=== PATIENT | male | born 1930 | race Caucasian/White ===

== ENCOUNTER → 2016-10-11 | Outpatient (CLI) | payer MEDICARE ==
[2016-10-11 13:23] LABS: Appearance,Urine Clear (Clear); Bilirubin,Urine Negative (Negative); Glucose,Urine (UA) Negative (Negative); Ketones,Urine Negative (Negative); Leukocyte Esterase,Urine Negative (Negative); Nitrite,Urine Negative (Negative); Protein,Urine Negative (Negative); Specific Gravity,Urine 1.004 (1.001-1.035); UA Billing (MACRO vs. MICRO) CHEM; Urobilinogen,Urine <2.0 mg/dL (<2.0)
[2016-10-11 13:25] LABS: CH 32.4; CHCM 32.7; HCT 37.4 % (39.0-53.0); HDW 2.56; HGB 12.6 gm/dL (13.0-17.5); MCH 33.5 pg (25.0-35.0); MCHC 33.7 g/dL (31.0-37.0); MCV 99.5 fL (80.0-100.0); Mean Platelet Volume 8.7; RBC 3.76 m/uL (4.30-5.90); RDW 14.3 % (11.5-15.5); WBC 6.2 k/uL (3.8-10.6)
[2016-10-11 13:30] LABS: INR 1.1 (<1.2); Partial Thromboplastin Time 24.8 sec (22.0-30.0)
[2016-10-11 13:38] LABS: ALT 28 U/L (21-72); AST 23 U/L (17-59); Alkaline Phosphatase 54 U/L (38-126); Anion Gap 7 mmol/L; Blood Urea Nitrogen 14 mg/dL (9-20); Calcium 9.4 mg/dL (8.4-10.2); Carbon Dioxide 28 mmol/L (22-30); Chloride 102 mmol/L (98-107); Glucose 96 mg/dL (74-99); Non-African American GFR(MDRD) >60 (>60 ml/min/1.73 sqM); Potassium 4.3 mmol/L (3.5-5.1); Sodium 137 mmol/L (137-145); Total Bilirubin 0.9 mg/dL (0.2-1.3); Total Protein 7.5 g/dL (6.3-8.2)
== END | disposition home or self-care (01) ==
LOC: LABPAT 12:53
PROVIDERS: ATTEND Orthopaedic Surgery
DX: Z01.812 Encounter for preprocedural laboratory examination (principal)
CPT/HCPCS: 80053; 81003; 85027; 85610; 85730

== ENCOUNTER → 2016-10-14 | Outpatient (CLI) | payer MEDICARE | END | disposition home or self-care (01) | LOC: LABWHC1 11:55 | PROVIDERS: ATTEND Orthopaedic Surgery | DX: Z01.812 Encounter for preprocedural laboratory examination (principal) | CPT/HCPCS: 87070 ==

== ENCOUNTER 2016-10-22 05:49 | Inpatient (IN) | payer MEDICARE ==
--- NOTE | 2016-10-04 16:15 | CONS ---
Consultation regarding preop medical evaluation. HISTORY OF PRESENT ILLNESS: This gentleman, 85-years of age is scheduled to undergo a right direct anterior approach total hip arthroplasty. I have been asked to see the patient preoperatively by the surgeon. The patient basically has pain in the lower back and right hip area, otherwise denies any other major complaints. He does have a history of coronary artery disease with previous CABG. The patient has had no symptoms. Last stress Cardiolite two years ago was negative. The patient has good left ventricular function and no symptoms of angina at present. Patient previously had a CABG in April 2009. Back in October 2009 he had a pericarditis post ( ) syndrome with no substance recurrence. The patient has been having significant back pain and hip pain. Symptoms have been progressive. He previously had epidurals back in April 2016. Not much help. The patient subsequently went to see neurosurgeon. He has seen orthopedic surgeons before and MRI had shown his hip was pretty good. The patient subsequently went in to see a back surgeon that felt that the patients pain was more from the hip. Further evaluation done with orthopedics showed that his hip has deteriorated rapidly. Unclear of the cause of that. They did an EMG that suggested possible myopathy related to statin use. The patient however, denies any other major concerns. He has had no recent infections or bleeding. PAST MEDICAL HISTORY: Significant for carcinoma of the prostate diagnosed September 04, 1995 with no evidence of recurrence. He had a total prostatectomy. History of coronary artery disease diagnosed first for unstable angina back in April 2009, subsequent CABG. History of pericarditis in 2009 resolved, history of degenerative arthritis especially effecting the lumbosacral spine with history of scoliosis of longstanding. No history of any other malignancy, liver disease , kidney disease, ulcers, TB, hepatitis, rheumatic fever. No history of any CVA. PAST SURGICAL HISTORY: Significant for bilateral cataract surgery and total prostatectomy and CABG. PERSONAL HISTORY: Quit smoking about 28 years ago. Used to smoke a pack a day for 13-years. Alcohol none. Vaccinations up to date. Pneumovax June 13, 2016. ALLERGIES: None known. Medications at present include: Aspirin daily, metoprolol 25 mg daily, simvastatin 20 mg daily, Prilosec 15 mg daily, aspirin 81 mg daily. SOCIAL HISTORY: Patient and lives with spouse. FAMILY MEDICAL HISTORY: Father at the age of 54 of cerebral hemorrhage. Mother at the age of 90, history of CVA at 48. She had diabetes mellitus. The patient had sister at age 85, history of diabetes mellitus, gastroesophageal reflux and hypertension. Patient has a son 56 years of age who has history of valvular heart disease post surgery. Has two daughters in adequate health. REVIEW OF SYSTEMS: NEUROLOGIC: Denies any headaches, dizziness. PSYCHIATRIC: No anxiety, depression. CARDIAC: No chest pain, angina, palpitations. RESPIRATORY: No shortness of breath, cough, hemoptysis. GASTROINTESTINAL: No nausea, vomiting, abdominal pain, diarrhea. GENITOURINARY: No symptoms of dysuria, hematuria, urgency or frequency. EXTREMITIES: Denies pain or edema. Constitutional: No fever, chills. HEMATOLOGICAL: No anemia, bleeding disorder. ENDOCRINE: No history of diabetes mellitus, hypothyroidism. SKIN: No rash or open sores. MUSCULOSKELETAL: Right hip pain, lower back pain. CONSTITUTIONAL: No fever or chills. PHYSICAL EXAMINATION: GENERAL: An 85-year-old gentleman who appears to be stated age, in no distress. VITAL SIGNS: Blood pressure 140/90, weight 176 pounds, 5 feet 8 inches tall, pulse 66 regular. HEENT: Normocephalic. Neck supple. Pupils reactive. Nostrils clear. Oral cavity is moist. The dentition is maintained. Ears reveal no drainage. Decreased hearing. No JVD. No carotid bruit or thyromegaly. CHEST: Clear to auscultation and percussion. CARDIAC: Normal S1, S2 with no gallops, murmurs or rubs. ABDOMEN: Soft. Bowel sounds are normal. EXTREMITIES: Reveals no edema. Good pulses both upper and lower extremities. Marked decreased range of motion right hip with pain. There is some decreased range of motion of left hip as well. Good pedal pulses. NEUROLOGIC: Awake, alert, oriented x3 with well coordinated movements of upper and lower extremities with decreased range of motion at the hip joint. LABORATORY ASSESSMENT: EKG, which shows heart rate 66 irregular, post degree AV block and left axis deviation. ASSESSMENT: 1. Coronary artery disease, stable. 2. Degenerative arthritis. 3. Gastroesophageal reflux. PLAN/RECOMMENDATIONS: The patient is stable to undergo the planned surgical procedure. The patients status is discussed with the patient. Benefits and risks are discussed. Postoperative prophylaxis for DVT. The patients condition discussed with the patient. Patient will take his metoprolol with sip of water in the morning of surgery. Other medications will be held. EFREN
[2016-10-11 11:13] VITALS: BMI 26.2
[~2016-10-22 05:49] MED LIST: ACETAMINOPHEN TAB 500 MG TAB PO ONE; DEXAMETHASONE SOD PHOSPHATE 10 MG/ML 1 ML VIAL IV ONE; HYDROmorphone 1 MG/ML 1 ML SYRINGE IVP PRN; LIDOCAINE 1% 20 ML VIAL (10MG/ML) FOR IV START INTRADERMA PRN; MELOXICAM 7.5 MG TAB PO ONE; ONDANSETRON 4 MG/2 ML VIAL IVP ONE; TRANEXAMIC ACID 1,000 MG in SODIUM CHLORIDE 0.9% 100 ML IVPB ONE; ceFAZolin 2 GM in SODIUM CHLORIDE 0.9% 100 ML IVPB ONE
[2016-10-22] MEDS ORDERED: ROPIVACAINE 246.25 MG, EPINEPHrine 0.5 MG, KETOROLAC 30 MG, cloNIDine HCL/PF 80 MCG, WA... MISCELLANE ONE ×5 (05:51)
[2016-10-22] MEDS: LACTATED RINGERS 1,000 ML IV SCH (06:51)
[2016-10-22] MEDS ORDERED: hydrOXYzine PAMOATE 25 MG CAP PO PRN (07:26)
[2016-10-22] MEDS ORDERED: HYDROcodone/APAP 7.5-325MG 1 EACH TAB PO PRN (07:26)
[2016-10-22] MEDS ORDERED: HYDROmorphone 1 MG/ML 1 ML SYRINGE IVP PRN ×2 (07:26)
[2016-10-22] MEDS ORDERED: DIAZEPAM 5 MG TAB PO PRN ×2 (07:26)
[2016-10-22] MEDS ORDERED: NALOXONE 0.4 MG/ML 1 ML VIAL IV PRN (07:26)
[2016-10-22] MEDS ORDERED: ONDANSETRON 4 MG/2 ML VIAL IVP PRN (07:26)
[2016-10-22] MEDS ORDERED: MAGNESIUM HYDROXIDE 2,400 MG/10 ML CUP PO PRN (07:26)
[2016-10-22] MEDS ORDERED: TRANEXAMIC ACID 1,000 MG/10 ML VIAL ONE (07:30)
[2016-10-22] MEDS ORDERED: fentaNYL (PF) 50 MCG/ML 2 ML AMP ONE (07:30)
[2016-10-22] MEDS ORDERED: PHENYLEPHRINE-0.9% NACL SYG 1 MG/10 ML SYRINGE ONE (07:30)
[2016-10-22] MEDS ORDERED: PROPOFOL 10 MG/ML 20 ML VIAL IV ONE (07:30)
[2016-10-22] MEDS ORDERED: SODIUM CHLORIDE 0.9% 100 ML BAG ONE (07:30)
[2016-10-22] MEDS ORDERED: MIDAZOLAM 2 MG/2 ML VIAL ONE (07:30)
[2016-10-22] MEDS ORDERED: diphenhydrAMINE 50 MG/ML 1 ML VIAL ONE (07:30)
[2016-10-22] MEDS ORDERED: ePHEDrine SULFATE/0.9% NACL/PF 50 MG/5 ML SYRINGE IV ONE (07:30)
[2016-10-22] MEDS ORDERED: ceFAZolin 3,000 MG in SODIUM CHLORIDE 0.9% IRRIGATIO 3,000 ML IRRIGATION ONE (08:29)
[2016-10-22] MEDS ORDERED: MELOXICAM 7.5 MG TAB PO SCH (09:00)
[2016-10-22] MEDS ORDERED: LACTATED RINGERS 1,000 ML IV ONE (09:10)
--- NOTE | 2016-10-22 09:18 | FL ---
EXAMINATION TYPE: FL guidance operating room DATE OF EXAM: 10/22/2016 HISTORY: Flouroscopy time 34 seconds of fluoroscopy provided. IMPRESSION: 1. Fluoroscopy time.
--- NOTE | 2016-10-22 09:19 | XR ---
EXAMINATION TYPE: XR Hip Limited RT DATE OF EXAM: 10/22/2016 COMPARISON: NONE HISTORY: hip replacement TECHNIQUE: One view submitted. FINDINGS: There is a prosthetic hip in near anatomic alignment. There is soft tissue edema and emphysema. IMPRESSION: 1. Postoperative change. Appears in near-anatomic alignment.
--- NOTE | 2016-10-22 09:31 | P.OP ---
Date of Procedure: 10/22/16 Preoperative Diagnosis: Severe osteoarthritis right hip Postoperative Diagnosis: Severe osteoarthritis right hip Procedure(s) Performed: Right total hip arthroplasty with a direct anterior approach Implants: Horn and nephew Polarstem size 6 standard Horn & Nephew R3, 3 hole acetabular shell, 52 mm Horn & Nephew reflection 6.5 mm cancellus screw, 20 mm 2 Horn & Nephew R3, XLPE 20 acetabular liner Horn & Nephew Oxinium femoral head 36 m, +8 All components were press-fit. The articulation is ceramic on polyethylene. Anesthesia: spinal Surgeon: Chapin Emery Bottler #1: Nikki Guerrier Estimated Blood Loss (ml): 1,600 (667 mL returned with Cell Saver) Pathology: other (Femoral head) Condition: stable Disposition: PACU Indications for Procedure: After failure of conservative treatment we discussed the surgical and nonsurgical treatment options at length. Patient wishes to proceed with a total hip arthroplasty with a direct anterior approach. Complications specific to this procedure were discussed at length, including but not limited to infection, leg length discrepancy, dislocation, and nerve injury. Patient is aware of all these complications and informed consent was obtained Operative Findings: The operative findings are consistent with severe osteoarthritis of the right hip Description of Procedure: Patient was seen and evaluated in the preoperative area, consent was reviewed, and the surgical site was marked with a skin marker. Patient was then brought to the operating room and given prophylactic antibiotics intravenously. 1 g of Tranexamic acid was also given. A spinal anesthetic was administered by the anesthesia department. The patient was then placed on the Rose table with the bony prominences well-padded. The hip area was then prepped and draped in usual sterile fashion. A universal timeout was then performed, which confirmed the patient's name, surgical site, ALLERGIES, and procedure being performed. Next the incision site was located at 1 cm distal and 1 cm lateral to the anterior superior iliac spine. The skin and subcutaneous tissues were sharply incised. Incision was carefully dissected down to the fascia overlying the tensor fascia libby muscle. This fascia was then incised in line with the incision. Next, using blunt finger dissection, the tensor fascia libby muscle was dissected off its investing fascia. The muscle was then carefully retracted laterally with a cobra retractor over the lateral neck of the femur. Next, the circumflex vessels were identified and cauterized using the AquaMantis device. The anterior hip capsule was then exposed. The capsule was then opened and an inverted T fashion. Cobra retractors were then placed intracapsularly. The proximal femur was then visualized. The femoral neck was then osteotomized appropriate level above the lesser trochanter. Small amount of traction was placed with the Rose table. A small wedge of bone was then removed from the remaining femoral head. Next, using a corkscrew femoral head was easily removed from the acetabulum. On gross visual inspection, the femoral head had complete loss of articular cartilage in multiple periarticular osteophytes. Attention was then turned to the acetabulum. the acetabulum was exposed and any remaining labrum was excised. Sequential reaming of the acetabulum was performed using fluoroscopic guidance. When the appropriate size was reached, a trial was then placed. The position and fit of the trial was checked with fluoroscopy. The trial was then removed. Then, using fluoroscopic guidance, the final implant was impacted at 20 of anteversion and 40 of abduction, and fully seated in the acetabulum. 2 screws were then placed in the acetabulum. Again fluoroscopy was used to check position of the screws. Next, the liner was then impacted, with a 20 elevated liner located in the anterior superior quadrant. Component locking was confirmed. Attention was then directed to the femur. With the aid of the Rose table, the femur was externally rotated to approximately 130, extended, and abducted under the opposite leg. A side hook was then placed under the proximal femur, and the side hook elevator was used to elevate the proximal femur. Retractors were then placed. A capsular release was performed, as well as a release of the conjoined tendon, which afforded excellent visualization of the proximal femur. Next, a box osteotome was used to lateralize the proximal femur. A chandelier maker was then used to locate the femoral canal. Sequential broaching was then performed with appropriate size which afforded excellent fixation in the proximal femur. A trial was then placed with appropriate head and neck, and the hip was gently reduced with the aid of the Rose table. Fluoroscopy was then used to check position of the components, as well as to ensure equal leg lengths. The hip was then gently dislocated and the trials were then removed. Final implants were then impacted and the hip was again reduced. Prior to reduction, bone wax was placed around the femoral component due to the continuous blood loss from the canal. After placement of the bone wax, there was significant decrease in bleeding from the canal. Final fluoroscopic x-rays confirmed that the components were in anatomic position, as well as equal leg lengths. The hip was also taken through range of motion, and found to be stable. The hip was then copiously irrigated with antibiotic solution with pulsatile lavage. The hip was then irrigated with Irrisept solution. The soft tissues were then injected with a ropivacaine solution, which consisted of 246.25 mg of ropivacaine, 0.5 mg of epinephrine, 30 mg of Toradol, 80 g of clonidine, and 48.45 mL of sterile water, for a total of 100 mL of fluid injected. A second dose of 1 g of Tranexamic acid was also given. the fascia was then closed with 2-0 strata fix suture. The subcutaneous tissue was closed with 3-0 Vicryl. The subcuticular tissue was closed with 3-0 strata fix suture. The skin was then closed with Dermabond tape. The patient was then transferred to the recovery room in stable condition. The assistant housekeeping manager CHYNA Beard was required due to the complexity of surgery, and the need for skilled assistant professor of economics for positioning, draping, exposure, retraction, and closure of the wound.
--- NOTE | 2016-10-22 10:06 | XR ---
EXAMINATION TYPE: XR Hip Limited RT DATE OF EXAM: 10/22/2016 COMPARISON: NONE HISTORY: Postop right hip replacement TECHNIQUE: One view submitted. FINDINGS: There is a prosthetic hip in near anatomic alignment. There is soft tissue edema and emphysema. Surg ical clips in the pelvis noted. IMPRESSION: 1. Postoperative change. Appears in near-anatomic alignment.
[2016-10-22] MEDS: ASPIRIN 325 MG TAB PO SCH ×2 (12:09→22:21)
[2016-10-22] MEDS: HYDROmorphone 1 MG/ML 1 ML SYRINGE IVP PRN ×2 (13:24→23:33)
[2016-10-22 14:18] LABS: Basophils % (A) 0 %; CH 30.4; CHCM 31.4; Eosinophils % (A) 0 %; HCT 36.1 % (39.0-53.0); HDW 2.63; HGB 11.9 gm/dL (13.0-17.5); Hypochromasia Slight; Luc # (Auto) 0.08; Luc % (Auto) 1; Lymphocytes # (A) 0.6 k/uL (1.0-4.8); Lymphocytes % (A) 4 %; MCH 32.1 pg (25.0-35.0); MCHC 32.9 g/dL (31.0-37.0); MCV 97.5 fL (80.0-100.0); Mean Platelet Volume 8.2; Monocytes # (A) 0.5 k/uL (0-1.0); Monocytes % (A) 4 %; Neutrophils % (A) 91 %; RDW 13.7 % (11.5-15.5); WBC 13.2 k/uL (3.8-10.6); WBC (Perox) 13.75
[2016-10-22] MEDS: ceFAZolin 2 GM in SODIUM CHLORIDE 0.9% 100 ML IVPB SCH (16:01)
[2016-10-22] MEDS: SODIUM CHLORIDE 0.9% 1,000 ML IV SCH (21:42)
[2016-10-22] MEDS: SENNOSIDES-DOCUSATE SODIUM 1 EACH TAB PO SCH (22:21)
[2016-10-22] MEDS: METOPROLOL TARTRATE 25 MG TAB PO SCH (23:32)
[2016-10-23] MEDS: SODIUM CHLORIDE 0.9% 1,000 ML IV SCH ×2 (00:51→09:42)
[2016-10-23] MEDS: ceFAZolin 2 GM in SODIUM CHLORIDE 0.9% 100 ML IVPB SCH (00:51)
[2016-10-23 04:39] VITALS: RESP 16
[2016-10-23] MEDS: HYDROcodone/APAP 7.5-325MG 1 EACH TAB PO PRN ×3 (04:56→17:34)
[2016-10-23] MEDS: LACTATED RINGERS 1,000 ML IV SCH (06:22)
[2016-10-23 07:59] LABS: Basophils % (A) 0 %; CH 31.1; CHCM 32.4; Eosinophils % (A) 1 %; HCT 25.7 % (39.0-53.0); HDW 2.67; Luc # (Auto) 0.15; Luc % (Auto) 2; Lymphocytes # (A) 0.9 k/uL (1.0-4.8); Lymphocytes % (A) 13 %; MCH 32.5 pg (25.0-35.0); MCHC 33.8 g/dL (31.0-37.0); MCV 96.3 fL (80.0-100.0); Mean Platelet Volume 8.2; Monocytes # (A) 0.4 k/uL (0-1.0); Monocytes % (A) 6 %; Neutrophils # (A) 5.3 k/uL (1.3-7.7); Neutrophils % (A) 78 %; RBC 2.67 m/uL (4.30-5.90); RDW 14.1 % (11.5-15.5); WBC 6.8 k/uL (3.8-10.6); WBC (Perox) 7.15
[2016-10-23 08:03] LABS: HGB 8.7 gm/dL (13.0-17.5)
[2016-10-23] MEDS: ASPIRIN 325 MG TAB PO SCH ×2 (08:12→20:14)
[2016-10-23] MEDS: METOPROLOL TARTRATE 25 MG TAB PO SCH ×2 (08:12→20:14)
[2016-10-23] MEDS: MELOXICAM 7.5 MG TAB PO SCH (08:12)
--- NOTE | 2016-10-23 09:23 | PN ---
PROGRESS NOTE CHIEF COMPLAINT: Reevaluation. HISTORY OF PRESENT ILLNESS: This is an 85-year-old gentleman who has undergone right total hip arthroplasty. He is doing well. He has been actually up in the chair and walked. REVIEW OF SYSTEMS: Neuro: Denies any headaches or dizziness. Psych: No anxiety. Cardiac: No chest pain, angina, palpitations. Respiratory: No shortness of breath, cough, hemoptysis. GI: No nausea, vomiting, abdominal pain, diarrhea. : No symptoms of dysuria, hematuria, urgency, frequency. He has not been able to void much. Extremities: Denies pain or edema. Constitutional: No fevers or chills. PHYSICAL EXAMINATION: GENERAL: Pleasant gentleman in no distress. VITAL SIGNS: Temperature 97.8, pulse 79, respirations 17, blood pressure 141/78, pulse ox 95% on room air. HEENT: Normocephalic. NECK: Supple. No JVD. CHEST: Clear to auscultation. CARDIAC: Normal S1, S2 with no gallops or murmurs. ABDOMEN: Soft. Bowel sounds present. EXTREMITIES: Reveal no edema. Good pulses in both upper and lower extremities. NEUROLOGIC: Awake, alert, oriented, with well coordinated movements. LABORATORY ASSESSMENT: CBC revealed a hemoglobin of 11.9 and white count 13.2. ASSESSMENT: 1. Coronary artery disease, stable. 2. Degenerative joint disease, status post right hip arthroplasty. 3. Remote history of carcinoma of the prostate. PLAN: The patient is stable. Continue present medical regimen. Patient's condition discussed with the patient. Prognosis guarded. MMODL / IJN: [id number] /
--- NOTE | 2016-10-23 09:37 | P.PN ---
Subjective Principal diagnosis: Primary osteoarthritis right hip, status post right total hip arthroplasty. This is a pleasant 85-year-old male who is status post total right hip arthroplasty on 10/22/2016. Patient is seen and evaluated at bedside with Dr. Chapin Emery. Patient states he did experience an increase in pain over the night but states his pain is controlled with pain medication. Patient has been up and out of bed. Patient denies any new complaints or numbness, tingling or weakness. Objective - Vital Signs Vital signs: Vital Signs Temp 97.8 F 10/23/16 07:00 Pulse 74 10/23/16 07:00 Resp 16 10/23/16 07:00 BP 106/61 10/23/16 07:00 Pulse Ox 98 10/23/16 07:00 Intake & Output 10/22/16 10/23/16 10/23/16 18:59 06:59 18:59 Intake Total 1401 2095 180 Output Total 1600 1300 Balance -199 795 180 Weight 77.111 kg Intake: IV 1401 520 Sodium Chloride 0.9% 1, 200 520 000 ml @ 65 mls/hr IV . [id number] [facility] Rx#:[id number] Oral 1575 180 Output: Urine 1300 Estimated Blood Loss 1600 Other: Voiding Method Urinal Urinal - Exam Vital signs are stable. Patient is in no acute distress and is alert and oriented 3. Calf is soft and nontender. Incision is clean, dry, and intact. Neurovascular status intact. Patient has full foot and ankle motion. - Labs CBC & Chem 7: 10/23/16 06:13 Labs: Abnormal Lab Results - Last 24 Hours (Table) 10/22/16 10/23/16 Range/Units 13:31 06:13 WBC 13.2 H (3.8-10.6) k/uL RBC 3.70 L 2.67 L (4.30-5.90) m/uL Hgb 11.9 L 8.7 L D (13.0-17.5) gm/dL Hct 36.1 L 25.7 L (39.0-53.0) % Plt Count 119 L (150-450) k/uL Neutrophils # 12.0 H (1.3-7.7) k/uL Lymphocytes # 0.6 L 0.9 L (1.0-4.8) k/uL Assessment and Plan (1) Primary osteoarthritis of right hip Status: Acute (2) S/P total hip arthroplasty Status: Acute Plan: Continue routine postop care. Continue antocoagulation. Weightbearing as tolerated with a walker Daily dressing changes, keep incision clean and dry Possible discharge home tomorrow.
[2016-10-23] MEDS: SENNOSIDES-DOCUSATE SODIUM 1 EACH TAB PO SCH (20:14)
[2016-10-24] MEDS: LACTATED RINGERS 1,000 ML IV SCH (00:48)
[2016-10-24] MEDS: HYDROcodone/APAP 7.5-325MG 1 EACH TAB PO PRN ×2 (04:54→11:24)
[2016-10-24] MEDS: SODIUM CHLORIDE 0.9% 1,000 ML IV SCH (06:37)
[2016-10-24 07:09] LABS: Basophils % (A) 0 %; CH 30.9; CHCM 32.4; Eosinophils % (A) 1 %; HCT 24.8 % (39.0-53.0); HDW 2.57; HGB 8.3 gm/dL (13.0-17.5); Luc # (Auto) 0.15; Luc % (Auto) 2; Lymphocytes # (A) 0.9 k/uL (1.0-4.8); Lymphocytes % (A) 10 %; MCHC 33.4 g/dL (31.0-37.0); MCV 95.8 fL (80.0-100.0); Mean Platelet Volume 8.2; Monocytes # (A) 0.6 k/uL (0-1.0); Monocytes % (A) 8 %; Neutrophils # (A) 6.7 k/uL (1.3-7.7); Neutrophils % (A) 80 %; RBC 2.59 m/uL (4.30-5.90); WBC 8.3 k/uL (3.8-10.6); WBC (Perox) 8.35
[2016-10-24 07:51] VITALS: BP 123/67; PULSE 81; TEMP 98.7
[2016-10-24] MEDS: MELOXICAM 7.5 MG TAB PO SCH (08:14)
[2016-10-24] MEDS: ASPIRIN 325 MG TAB PO SCH (08:14)
[2016-10-24] MEDS: METOPROLOL TARTRATE 25 MG TAB PO SCH (08:14)
--- NOTE | 2016-10-24 08:21 | P.DS ---
Providers Date of admission: 10/22/16 05:49 Expected date of discharge: 10/24/16 Attending physician: Chapin Emery Consults: 10/22/16 07:26 Consult Physician Routine Consulting Provider: Juwan Hadley Consult Reason/Comments: medical management Do you want consulting provider notified?: Yes Primary care physician: Juwan Hadley - Discharge Diagnosis(es) (1) Primary osteoarthritis of right hip Current Visit: Yes Status: Acute (2) S/P total hip arthroplasty Current Visit: Yes Status: Acute Hospital Course: This is a 85-year-old male with known history of degenerative arthritis of the right hip. The patient presents for evaluation. After discussion and consideration patient elects to proceed with total hip arthroplasty. The patient is seen preoperatively by Dr. Emeyr and cleared for surgery. Patient is admitted to [facility] on 10/22/2016 for total hip arthroplasty. The procedures performed without complication or sequelae. The patient is doing well postoperatively. Labs and vital signs are stable on day of discharge. On day of discharge patient's hip incision is healing well. There is minimal erythema. There is no drainage noted at this time. There is minimal soft tissue swelling to the hip and thigh. Patient has full foot and ankle motion without difficulty or pain. Neurovascular status to the right lower extremity is intact. Patient is discharged home in good condition.Please see med rec for accurate list of home medications. Plan - Discharge Summary New Discharge Prescriptions: Continue Simvastatin [Zocor] 40 mg PO HS Multivitamins, Thera [Multivitamin (formulary)] 1 tab PO DAILY Metoprolol Tartrate 25 mg PO BID Ibuprofen [Motrin] 600 mg PO Q8HR PRN PRN Reason: Pain Aspirin [Adult Low Dose Aspirin EC] 81 mg PO DAILY Hydrocodone/Acetaminophen [[place] 7.5-325] 0.5 tab PO QID PRN PRN Reason: Pain Glucosam/Alan-Msm1/C/[place]/Bosw [Glucosamine-[place]ondroitin Tablet] 1 tab PO DAILY Discharge Medication List Metoprolol Tartrate 25 mg PO BID 12/17/13 [History] Multivitamins, Thera [Multivitamin (formulary)] 1 tab PO DAILY 12/17/13 [History ] Simvastatin [Zocor] 40 mg PO HS 12/17/13 [History] Ibuprofen [Motrin] 600 mg PO Q8HR PRN 06/15/14 [History] Aspirin [Adult Low Dose Aspirin EC] 81 mg PO DAILY 10/11/16 [History] Glucosam/Alan-Msm1/C/[place]/Bosw [Glucosamine-Chondroitin Tablet] 1 tab PO DAILY 10/11/16 [History] Hydrocodone/Acetaminophen [[place] 7.5-325] 0.5 tab PO QID PRN 10/11/16 [History]
--- NOTE | 2016-10-24 11:29 | PN ---
PROGRESS NOTE CHIEF COMPLAINT: Reevaluation. HISTORY OF PRESENT ILLNESS: This is an 85-year-old gentleman who is status post right hip arthroplasty. He is doing relatively well except for the pain at the right hip during the night. He did take medication with help. REVIEW OF SYSTEMS: NEURO: Denies any headaches dizziness. PSYCH: No anxiety. CARDIAC: No chest pain, angina, palpitations. RESPIRATORY: No shortness of breath, cough, hemoptysis. GI: No nausea, vomiting, abdominal pain, diarrhea. : No symptoms of dysuria or hematuria, is able to void freely. EXTREMITIES: Pain in the right groin. CONSTITUTIONAL: No fever or chills. PHYSICAL EXAMINATION: A pleasant gentleman at present in no distress. VITAL SIGNS: Temperature 97.8, pulse 74, respirations 16, blood pressure 106/61, pulse ox 98% on room air. HEENT: Normocephalic. NECK: No JVD. CHEST: Clear to auscultation. CARDIAC: Normal S1, S2 with no gallops. ABDOMEN: Soft. Bowel sounds are present. EXTREMITIES: No edema. Good pulses both upper and lower extremities. NEUROLOGICALLY: Awake, alert, oriented with well coordinated movements of upper extremities. LABORATORY ASSESSMENT: The CBC which revealed a hemoglobin of 8.7, white count 6.8, platelet count 119. ASSESSMENT: 1. Anemia secondary to acute blood loss. 2. Stable coronary artery disease. 3. Degenerative arthritis, status post right hip arthroplasty. 4. History of carcinoma of the prostate in remission. PLAN: The patient is stable. Continue present medical regimen. Condition discussed with the patient. Prognosis is guarded. MMODL / IJN: [id number] /
--- NOTE | 2016-10-25 09:33 | PN ---
PROGRESS NOTE ATTENDING PHYSICIAN: Dr. Emery CONSULTING PHYSICIAN: Dr. Hadley CHIEF COMPLAINT: Re-evaluation. HISTORY OF PRESENT ILLNESS: This is an 85-year-old gentleman who is status post right hip arthroplasty. He is doing relatively well. REVIEW OF SYSTEMS: NEURO: Denies any headaches, dizziness. PSYCH: No anxiety. CARDIAC: No chest pain, angina, palpitations. RESPIRATORY: No shortness of breath, cough, hemoptysis. GI: No nausea, vomiting, abdominal pain, diarrhea. Did have bowel movement. : No symptoms, hematuria. Does have fairly good urine flow. EXTREMITIES: Pain in the right hip and thigh area. CONSTITUTIONAL: No fever, chills. PHYSICAL EXAMINATION: GENERAL: Pleasant gentleman in no distress. VITAL SIGNS: Temperature 98.7, pulse 81, respirations 16, blood pressure 123/67, pulse ox 96% on room air. HEENT: Normocephalic. NECK: No JVD. CHEST: Clear to auscultation and percussion. CARDIAC: Normal S1, S2 with no gallops, murmurs. ABDOMEN: Soft. Bowel sounds active. EXTREMITIES; Reveal trace edema right knee area. No ankle edema. NEUROLOGIC: Awake, alert, oriented with well coordinated movements of upper extremities. LABORATORY ASSESSMENT: CBC which shows a hemoglobin of 8.3, white count 8.3, platelet count 127. ASSESSMENT: 1. Anemia secondary to acute blood loss. 2. Thrombocytopenia, improving. 3. Degenerative arthritis, status post right hip arthroplasty. 4. Coronary artery disease, stable. 5. Remote history of carcinoma of the prostate with no recurrence. PLAN: Continue present medical regimen. Patient condition discussed with the patient. The patient is planned for discharge home. Recommend the patient resume his medications including Zocor. The patient's condition discussed with the patient. Prognosis is guarded. MMODL / IJN: [id number] /
== END 2016-10-24 12:15 | disposition home health service (06) | DRG 470 ==
LOC: 2ORMAIN 05:49 → 3SUR 09:33
PROVIDERS: ADMIT Orthopaedic Surgery; ATTEND Orthopaedic Surgery
PROC: 0SR904A Replacement of Right Hip Joint with Ceramic on Polyethylene Synthetic Substitute, Uncemented, Open Approach (ICD-10-PCS; principal; 2016-10-22 07:30)
DX: M16.11 Unilateral primary osteoarthritis, right hip (principal); D69.6 Thrombocytopenia, unspecified; Z95.1 Presence of aortocoronary bypass graft; D62 Acute posthemorrhagic anemia; I25.10 Atherosclerotic heart disease of native coronary artery without angina pectoris; K21.9 Gastro-esophageal reflux disease without esophagitis; M41.9 Scoliosis, unspecified; Z82.49 Family history of ischemic heart disease and other diseases of the circulatory system; Z83.3 Family history of diabetes mellitus; Z85.46 Personal history of malignant neoplasm of prostate; Z87.891 Personal history of nicotine dependence; Z79.82 Long term (current) use of aspirin; Z79.899 Other long term (current) drug therapy
CPT/HCPCS: 36415; 73501; 85025; 86850; 86900; 86901

== ENCOUNTER → 2016-10-29 | Outpatient (CLI) | payer MEDICARE ==
--- NOTE | 2016-10-29 14:43 | US ---
EXAMINATION TYPE: US venous doppler duplex LE RT DATE OF EXAM: 10/29/2016 2:33 PM COMPARISON: Bilateral lower extremity venous ultrasound October 22, 2009 CLINICAL HISTORY: R60.0 LOCALIZED EDEMA. Pt having right leg pain and swelling s/p right hip replacem ent SIDE PERFORMED: Right TECHNIQUE: The lower extremity deep venous system is examined utilizing real time linear array sonog kirby with graded compression, doppler sonography and color-flow sonography. VESSELS IMAGED: External Iliac Vein (EIV) Common Femoral Vein Deep Femoral Vein Greater Saphenous Vein * Femoral Vein Popliteal Vein Small Saphenous Vein * Proximal Calf Veins (* superficial vessels) Right Leg: Negative for DVT Grayscale, color doppler, spectral doppler imaging performed of the deep veins of the right lower ex tremity. There is normal flow, compressibility, vascular waveforms. IMPRESSION: No ultrasound evidence for acute DVT in the right lower extremity.
== END | disposition home or self-care (01) ==
LOC: RADUSWWP 12:07
PROVIDERS: ATTEND Internal Medicine
DX: R60.0 Localized edema (principal)

== ENCOUNTER → 2016-11-06 | Outpatient (CLI) | payer MEDICARE ==
[2016-11-06 11:29] LABS: Basophils % (A) 0 %; CH 29.2; CHCM 31.1; Eosinophils # (A) 0.1 k/uL (0-0.7); Eosinophils % (A) 2 %; HCT 29.4 % (39.0-53.0); HDW 3.53; HGB 9.5 gm/dL (13.0-17.5); Hypochromasia Moderate; Luc # (Auto) 0.15; Luc % (Auto) 2; Lymphocytes # (A) 0.9 k/uL (1.0-4.8); Lymphocytes % (A) 11 %; MCH 30.3 pg (25.0-35.0); MCHC 32.2 g/dL (31.0-37.0); MCV 94.2 fL (80.0-100.0); Mean Platelet Volume 7.2; Monocytes # (A) 0.4 k/uL (0-1.0); Monocytes % (A) 5 %; Neutrophils # (A) 6.6 k/uL (1.3-7.7); Neutrophils % (A) 81 %; Poikilocytosis Slight; RBC 3.12 m/uL (4.30-5.90); RDW 13.8 % (11.5-15.5); WBC 8.2 k/uL (3.8-10.6); WBC (Perox) 8.48
== END | disposition home or self-care (01) ==
LOC: LABWHC1 10:54
PROVIDERS: ATTEND Orthopaedic Surgery
DX: Z47.1 Aftercare following joint replacement surgery (principal); M25.551 Pain in right hip; M25.552 Pain in left hip; Z96.641 Presence of right artificial hip joint; M16.12 Unilateral primary osteoarthritis, left hip
CPT/HCPCS: 36415; 85025

== ENCOUNTER 2016-12-24 10:18 | Inpatient (IN) | payer MEDICARE ==
--- NOTE | 2016-12-13 19:28 | CONS ---
CONSULTATION Consultation regarding preop medical evaluation. HISTORY OF PRESENT ILLNESS: This gentleman is 86 years of age. He is scheduled to undergo a left total hip arthroplasty. The patient has significant pain in the hip joint. He has had a previous right hip arthroplasty with good results. The patient now is scheduled for this surgery. He does also have chronic lower back pain. PAST MEDICAL HISTORY: Patient has a history of coronary artery disease, status post CABG back in 2009. He has had no symptoms of angina. He had a recent surgery during which he had no complications. The patient did have post cardiac surgery an episode of pericarditis with no evidence of recurrence. The patient does have a history of carcinoma of the prostate treated back in 1995. No evidence of recurrence since then. 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 No history of any liver disease, kidney disease, ulcers, TB, hepatitis. No history of any rheumatic fever, myocardial infarction. PAST SURGICAL HISTORY: Significant for inguinal hernia repairs x2, total prostatectomy, CABG and bilateral cataract surgeries, also right total hip arthroplasty. PERSONAL HISTORY: Nonsmoker at present, quit smoking about 25 years ago. He has smoked about 20 years. Used to smoke for about 13 years. He has smoked a pack per day for 13 years. Alcohol rare. VACCINATION HISTORY: Has had previous pneumonia vaccine on June 13, 2016. He had high-dose flu vaccination on November 28, 2016. MEDICATIONS AT PRESENT: Include: 1. Protonix 20 mg daily. 2. Metoprolol 25 mg daily. 3. Simvastatin 20 mg daily. 4. Aspirin 81 mg daily. SOCIAL HISTORY: Patient is , lives with his spouse. The patient has been fairly active until these episodes of degenerative arthritic symptoms of the hip joints. FAMILY MEDICAL HISTORY: Patient's father at the age of 54, cerebral hemorrhage. Mother at the age of 90. She had a history of a CVA at age 45. She was a diabetic. The patient had 1 sister, at the age of 88. She had a history of diabetes mellitus, hypertension. The patient has 1 son, 55 years of age, with a sad history of valvular heart disease requiring surgery. Patient has 2 daughters in adequate health. REVIEW OF SYSTEMS: NEURO: Denies any headaches, dizziness, double vision, blurred vision. No symptoms of TIA, syncope, seizures. PSYCH: No anxiety, depression. CARDIAC: No chest pain, angina, palpitations. RESPIRATORY: No shortness of breath, cough, hemoptysis. GI: No nausea, vomiting, abdominal pain, diarrhea, constipation, hematochezia, melena. : No symptoms of dysuria, hematuria, urgency, frequency. Occasional minimal incontinence. EXTREMITIES: Pain in left hip. MUSCULOSKELETAL: Lower back pain. CONSTITUTIONAL: No fever, chills, weight gain, weight loss. ENT: Adequate smell, taste, decreased hearing. EYES: Adequate vision. SKIN: No rashes or open ulcerations. DENTAL: Well-maintained. PHYSICAL EXAMINATION: Pleasant gentleman in no distress. Vital signs revealed blood pressure was 140/80. He weighs 175 pounds, 5 feet 8 inches tall. He is afebrile. HEENT: Normocephalic. Neck was supple. Pupils reactive. Nostrils clear. Oral cavity is moist. Dentition well-maintained. Neck reveals no JVD, carotid bruits or thyromegaly. CHEST: Clear to auscultation and percussion. CARDIAC: Normal S1, S2 with no gallops, murmurs, rubs. ABDOMEN: Soft. Bowel sounds present. Extremities reveal trace edema at the ankles. NEUROLOGIC: Awake, alert, oriented with well-coordinated movements, both upper extremities. Decreased range of motion of the left hip associated with pain. LAB ASSESSMENT: An EKG from October 01, which showed nonspecific ST changes and 1st-degree AV block. Chemistries and urinalysis pending. PLAN: Continue present medical regimen. Patient's condition discussed with the patient. Patient is stable to undergo the planned surgical procedure. He will take his beta julio and Protonix with a sip of water the a.m. of surgery. All nonsteroidals have been discontinued except for baby aspirin, which is continued. Patient's condition discussed with the patient and spouse. MMODL / IJN: [id number] /
[2016-12-18 09:40] VITALS: BMI 26.6
[~2016-12-24 10:18] MED LIST changes: -DEXAMETHASONE SOD PHOSPHATE 10 MG/ML 1 ML VIAL IV ONE; +HYDROmorphone 0.5 MG/0.5 ML SYRINGE IVP PRN; -HYDROmorphone 1 MG/ML 1 ML SYRINGE IVP PRN; -ceFAZolin 2 GM in SODIUM CHLORIDE 0.9% 100 ML IVPB ONE; +ceFAZolin IN SWFI 2 GM/20 ML SYRINGE IVP ONE
[2016-12-24] MEDS: LACTATED RINGERS 1,000 ML IV SCH (14:19)
[2016-12-24] MEDS ORDERED: fentaNYL (PF) 50 MCG/ML 2 ML AMP ONE (14:52)
[2016-12-24] MEDS ORDERED: MIDAZOLAM 2 MG/2 ML VIAL ONE (14:52)
[2016-12-24] MEDS ORDERED: LIDOCAINE 1% INJ 10MG/ML (20 ML MDV) ONE (14:52)
[2016-12-24] MEDS ORDERED: PROPOFOL 10 MG/ML 20 ML VIAL IV ONE (14:52)
[2016-12-24] MEDS ORDERED: ePHEDrine SULFATE/0.9% NACL/PF 50 MG/5 ML SYRINGE IV ONE (14:52)
[2016-12-24] MEDS ORDERED: SODIUM CHLORIDE 0.9% 100 ML BAG ONE (14:52)
[2016-12-24] MEDS ORDERED: TRANEXAMIC ACID 1,000 MG/10 ML VIAL ONE (14:52)
[2016-12-24] MEDS ORDERED: PHENYLEPHRINE-0.9% NACL SYG 1 MG/10 ML SYRINGE ONE (14:52)
[2016-12-24] MEDS: ROPIVACAINE 246.25 MG, EPINEPHrine 0.5 MG, KETOROLAC 30 MG, cloNIDine HCL/PF 80 MCG, WA... MISCELLANE ONE ×10 (15:28→16:02)
[2016-12-24] MEDS ORDERED: ceFAZolin 3,000 MG in SODIUM CHLORIDE 0.9% IRRIGATIO 3,000 ML IRRIGATION ONE (15:30)
--- NOTE | 2016-12-24 16:16 | P.OP ---
Date of Procedure: 12/24/16 Preoperative Diagnosis: Severe osteoarthritis left hip Postoperative Diagnosis: Severe osteoarthritis left hip Procedure(s) Performed: Left total hip arthroplasty with a direct anterior approach Implants: Horn and nephew Polarstem size 6 standard Horn & Nephew R3, 3 hole acetabular shell, 52 mm Horn & Nephew reflection 6.5 mm cancellus screw, 20 mm 2 Horn & Nephew R3, XLPE 20 acetabular liner Horn & Nephew Oxinium femoral head 36 m, +0 All components were press-fit. The articulation is Oxinium on polyethylene. Anesthesia: spinal Surgeon: Chapin Emery Food Service Sales Representatives #1: Nikki Guerrier Estimated Blood Loss (ml): 650 (255 mL returned with Cell Saver) Pathology: other (Femoral head) Condition: stable Disposition: PACU Indications for Procedure: After failure of conservative treatment we discussed the surgical and nonsurgical treatment options at length. Patient wishes to proceed with a total hip arthroplasty with a direct anterior approach. Complications specific to this procedure were discussed at length, including but not limited to infection, leg length discrepancy, dislocation, and nerve injury. Patient is aware of all these complications and informed consent was obtained Operative Findings: The operative findings are consistent with severe osteoarthritis of the left hip Description of Procedure: Patient was seen and evaluated in the preoperative area, consent was reviewed, and the surgical site was marked with a skin marker. Patient was then brought to the operating room and given prophylactic antibiotics intravenously. 1 g of Tranexamic acid was also given. A spinal anesthetic was administered by the anesthesia department. The patient was then placed on the Charmco table with the bony prominences well-padded. The hip area was then prepped and draped in usual sterile fashion. A universal timeout was then performed, which confirmed the patient's name, surgical site, ALLERGIES, and procedure being performed. Next the incision site was located at 1 cm distal and 1 cm lateral to the anterior superior iliac spine. The skin and subcutaneous tissues were sharply incised. Incision was carefully dissected down to the fascia overlying the tensor fascia libby muscle. This fascia was then incised in line with the incision. Next, using blunt finger dissection, the tensor fascia libby muscle was dissected off its investing fascia. The muscle was then carefully retracted laterally with a cobra retractor over the lateral neck of the femur. Next, the circumflex vessels were identified and cauterized using the AquaMantis device. The anterior hip capsule was then exposed. The capsule was then opened and an inverted T fashion. Cobra retractors were then placed intracapsularly. The proximal femur was then visualized. The femoral neck was then osteotomized appropriate level above the lesser trochanter. Small amount of traction was placed with the Charmco table. A small wedge of bone was then removed from the remaining femoral head. Next, using a corkscrew femoral head was easily removed from the acetabulum. On gross visual inspection, the femoral head had complete loss of articular cartilage in multiple periarticular osteophytes. Attention was then turned to the acetabulum. the acetabulum was exposed and any remaining labrum was excised. Sequential reaming of the acetabulum was performed using fluoroscopic guidance. When the appropriate size was reached, a trial was then placed. The position and fit of the trial was checked with fluoroscopy. The trial was then removed. Then, using fluoroscopic guidance, the final implant was impacted at 20 of anteversion and 40 of abduction, and fully seated in the acetabulum. 2 screws were then placed in the acetabulum. Again fluoroscopy was used to check position of the screws. Next, the liner was then impacted, with a 20 elevated liner located in the anterior superior quadrant. Component locking was confirmed. Attention was then directed to the femur. With the aid of the Charmco table, the femur was externally rotated to approximately 130, extended, and abducted under the opposite leg. A side hook was then placed under the proximal femur, and the side hook elevator was used to elevate the proximal femur. Retractors were then placed. A capsular release was performed, as well as a release of the conjoined tendon, which afforded excellent visualization of the proximal femur. Next, a box osteotome was used to lateralize the proximal femur. A displayer merchandise was then used to locate the femoral canal. Sequential broaching was then performed with appropriate size which afforded excellent fixation in the proximal femur. A trial was then placed with appropriate head and neck, and the hip was gently reduced with the aid of the Charmco table. Fluoroscopy was then used to check position of the components, as well as to ensure equal leg lengths. The hip was then gently dislocated and the trials were then removed. Final implants were then impacted and the hip was again reduced. Final fluoroscopic x-rays confirmed that the components were in anatomic position, as well as equal leg lengths. The hip was also taken through range of motion, and found to be stable. The hip was then copiously irrigated with antibiotic solution with pulsatile lavage. The hip was then irrigated with Irrisept solution. The soft tissues were then injected with a ropivacaine solution, which consisted of 246.25 mg of ropivacaine, 0.5 mg of epinephrine, 30 mg of Toradol, 80 g of clonidine, and 48.45 mL of sterile water, for a total of 100 mL of fluid injected. A second dose of 1 g of Tranexamic acid was also given. the fascia was then closed with 2-0 strata fix suture. The subcutaneous tissue was closed with 3-0 Vicryl. The subcuticular tissue was closed with 3-0 strata fix suture. The skin was then closed with Dermabond glue and a silver dressing. The patient was then transferred to the recovery room in stable condition. The assistant film editor CHYNA Beard was required due to the complexity of surgery, and the need for skilled surgical brace maker for positioning, draping, exposure, retraction, and closure of the wound.
[2016-12-24] MEDS ORDERED: ONDANSETRON 4 MG/2 ML VIAL IVP PRN (16:33)
[2016-12-24] MEDS ORDERED: HYDROmorphone 1 MG/ML 1 ML SYRINGE IVP PRN ×4 (16:33→16:40)
[2016-12-24] MEDS ORDERED: hydrOXYzine PAMOATE 25 MG CAP PO PRN (16:33)
[2016-12-24] MEDS ORDERED: HYDROcodone/APAP 7.5-325MG 1 EACH TAB PO PRN (16:33)
[2016-12-24] MEDS ORDERED: HYDROmorphone 0.5 MG/0.5 ML SYRINGE IVP PRN (16:33)
[2016-12-24] MEDS ORDERED: DIAZEPAM 5 MG TAB PO PRN ×2 (16:33)
[2016-12-24] MEDS ORDERED: NALOXONE 0.4 MG/ML 1 ML VIAL IV PRN (16:33)
[2016-12-24] MEDS ORDERED: MAGNESIUM HYDROXIDE 2,400 MG/10 ML CUP PO PRN (16:33)
[2016-12-24] MEDS ORDERED: SODIUM CHLORIDE 0.9% 1,000 ML IV SCH (16:45)
--- NOTE | 2016-12-24 17:13 | XR ---
EXAMINATION TYPE: XR Hip Limited LT DATE OF EXAM: 12/24/2016 CLINICAL HISTORY: Postoperative evaluation TECHNIQUE: Single portable view of the left hip was submitted. FINDINGS: Noted are changes of total hip arthroplasty with femoral and acetabular components appearin g well seated. Alignment is anatomic. Postsurgical soft tissue changes are evident. IMPRESSION: Satisfactory postoperative alignment
[2016-12-24] MEDS ORDERED: SODIUM CHLORIDE 0.9% 500 ML IV ONE (20:10)
[2016-12-24] MEDS: SODIUM CHLORIDE 0.9% 1,000 ML IV SCH (22:03)
[2016-12-24] MEDS: METOPROLOL TARTRATE 25 MG TAB PO SCH (22:04)
[2016-12-24] MEDS: ATORVASTATIN 20 MG TAB PO SCH (22:04)
[2016-12-24] MEDS: SENNOSIDES-DOCUSATE SODIUM 1 EACH TAB PO SCH (22:05)
--- NOTE | 2016-12-24 22:19 | PN ---
PROGRESS NOTE ATTENDING PHYSICIAN: Dr. Emery. CONSULTING PHYSICIAN: Dr. Hadley. CHIEF COMPLAINT: Re-evaluation. HISTORY OF PRESENT ILLNESS: This gentleman is 86 years of age, who is status post left total hip arthroplasty today. I have seen the patient preoperatively as an the outpatient. He does have a history of coronary artery disease, stable. He has no history of any lung or liver disease. No history of diabetes mellitus, myocardial infarction or CVA. He does have a history of carcinoma of the prostate with no evidence of recurrence. The patient recently had a right total hip arthroplasty with good results. He is had significant arthritis left hip and has undergone this left total hip arthroplasty. He has does have degenerative arthritis of the lumbar spine. The patient is actually doing fairly well. Denies any symptoms. No chest pain. Patient denies any symptoms reviewed except for some pain at the left knee area. REVIEW OF SYSTEMS: Neuro denies any headaches or dizziness. Psych no anxiety. Cardiac no chest pain, angina, palpitation. Respiratory: No shortness of breath, cough. GI no nausea, vomiting, abdominal pain, diarrhea. no symptoms, dysuria, hematuria. Extremities: Some pain in the left lower thigh area. CONSTITUTIONAL: No fever or chills. PHYSICAL EXAMINATION: Pleasant gentleman in no distress. Vital signs reveals blood pressure 95/59, pulse rate 81, respirations 18, afebrile. HEENT: Normocephalic. Neck no JVD. Oral cavity is moist. Chest examination is clear to auscultation. Cardiac normal S1, S2 with no gallops, murmurs. ABDOMEN: Soft. Bowel sounds present. No organomegaly. No abdominal bruits. Extremities revealed no edema. Mild tenderness around the upper knee area on the anterior aspect. Neurologic is awake, alert, oriented x3 with well-coordinated movements both upper extremities. LABORATORY ASSESSMENT: None n. ASSESSMENT: 1. Coronary artery disease, stable. 2. Status post left hip arthroplasty. 3. Remote history of carcinoma of prostate. PLAN: The patient at present is stable. Continue present medical regimen. He will be given some increased fluids. The patient's condition discussed with the patient. Prognosis guarded. MMODL / IJN: [id number] /
[2016-12-25] MEDS: ASPIRIN 325 MG TAB PO SCH ×3 (00:01→20:18)
[2016-12-25] MEDS: ceFAZolin IN SWFI 2 GM/20 ML SYRINGE IVP SCH ×2 (01:15→09:42)
[2016-12-25] MEDS: SODIUM CHLORIDE 0.9% 1,000 ML IV SCH (05:13)
[2016-12-25] MEDS: HYDROcodone/APAP 7.5-325MG 1 EACH TAB PO PRN ×4 (05:13→16:01)
[2016-12-25] MEDS: LACTATED RINGERS 1,000 ML IV SCH (05:13)
[2016-12-25 08:03] LABS: Anisocytosis Slight; Basophils % (A) 0 %; CH 25.3; CHCM 29.3; Eosinophils # (A) 0.1 k/uL (0-0.7); Eosinophils % (A) 2 %; HCT 25.2 % (39.0-53.0); HDW 3.19; Hypochromasia Marked; Luc # (Auto) 0.09; Luc % (Auto) 1; Lymphocytes # (A) 0.7 k/uL (1.0-4.8); Lymphocytes % (A) 11 %; MCH 26.3 pg (25.0-35.0); MCHC 30.5 g/dL (31.0-37.0); MCV 86.4 fL (80.0-100.0); Monocytes # (A) 0.4 k/uL (0-1.0); Monocytes % (A) 6 %; Neutrophils # (A) 4.9 k/uL (1.3-7.7); Neutrophils % (A) 80 %; RBC 2.92 m/uL (4.30-5.90); RDW 16.8 % (11.5-15.5); WBC 6.2 k/uL (3.8-10.6); WBC (Perox) 6.97
--- NOTE | 2016-12-25 08:08 | FL ---
Fluoroscopy HISTORY: Hip arthroplasty 24 seconds fluoroscopy time supplied to the referring clinician. 2 intraoperative C-arm images docum ent the procedure. See dictated report from orthopedic surgery.
--- NOTE | 2016-12-25 08:08 | XR ---
Limited left hip HISTORY: Hip arthroplasty 2 intraoperative C-arm images document the procedure
[2016-12-25 08:11] LABS: HGB 7.7 gm/dL (13.0-17.5)
[2016-12-25] MEDS: MELOXICAM 7.5 MG TAB PO SCH (09:43)
--- NOTE | 2016-12-25 10:05 | P.PN ---
Subjective Progress Note Date: 12/25/16 This is an 86-year-old male who is status post left total hip arthroplasty. This is postoperative day #1. Patient is seen and evaluated at bedside with Dr. Chapin Emery. Patient states he does have some pain to the left hip. Patient denies dizziness but states he does feel somewhat weak today. Patient states he has not been up with physical therapy yet. Objective - Vital Signs Vital signs: Vital Signs Temp 97.7 F 12/25/16 08:18 Pulse 78 12/25/16 08:18 Resp 16 12/25/16 08:18 BP 95/55 12/25/16 08:19 Pulse Ox 98 12/25/16 08:18 Intake & Output 12/24/16 12/25/16 12/25/16 18:59 06:59 18:59 Intake Total 806 360 Output Total 650 Balance 156 360 Weight 77.1 kg Intake: IV 806 Oral 360 Output: Urine 0 Estimated Blood Loss 650 Other: Voiding Method Urinal # Voids 0 1 - Exam Vital signs are stable. Patient is in no acute distress and is alert and oriented 3. Calf is soft and nontender. Dressing is clean, dry, and intact. Neurovascular status intact. Patient has full foot and ankle motion. - Labs CBC & Chem 7: 12/25/16 07:23 Labs: Abnormal Lab Results - Last 24 Hours (Table) 12/25/16 Range/Units 07:23 RBC 2.92 L (4.30-5.90) m/uL Hgb 7.7 L D (13.0-17.5) gm/dL Hct 25.2 L (39.0-53.0) % MCHC 30.5 L (31.0-37.0) g/dL RDW 16.8 H (11.5-15.5) % Plt Count 137 L (150-450) k/uL Lymphocytes # 0.7 L (1.0-4.8) k/uL Assessment and Plan (1) Primary osteoarthritis of left hip Current Visit: Yes Status: Acute Code(s): M16.12 - UNILATERAL PRIMARY OSTEOARTHRITIS, LEFT HIP SNOMED Code(s): 113364724 (2) S/P total hip arthroplasty Current Visit: No Status: Acute Code(s): Z96.649 - PRESENCE OF UNSPECIFIED ARTIFICIAL HIP JOINT SNOMED Code(s): 185960897580 (3) Postoperative anemia Current Visit: Yes Status: Acute Code(s): D64.9 - ANEMIA, UNSPECIFIED SNOMED Code(s): 423144551 Plan: #1. Hemoglobin is 7.7, appreciate input from internal medicine. #2. Continue routine postop care. #3. Continue antocoagulation. #4. Weightbearing as tolerated with a walker #5. Keep dressing intact. #6. Possible discharge home tomorrow if cleared medically.
--- NOTE | 2016-12-25 13:14 | CDI ---
In responding to this query, please exercise your independent professional judgment. The [facility] Coding Staff and Clinical Documentation Specialists appreciate your assistance in clarifying documentation, maintaining compliance with coding guidelines, accurately documenting patients condition and capturing severity of illness. The fact that a question is asked does not imply that any particular answer is desired or expected. Communication forms are a method of clarifying documentation and are not made part of the Legal Health Record. Thank you in advance for your clarification. Last Revision, December 2014 Lincoln [place] [address] [place] [address] Documentation Clarification Form Date: 12/25/2016 1:06:00 PM From: Marcelle Bansal CCS, CCDS Admit Date: 12/24/2016 1:02:00 PM Patient Name: Moody Elizabeth Visit Number: [id number] Discharge Date: Dr. Chapin Emery: A diagnosis of anemia lacks specificity to accurately reflect your patients severity of condition and clarification is needed. Per the orthopedic PN 12/25: Postoperative anemia. Patient history/risk factors: sp Lt ZAHRAA for osteoarthritis. Clinical Indicators: Hemoglobin: Preop n/a. Postop: 7.7 Hematocrit: Preop n/a. Postop: 25.2 Treatment: CBC postop, IV Kefzol, IV Dilaudid, IV Zofran, IV fluid rate 100, recd IV fluid bolus x1 In order to capture the severity of condition, please clarify the type of anemia and etiology if known: Acute blood loss anemia Acute on chronic blood loss anemia Chronic blood loss anemia Iron deficiency anemia Hemolytic anemia Drug induced anemia Unable to determine Other, please specify Is this an expected or unexpected outcome of the patient's surgery? Please document in your progress notes and discharge summary in order to capture severity of illness and risk of mortality. Include clinical findings that support your diagnosis. FYI: Press F11 to launch patient chart. EFREN
[2016-12-25] MEDS: METOPROLOL TARTRATE 25 MG TAB PO SCH ×2 (14:51→20:18)
[2016-12-25] MEDS ORDERED: HYDROcodone/APAP 10-325MG 1 EACH TAB PO PRN (16:17)
[2016-12-25] MEDS: ATORVASTATIN 20 MG TAB PO SCH (20:18)
[2016-12-25] MEDS: SENNOSIDES-DOCUSATE SODIUM 1 EACH TAB PO SCH (20:18)
[2016-12-25] MEDS: HYDROcodone/APAP 10-325MG 1 EACH TAB PO PRN (21:07)
--- NOTE | 2016-12-25 21:20 | PN ---
PROGRESS NOTE ATTENDING PHYSICIAN: Dr. Emery. CONSULTING PHYSICIAN: Dr. Hadley. CHIEF COMPLAINT: Re-evaluation. HISTORY OF PRESENT ILLNESS: This is a pleasant 86-year-old gentleman at present in no distress. He is status post left hip arthroplasty. REVIEW OF SYSTEMS: NEURO: Denies any headaches. Some dizziness. No double vision, blurred vision. No symptoms of TIA, syncope, seizures. PSYCH: No anxiety or depression. CARDIAC: No chest pain, angina or palpitation. RESPIRATORY: No shortness of breath, cough. GI: No nausea, vomiting, abdominal pain, diarrhea. : No symptoms of dysuria, any hematuria. EXTREMITIES: Some pain with the pain which was just over the left knee is no longer present. Does have some pain at the hip joint. CONSTITUTIONAL: No fever, chills. HEMATOLOGICAL: Anemia with a hemoglobin down to 7.7 with no obvious bleeding. PHYSICAL EXAMINATION: Pleasant gentleman in no distress. Vital signs reveal temperature 97.7, pulse 78, respirations 16, blood pressure was 89/55, pulse ox of 98% on room air. HEENT: Normocephalic. NECK: No JVD. CHEST: Clear to auscultation. CARDIAC: Normal S1, S2 with no gallops, murmurs. ABDOMEN: Soft. No palpable masses. Bowel sounds normal. No organomegaly. No abdominal bruits. Extremities reveal no edema. NEUROLOGICAL: Awake, alert, oriented with well-coordinated movements. LABORATORY ASSESSMENT: Hemoglobin 7.7. ASSESSMENT: 1. Anemia secondary to acute blood loss. 2. Coronary artery disease, stable. 3. Status post left hip arthroplasty. 4. Remote history of carcinoma of the prostate. PLAN: The patient is stable. Continue present medical regimen. Recheck patient's hemoglobin in the morning. No transfusion as yet. Prognosis remains guarded. MMODL / IJN: [id number] /
[2016-12-26] MEDS: HYDROcodone/APAP 10-325MG 1 EACH TAB PO PRN (04:17)
[2016-12-26 06:57] LABS: Basophils % (A) 0 %; CH 26.1; CHCM 29.5; Eosinophils # (A) 0.1 k/uL (0-0.7); Eosinophils % (A) 2 %; HCT 25.1 % (39.0-53.0); HDW 3.26; HGB 7.2 gm/dL (13.0-17.5); Hypochromasia Marked; Luc # (Auto) 0.14; Luc % (Auto) 2; Lymphocytes # (A) 0.8 k/uL (1.0-4.8); Lymphocytes % (A) 13 %; MCH 25.6 pg (25.0-35.0); MCHC 28.8 g/dL (31.0-37.0); MCV 88.7 fL (80.0-100.0); Mean Platelet Volume 9.8; Monocytes # (A) 0.5 k/uL (0-1.0); Monocytes % (A) 8 %; Neutrophils # (A) 4.7 k/uL (1.3-7.7); Neutrophils % (A) 74 %; RBC 2.83 m/uL (4.30-5.90); RDW 15.6 % (11.5-15.5); WBC 6.4 k/uL (3.8-10.6); WBC (Perox) 7.04
[2016-12-26 08:22] VITALS: BP 100/66; PULSE 89; RESP 12; TEMP 98.6
--- NOTE | 2016-12-26 09:03 | P.DS ---
Providers Date of admission: 12/24/16 13:02 Expected date of discharge: 12/26/16 Attending physician: Chapin Emery Consults: 12/24/16 16:33 Consult Physician Routine Consulting Provider: Juwan Hadley Consult Reason/Comments: medical management Do you want consulting provider notified?: Yes Primary care physician: Juwan Hadley - Discharge Diagnosis(es) (1) Primary osteoarthritis of left hip Current Visit: Yes Status: Acute (2) S/P total hip arthroplasty Current Visit: No Status: Acute (3) Postoperative anemia Current Visit: Yes Status: Acute Hospital Course: This is a 86-year-old male with known history of degenerative arthritis of the left hip. The patient presents for evaluation. After discussion and consideration patient elects to proceed with total hip arthroplasty. The patient is seen preoperatively by Dr. Emery and cleared for surgery. Patient is admitted to [facility] on 12/24/2016 for total hip arthroplasty. The procedures performed without complication or sequelae. The patient is doing well postoperatively. Labs and vital signs are stable on day of discharge. Patient does have postoperative anemia due to blood loss during surgery. Patient denies dizziness and his blood pressure is stable. On day of discharge patient's hip incision is healing well. There is minimal erythema. There is no drainage noted at this time. There is minimal soft tissue swelling to the hip and thigh. Patient has full foot and ankle motion without difficulty or pain. Neurovascular status to the left lower extremity is intact. Patient is discharged home condition. Please see med rec for accurate list of home medications. Plan - Discharge Summary Discharge Rx Participant: Yes New Discharge Prescriptions: New Aspirin 325 mg PO BID #60 tab HYDROcodone/APAP 7.5-325MG [[place] 7.5-325] 1 - 2 tab PO Q4-6H PRN #90 tab PRN Reason: Pain Sennosides-Docusate Sodium [Senokot-S] 1 tab PO BID #60 tablet No Action Simvastatin [Zocor] 40 mg PO HS Multivitamins, Thera [Multivitamin (formulary)] 1 tab PO DAILY Metoprolol Tartrate 12.5 mg PO BID Hydrocodone/Acetaminophen [[place] 7.5-325] 0.5 tab PO Q3HR PRN PRN Reason: Pain Glucosam/Alan-Msm1/C/[place]/Bosw [Glucosamine-Chondroitin Tablet] 1 tab PO DAILY Aspirin [Adult Low Dose Aspirin EC] 81 mg PO DAILY Sennosides-Docusate Sodium [Senokot-S] 1 tab PO DAILY Discharge Medication List Metoprolol Tartrate 12.5 mg PO BID 12/17/13 [History] Multivitamins, Thera [Multivitamin (formulary)] 1 tab PO DAILY 12/17/13 [History ] Simvastatin [Zocor] 40 mg PO HS 12/17/13 [History] Glucosam/Alan-Msm1/C/[place]/Bosw [Glucosamine-Chondroitin Tablet] 1 tab PO DAILY 10/11/16 [History] Hydrocodone/Acetaminophen [[place] 7.5-325] 0.5 tab PO Q3HR PRN 10/11/16 [History] Aspirin [Adult Low Dose Aspirin EC] 81 mg PO DAILY 12/18/16 [History] Sennosides-Docusate Sodium [Senokot-S] 1 tab PO DAILY 12/18/16 [History] Aspirin 325 mg PO BID #60 tab 12/25/16 [Rx] HYDROcodone/APAP 7.5-325MG [[place] 7.5-325] 1 - 2 tab PO Q4-6H PRN #90 tab [Rx] Sennosides-Docusate Sodium [Senokot-S] 1 tab PO BID #60 tablet 12/25/16 [Rx] Follow up Appointment(s)/Referral(s): Juwan Hadley MD [Primary Care Provider] - 01/02/17 10:15 am Chapin Emery DO [Doctor of Osteopathic Medicine] - 01/01/17 1:45 pm Ambulatory/Diagnostic Orders: Ambulatory Physical Therapy Order [THER.AMB] Location: Determined By Patient Activity/Diet/Wound Care/Special Instructions: Weightbearing as tolerated with walker Leave dressing intact. Dressing may be removed by home care nurse in 7 days, . May shower with dressing on. Follow-up with [facility] in 2 weeks, please call with any questions or concerns [phone] Discharge Disposition: HOME WITH HOME HEALTH SERVICES
[2016-12-26] MEDS: METOPROLOL TARTRATE 25 MG TAB PO SCH (09:52)
[2016-12-26] MEDS: MELOXICAM 7.5 MG TAB PO SCH (09:52)
[2016-12-26] MEDS: ASPIRIN 325 MG TAB PO SCH (09:52)
--- NOTE | 2016-12-27 08:40 | PN ---
PROGRESS NOTE ATTENDING PHYSICIAN: Dr. Ting Hadley. CHIEF COMPLAINT: Re-evaluation. HISTORY OF PRESENT ILLNESS: This is an 86-year-old gentleman who was admitted to the hospital and undergone left total hip arthroplasty anterior approach. The patient is actually doing fairly well. His hemoglobin now has dropped. It was down from 7.7 yesterday, is down to 7.2 today. No evidence of any active bleeding. The patient at the site does not show much ecchymosis. The patient otherwise feels fairly well. The patient does complain of some weakness. Denies any chest pain, shortness of breath. REVIEW OF SYSTEMS: NEURO: Denies any headaches, dizziness. PSYCH: No anxiety. CARDIAC: No chest pain, angina, palpitation. RESPIRATORY: Denies shortness of breath, cough, hemoptysis. GI: No nausea, vomiting, abdominal pain, diarrhea. : No symptoms of dysuria, hematuria. EXTREMITIES: Some pain in the left hip area. CONSTITUTIONAL: No fever, chills. PHYSICAL EXAMINATION: Pleasant gentleman in no distress. Vital signs reveals a temperature 98.6, pulse 89, respirations 12, blood pressure 100/66, pulse ox 98% on room air. HEENT: Normocephalic. NECK: No JVD. CHEST: Clear to auscultation and percussion. CARDIAC: Normal S1, S2 with no gallops, murmurs. ABDOMEN: Soft. Bowel sounds present. EXTREMITIES: No edema. No tenderness. NEUROLOGICALLY: Awake, alert, oriented, well-coordinated. Moves both upper extremities. LABORATORY: CBC which showed hemoglobin 7.2. ASSESSMENT: 1. Anemia secondary to acute blood loss. 2. Coronary artery disease, stable. 3. Hypertension, controlled. PLAN: The patient is stable. Continue present medical regimen. Patient's condition discussed with the patient. Prognosis guarded. He can be discharged home. The patient is recommended to continue taking iron with vitamin C daily. The patient is also recommended to cut his metoprolol down to 12.5 mg b.i.d. The patient will follow up in the outpatient. MMTIFFANIEL / NICOLAS: [id number] /
== END 2016-12-26 14:10 | disposition home health service (06) | DRG 470 ==
LOC: 2ORMAIN 13:02 → 3SUR 17:27
PROVIDERS: ADMIT Orthopaedic Surgery; ATTEND Orthopaedic Surgery
PROC: 0SRB06A Replacement of Left Hip Joint with Oxidized Zirconium on Polyethylene Synthetic Substitute, Uncemented, Open Approach (ICD-10-PCS; principal; 2016-12-24 15:15)
DX: M16.12 Unilateral primary osteoarthritis, left hip (principal); Z95.1 Presence of aortocoronary bypass graft; M41.9 Scoliosis, unspecified; D62 Acute posthemorrhagic anemia; I25.10 Atherosclerotic heart disease of native coronary artery without angina pectoris; I10 Essential (primary) hypertension; M47.816 Spondylosis without myelopathy or radiculopathy, lumbar region; G89.29 Other chronic pain; H91.90 Unspecified hearing loss, unspecified ear; E78.5 Hyperlipidemia, unspecified; Z79.82 Long term (current) use of aspirin; Z79.899 Other long term (current) drug therapy; Z86.59 Personal history of other mental and behavioral disorders; Z85.46 Personal history of malignant neoplasm of prostate; Z96.641 Presence of right artificial hip joint; Z87.891 Personal history of nicotine dependence; Z98.42 Cataract extraction status, left eye; Z98.41 Cataract extraction status, right eye
CPT/HCPCS: 73501; 85025; 86850; 86891; 86900; 86901; 88300; 88305; 88311; 94760

== ENCOUNTER 2017-05-12 21:25 | Inpatient (IN) | payer MEDICARE ==
[2017-05-12 22:32] LABS: Basophils % (A) 0 %; Eosinophils # (A) 0.1 k/uL (0-0.7); Eosinophils % (A) 1 %; HCT 39.2 % (39.0-53.0); Lymphocytes # (A) 1.2 k/uL (1.0-4.8); Lymphocytes % (A) 13 %; MCH 30.9 pg (25.0-35.0); MCHC 33.2 g/dL (31.0-37.0); MCV 93.1 fL (80.0-100.0); Mean Platelet Volume 8.2; Monocytes # (A) 0.4 k/uL (0-1.0); Monocytes % (A) 4 %; Neutrophils # (A) 7.7 k/uL (1.3-7.7); Neutrophils % (A) 80 %; Platelet Count 157 k/uL (150-450); RBC 4.22 m/uL (4.30-5.90); RDW 14.7 % (11.5-15.5); WBC 9.6 k/uL (3.8-10.6)
[2017-05-12 22:46] LABS: ALT 44 U/L (21-72); AST 69 U/L (17-59); Albumin 4.1 g/dL (3.5-5.0); Alkaline Phosphatase 53 U/L (38-126); Anion Gap 11 mmol/L; Blood Urea Nitrogen 16 mg/dL (9-20); Calcium 9.6 mg/dL (8.4-10.2); Carbon Dioxide 26 mmol/L (22-30); Chloride 101 mmol/L (98-107); Glucose 99 mg/dL (74-99); Potassium 3.9 mmol/L (3.5-5.1); Sodium 138 mmol/L (137-145); Total Bilirubin 1.6 mg/dL (0.2-1.3); Total Protein 7.7 g/dL (6.3-8.2)
[2017-05-12 23:07] LABS: Appearance,Urine Clear (Clear); Bilirubin,Urine Negative (Negative); Blood,Urine Negative (Negative); Color,Urine Yellow; Glucose,Urine (UA) Negative (Negative); Ketones,Urine Negative (Negative); Leukocyte Esterase,Urine Negative (Negative); Nitrite,Urine Negative (Negative); Protein,Urine Negative (Negative); Specific Gravity,Urine 1.011 (1.001-1.035); Urobilinogen,Urine <2.0 mg/dL (<2.0)
[2017-05-12 23:22] LABS: Amylase 4354 U/L (30-110)
[2017-05-12 23:23] LABS: Lipase >20000 U/L (23-300)
[2017-05-12] MEDS ORDERED: MORPHINE SULFATE/PF 10MG/10ML VL IV STA (23:29)
[2017-05-12] MEDS ORDERED: RX INFO: IV CONTRAST WAS GIVEN 1 EACH MISC MISCELLANE PRN (23:30)
[2017-05-12] MEDS ORDERED: ONDANSETRON 4 MG/2 ML VIAL IVP PRN (23:38)
[2017-05-12] MEDS ORDERED: NALOXONE 0.4 MG/ML 1 ML VIAL IV PRN (23:38)
[2017-05-12] MEDS ORDERED: MORPHINE SULFATE/PF 10MG/10ML VL IV PRN (23:38)
[2017-05-12] MEDS ORDERED: IBUPROFEN 600 MG TAB PO PRN (23:40)
[2017-05-12] MEDS: SODIUM CHLORIDE 0.9% 1,000 ML IV SCH (23:41)
--- NOTE | 2017-05-12 23:42 | ED ---
Abdominal Pain HPI - General Chief Complaint: Abdominal Pain Stated Complaint: Abd pain Time Seen by Provider: 05/12/17 23:23 Source: patient Mode of arrival: ambulatory Limitations: no limitations - History of Present Illness Initial Comments: Patient is an 86-year-old male who states that he started experiencing upper abdominal pain around 5 PM this afternoon. Patient states he did not have any trauma and was at rest when the pain started coming on area he describes it as severe, constant, and states it does not radiate. He has not noted any worsening or relieving factors. States he did have a similar episode of this previously but did not see a physician as it was not this severe. MD Complaint: abdominal pain Onset/Timin -: hour(s) Location: LUQ, RUQ Radiation: none Migration to: no migration Severity: severe Quality: aching Consistency: constant Improves With: nothing Worsens With: nothing Associated Symptoms: denies other symptoms - Related Data Home Medications Medication Instructions Recorded Confirmed Metoprolol Tartrate 25 mg PO BID 12/17/13 05/12/17 Multivitamins, Thera [Multivitamin 1 tab PO DAILY 12/17/13 05/12/17 (formulary)] Simvastatin [Zocor] 40 mg PO HS 12/17/13 05/12/17 Hydrocodone/Acetaminophen [[place] 1 tab PO Q6H PRN 10/11/16 05/12/17 7.5-325] Sennosides-Docusate Sodium 1 tab PO DAILY 12/18/16 05/12/17 [Senokot-S] Aspirin 325 mg PO DAILY 05/12/17 05/12/17 Ferrous Sulfate [Feosol] 162.5 mg PO DAILY 05/12/17 05/12/17 Ibuprofen [Motrin] 600 mg PO Q8HR PRN 05/12/17 05/12/17 Allergies Allergy/AdvReac Type Severity Reaction Status Date / Time No Known Allergies Allergy Verified 05/12/17 23:13 Review of Systems ROS Statement: Those systems with pertinent positive or pertinent negative responses have been documented in the HPI. ROS Other: All systems not noted in ROS Statement are negative. Constitutional: Denies: fever, chills Respiratory: Denies: cough, dyspnea Cardiovascular: Denies: chest pain, palpitations, edema, syncope Gastrointestinal: Reports: abdominal pain. Denies: nausea, vomiting, diarrhea, constipation, melena, hematochezia Genitourinary: Denies: dysuria, hematuria Musculoskeletal: Denies: back pain Skin: Denies: rash Neurological: Denies: headache Past Medical History Past Medical History: Atrial Fibrillation, Coronary Artery Disease (CAD), Cancer , GERD/Reflux, Hyperlipidemia, Hypertension, Osteoarthritis (OA), Prostate Disorder Additional Past Medical History / Comment(s): hx episode of a-fib and fluid around heart, frequent night time urination, scoliosis, varicose veins, hx prostate cancer History of Any Multi-Drug Resistant Organisms: None Reported Past Surgical History: Coronary Bypass/CABG, Heart Catheterization, Hernia Repair, Joint Replacement, Prostate Surgery Additional Past Surgical History / Comment(s): coby cataracxts, CABG 2 vessel ( 2009), rt hip replacement Past Anesthesia/Blood Transfusion Reactions: Motion Sickness Additional Past Anesthesia/Blood Transfusion Reaction / Comment(s): sea sick one time in past, Past Psychological History: No Psychological Hx Reported Smoking Status: Former smoker Past Alcohol Use History: None Reported Past Drug Use History: None Reported - Past Family History Father Family Medical History: CVA/TIA Additional Family Medical History / Comment(s): Father of CVA at age 53yrs. Mother Family Medical History: No Reported History Additional Family Medical History / Comment(s): Mother at age 89 yrs. General Exam Limitations: no limitations General appearance: alert, in no apparent distress Head exam: Present: atraumatic, normocephalic Eye exam: Present: normal appearance. Absent: scleral icterus, conjunctival injection ENT exam: Present: normal oropharynx Respiratory exam: Present: normal lung sounds bilaterally. Absent: respiratory distress, wheezes, rales, rhonchi, stridor Cardiovascular Exam: Present: regular rate, normal rhythm, normal heart sounds. Absent: systolic murmur, diastolic murmur, rubs, gallop GI/Abdominal exam: Present: soft, tenderness, normal bowel sounds. Absent: distended, guarding, rebound, rigid, mass, pulsatile mass, hernia Extremities exam: Present: normal inspection, normal capillary refill. Absent: pedal edema, calf tenderness Back exam: Present: normal inspection. Absent: CVA tenderness (R), CVA tenderness (L) Neurological exam: Present: alert Skin exam: Present: warm, dry, intact, normal color. Absent: rash Course Vital Signs 05/12/17 05/12/17 21:35 23:41 Temperature 96.9 F L Pulse Rate 73 69 Respiratory 18 18 Rate Blood Pressure 180/91 180/88 O2 Sat by Pulse 99 98 Oximetry Medical Decision Making - Medical Decision Making 86-year-old man presenting with upper abdominal pain and found to have acute pancreatitis. No previous history of same. Case discussed with Dr. Hadley who will admit. The patient is given analgesia and is starting to have some relief. - Lab Data Result diagrams: 05/12/17 22:05 05/12/17 22:05 Lab Results 05/12/17 05/12/17 05/12/17 Range/Units 22:05 22:05 22:47 WBC 9.6 (3.8-10.6) k/uL RBC 4.22 L (4.30-5.90) m/uL Hgb 13.0 (13.0-17.5) gm/dL Hct 39.2 (39.0-53.0) % MCV 93.1 (80.0-100.0) fL MCH 30.9 (25.0-35.0) pg MCHC 33.2 (31.0-37.0) g/dL RDW 14.7 (11.5-15.5) % Plt Count 157 (150-450) k/uL Neutrophils % 80 % Lymphocytes % 13 % Monocytes % 4 % Eosinophils % 1 % Basophils % 0 % Neutrophils # 7.7 (1.3-7.7) k/uL Lymphocytes # 1.2 (1.0-4.8) k/uL Monocytes # 0.4 (0-1.0) k/uL Eosinophils # 0.1 (0-0.7) k/uL Basophils # 0.0 (0-0.2) k/uL Sodium 138 (137-145) mmol/L Potassium 3.9 (3.5-5.1) mmol/L Chloride 101 (98-107) mmol/L Carbon Dioxide 26 (22-30) mmol/L Anion Gap 11 mmol/L BUN 16 (9-20) mg/dL Creatinine 0.80 (0.66-1.25) mg/dL Est GFR (CKD-EPI)AfAm >90 (>60 ml/min/1.73 sqM) Est GFR (CKD-EPI)NonAf 81 (>60 ml/min/1.73 sqM) Glucose 99 (74-99) mg/dL Calcium 9.6 (8.4-10.2) mg/dL Total Bilirubin 1.6 H (0.2-1.3) mg/dL AST 69 H (17-59) U/L ALT 44 (21-72) U/L Alkaline Phosphatase 53 (38-126) U/L Total Protein 7.7 (6.3-8.2) g/dL Albumin 4.1 (3.5-5.0) g/dL Amylase 4354 H* (30-110) U/L Lipase >01173 H (23-300) U/L Urine Color Yellow Urine Appearance Clear (Clear) Urine pH 6.0 (5.0-8.0) Ur Specific [place] 1.011 (1.001-1.035) Urine Protein Negative (Negative) Urine Glucose (UA) Negative (Negative) Urine Ketones Negative (Negative) Urine Blood Negative (Negative) Urine Nitrite Negative (Negative) Urine Bilirubin Negative (Negative) Urine Urobilinogen <2.0 (<2.0) mg/dL Ur Leukocyte Esterase Negative (Negative) Disposition Clinical Impression: Abdominal pain, Pancreatitis Disposition: ADMITTED IP TO THIS HOSP Condition: Fair
[2017-05-12] MEDS ORDERED: MORPHINE SULFATE 4 MG/ML SYRINGE IV STA (23:57)
[2017-05-13] MEDS: FAMOTIDINE 20 MG/2 ML VIAL IV SCH ×3 (00:14→21:35)
--- NOTE | 2017-05-13 00:42 | US ---
EXAMINATION TYPE: US abdomen limited DATE OF EXAM: 05/13/2017 COMPARISON: NONE CLINICAL HISTORY: Pain, attention RUQ. EXAM MEASUREMENTS: Liver Length: 11.8 cm Gallbladder Wall: 0.4 cm CBD: 0.5 cm Right Kidney: 9.7 x 4.1 x 4.2 cm Extensive midline bowel gas. Patients abdomen very tender. Pancreas: Obscured by bowel gas Liver: multiple liver cysts largest in left lobe measuring 3.1 x 2.5 x 2.6cm with irregular wall Gallbladder: hydropic with dependant stone, wall slightly thickened Evidence for sonographic Ferrell's sign: Yes CBD: wnl Right Kidney: portions of lower and upper pole obscured by overlying bowel gas, not well seen IMPRESSION: Dilated gallbladder consistent with cholecystitis. Single gallstone. No dilated ducts. No free fluid. Gallbladder measures 13 x 4.8 cm.
[2017-05-13] MEDS: HYDROcodone/APAP 7.5-325MG 1 EACH TAB PO PRN (01:15)
[2017-05-13] MEDS: MORPHINE SULFATE/PF 10MG/10ML VL IVP PRN ×4 (03:35→14:51)
[2017-05-13] MEDS: SODIUM CHLORIDE 0.9% 1,000 ML IV SCH ×2 (05:13→08:39)
[2017-05-13] MEDS: PIPERACILLIN-TAZOBACTAM 3.375 GM in DEXTROSE/WATER 1 50ML.BAG IVPB SCH ×2 (08:33→16:48)
[2017-05-13] MEDS: METOPROLOL TARTRATE 25 MG TAB PO SCH ×2 (08:36→21:35)
[2017-05-13] MEDS: SENNOSIDES-DOCUSATE SODIUM 1 EACH TAB PO SCH (08:46)
[2017-05-13] MEDS ORDERED: FERROUS SULFATE 325 MG TAB PO SCH (09:00)
[2017-05-13 09:15] LABS: Basophils % (A) 0 %; Eosinophils # (A) 0.1 k/uL (0-0.7); Eosinophils % (A) 1 %; HCT 35.8 % (39.0-53.0); HGB 12.4 gm/dL (13.0-17.5); Lymphocytes # (A) 0.5 k/uL (1.0-4.8); Lymphocytes % (A) 8 %; MCH 32.4 pg (25.0-35.0); MCHC 34.6 g/dL (31.0-37.0); MCV 93.6 fL (80.0-100.0); Monocytes # (A) 0.2 k/uL (0-1.0); Monocytes % (A) 3 %; Neutrophils # (A) 6.1 k/uL (1.3-7.7); Neutrophils % (A) 88 %; Platelet Count 139 k/uL (150-450); RBC 3.83 m/uL (4.30-5.90); RDW 14.6 % (11.5-15.5); WBC 6.9 k/uL (3.8-10.6)
[2017-05-13 09:33] LABS: ALT 74 U/L (21-72); AST 78 U/L (17-59); Albumin 3.6 g/dL (3.5-5.0); Alkaline Phosphatase 57 U/L (38-126); Anion Gap 10 mmol/L; Blood Urea Nitrogen 14 mg/dL (9-20); Calcium 8.5 mg/dL (8.4-10.2); Carbon Dioxide 24 mmol/L (22-30); Chloride 102 mmol/L (98-107); Glucose 114 mg/dL (74-99); Potassium 4.1 mmol/L (3.5-5.1); Sodium 136 mmol/L (137-145); Total Bilirubin 2.2 mg/dL (0.2-1.3); Total Protein 6.8 g/dL (6.3-8.2)
[2017-05-13] MEDS: ASPIRIN 325 MG TAB PO SCH (10:04)
[2017-05-13 10:39] LABS: Lipase 17138 U/L (23-300)
[2017-05-13 10:40] LABS: Amylase 2975 U/L (30-110)
[2017-05-13] MEDS: MULTIVITAMINS, THERA 1 EACH TAB PO SCH (13:17)
--- NOTE | 2017-05-13 13:26 | P.GSCN ---
<Elyse Morales M - Last Filed: 05/13/17 13:11> History of Present Illness Consult date: 05/13/17 Reason for Consult: Abdominal pain History of present illness: Very pleasant 86-year-old gentleman who presented on the day of admission to the emergency room to be evaluated for upper abdominal pain described as a severe constant pain. Given the above clinical presentation a surgical consultation has been requested by the attending states is a nausea sensation no active emesis. Reports that the pain does not radiate. Patient states he has had similar episodes for the last several years self-limiting resolved on their own. He noted that it would be aggravated by food. States that he did not see a physician that the pain was not as a severe. This episode patient stated he could obtain relief came to the emergency room for the above-mentioned symptoms. Currently patient states the pain medication this morning is effective for pain control. In the emergency room the lipase was greater than 20,000 amylase 4354. AST and ALT mildly elevated ligation she takes and states the ultrasound of the abdomen obtained in the emergency room reviewing the report showed multiple liver cyst left lobe with hydropic with dependent stone wall slightly thickened Review of Systems Essentially unremarkable except as mentioned in the present illness Past Medical History Past Medical History: Atrial Fibrillation, Coronary Artery Disease (CAD), Cancer , GERD/Reflux, Hyperlipidemia, Hypertension, Osteoarthritis (OA), Prostate Disorder Additional Past Medical History / Comment(s): hx episode of a-fib and fluid around heart, frequent night time urination, scoliosis, varicose veins, hx prostate cancer History of Any Multi-Drug Resistant Organisms: None Reported Past Surgical History: Coronary Bypass/CABG, Heart Catheterization, Hernia Repair, Joint Replacement, Prostate Surgery Additional Past Surgical History / Comment(s): coby cataracxts, CABG 2 vessel ( 2009), rt hip replacement Past Anesthesia/Blood Transfusion Reactions: Motion Sickness Additional Past Anesthesia/Blood Transfusion Reaction / Comm: sea sick one time in past, Past Psychological History: No Psychological Hx Reported Smoking Status: Former smoker Past Alcohol Use History: None Reported Past Drug Use History: None Reported - Past Family History Father Family Medical History: CVA/TIA Additional Family Medical History / Comment(s): Father of CVA at age 53yrs. Mother Family Medical History: No Reported History Additional Family Medical History / Comment(s): Mother at age 89 yrs. Medications and Allergies Home Medications Medication Instructions Recorded Confirmed Type Metoprolol Tartrate 25 mg PO BID 12/17/13 05/12/17 History Multivitamins, Thera [Multivitamin 1 tab PO DAILY 12/17/13 05/12/17 History (formulary)] Simvastatin [Zocor] 40 mg PO HS 12/17/13 05/12/17 History Hydrocodone/Acetaminophen [[place] 1 tab PO Q6H PRN 10/11/16 05/12/17 History 7.5-325] Sennosides-Docusate Sodium 1 tab PO DAILY 12/18/16 05/12/17 History [Senokot-S] Aspirin 325 mg PO DAILY 05/12/17 05/12/17 History Ferrous Sulfate [Feosol] 162.5 mg PO DAILY 05/12/17 05/12/17 History Ibuprofen [Motrin] 600 mg PO Q8HR PRN 05/12/17 05/12/17 History Allergies Allergy/AdvReac Type Severity Reaction Status Date / Time No Known Allergies Allergy Verified 05/12/17 23:13 Surgical - Exam Vital Signs Temp Pulse Resp BP Pulse Ox 96.9 F L 73 18 180/91 99 05/12/17 21:35 05/12/17 21:35 05/12/17 21:35 05/12/17 21:35 05/12/17 21:35 GENERAL APPEARANCE: Pleasant 86-year-old male patient is alert, oriented, in no acute distress. Hard of hearing VITAL SIGNS: Reviewed HEENT: Head is normocephalic and atraumatic. Pupils are equal and reactive. The nares are patent. Oropharynx is clear without lesions. NECK: Supple without lymphadenopathy. Traches midline. HEART: S1, S2. Regular rate and rhythm. No murmur noted denying chest pain when questioning LUNGS: No crackles or wheezes are heard. Adequate air movement bilaterally no cough noted no shortness of breath ABDOMEN: Soft, mild tenderness right upper quadrant nondistended with good bowel sounds. No peritoneal signs. No palpable organomegaly or masses. No nausea no vomiting no stool EXTREMITIES: Normal skin color and turgor. No cyanosis, rash, ulceration, clubbing or edema. Radial pedal pulses are 2/4 bilaterally. NEUROLOGICAL: No focal deficits. Strength and sensation are grossly intact. Results - Labs 05/13/17 08:38 05/13/17 08:38 Abnormal Lab Results - Last 24 Hours (Table) 05/12/17 05/12/17 05/13/17 Range/Units 22:05 22:05 08:38 RBC 4.22 L 3.83 L (4.30-5.90) m/uL Hgb 12.4 L (13.0-17.5) gm/dL Hct 35.8 L (39.0-53.0) % Plt Count 139 L (150-450) k/uL Lymphocytes # 0.5 L (1.0-4.8) k/uL Sodium (137-145) mmol/L Glucose (74-99) mg/dL Total Bilirubin 1.6 H (0.2-1.3) mg/dL AST 69 H (17-59) U/L ALT (21-72) U/L Amylase 4354 H* (30-110) U/L Lipase >67645 H (23-300) U/L 05/13/17 Range/Units 08:38 RBC (4.30-5.90) m/uL Hgb (13.0-17.5) gm/dL Hct (39.0-53.0) % Plt Count (150-450) k/uL Lymphocytes # (1.0-4.8) k/uL Sodium 136 L (137-145) mmol/L Glucose 114 H (74-99) mg/dL Total Bilirubin 2.2 H (0.2-1.3) mg/dL AST 78 H (17-59) U/L ALT 74 H (21-72) U/L Amylase 2975 H* (30-110) U/L Lipase 57098 H (23-300) U/L Diabetes panel 05/12/17 05/13/17 Range/Units 22:05 08:38 Sodium 138 136 L (137-145) mmol/L Potassium 3.9 4.1 (3.5-5.1) mmol/L Chloride 101 102 (98-107) mmol/L Carbon Dioxide 26 24 (22-30) mmol/L BUN 16 14 (9-20) mg/dL Creatinine 0.80 0.72 (0.66-1.25) mg/dL Glucose 99 114 H (74-99) mg/dL Calcium 9.6 8.5 (8.4-10.2) mg/dL AST 69 H 78 H (17-59) U/L ALT 44 74 H (21-72) U/L Alkaline Phosphatase 53 57 (38-126) U/L Total Protein 7.7 6.8 (6.3-8.2) g/dL Albumin 4.1 3.6 (3.5-5.0) g/dL Calcium panel 05/12/17 05/13/17 Range/Units 22:05 08:38 Calcium 9.6 8.5 (8.4-10.2) mg/dL Albumin 4.1 3.6 (3.5-5.0) g/dL Pituitary panel 05/12/17 05/13/17 Range/Units 22:05 08:38 Sodium 138 136 L (137-145) mmol/L Potassium 3.9 4.1 (3.5-5.1) mmol/L Chloride 101 102 (98-107) mmol/L Carbon Dioxide 26 24 (22-30) mmol/L BUN 16 14 (9-20) mg/dL Creatinine 0.80 0.72 (0.66-1.25) mg/dL Glucose 99 114 H (74-99) mg/dL Calcium 9.6 8.5 (8.4-10.2) mg/dL Adrenal panel 05/12/17 05/13/17 Range/Units 22:05 08:38 Sodium 138 136 L (137-145) mmol/L Potassium 3.9 4.1 (3.5-5.1) mmol/L Chloride 101 102 (98-107) mmol/L Carbon Dioxide 26 24 (22-30) mmol/L BUN 16 14 (9-20) mg/dL Creatinine 0.80 0.72 (0.66-1.25) mg/dL Glucose 99 114 H (74-99) mg/dL Calcium 9.6 8.5 (8.4-10.2) mg/dL Total Bilirubin 1.6 H 2.2 H (0.2-1.3) mg/dL AST 69 H 78 H (17-59) U/L ALT 44 74 H (21-72) U/L Alkaline Phosphatase 53 57 (38-126) U/L Total Protein 7.7 6.8 (6.3-8.2) g/dL Albumin 4.1 3.6 (3.5-5.0) g/dL Assessment and Plan Assessment: Impression Present on admission upper bilateral quadrant abdominal pain with elevated lipase and amylase suspect due to acute pancreatitis Ultrasound of the abdomen multiple liver cysts Known coronary artery disease prior coronary artery bypass grafting Ultrasound slight gallbladder wall thickening suspect acute cholelithiasis single gallstone noted History of prostate cancer Plan Repeat labs in the morning follow up on results IV fluid as ordered Pain control DVT and GI prophylaxis Further surgical recommendations pending Dr. Kaba's eval Keep nothing by mouth Surgical consultation note dictated for Dr. kaba The above impression and plan of care have been discussed and directed by signing physician. Elyse Morales nurse practitioner acting as scribe for signing physician. <Gallo Kaba - Last Filed: 05/13/17 20:16> Surgical - Exam Vital Signs Temp Pulse Resp BP Pulse Ox 96.9 F L 73 18 180/91 99 05/12/17 21:35 05/12/17 21:35 05/12/17 21:35 05/12/17 21:35 05/12/17 21:35 Results - Labs 05/13/17 08:38 05/13/17 08:38 Abnormal Lab Results - Last 24 Hours (Table) 05/12/17 05/12/17 05/13/17 Range/Units 22:05 22:05 08:38 RBC 4.22 L 3.83 L (4.30-5.90) m/uL Hgb 12.4 L (13.0-17.5) gm/dL Hct 35.8 L (39.0-53.0) % Plt Count 139 L (150-450) k/uL Lymphocytes # 0.5 L (1.0-4.8) k/uL Sodium (137-145) mmol/L Glucose (74-99) mg/dL Total Bilirubin 1.6 H (0.2-1.3) mg/dL AST 69 H (17-59) U/L ALT (21-72) U/L Amylase 4354 H* (30-110) U/L Lipase >77826 H (23-300) U/L 05/13/17 Range/Units 08:38 RBC (4.30-5.90) m/uL Hgb (13.0-17.5) gm/dL Hct (39.0-53.0) % Plt Count (150-450) k/uL Lymphocytes # (1.0-4.8) k/uL Sodium 136 L (137-145) mmol/L Glucose 114 H (74-99) mg/dL Total Bilirubin 2.2 H (0.2-1.3) mg/dL AST 78 H (17-59) U/L ALT 74 H (21-72) U/L Amylase 2975 H* (30-110) U/L Lipase 84872 H (23-300) U/L Diabetes panel 05/12/17 05/13/17 Range/Units 22:05 08:38 Sodium 138 136 L (137-145) mmol/L Potassium 3.9 4.1 (3.5-5.1) mmol/L Chloride 101 102 (98-107) mmol/L Carbon Dioxide 26 24 (22-30) mmol/L BUN 16 14 (9-20) mg/dL Creatinine 0.80 0.72 (0.66-1.25) mg/dL Glucose 99 114 H (74-99) mg/dL Calcium 9.6 8.5 (8.4-10.2) mg/dL AST 69 H 78 H (17-59) U/L ALT 44 74 H (21-72) U/L Alkaline Phosphatase 53 57 (38-126) U/L Total Protein 7.7 6.8 (6.3-8.2) g/dL Albumin 4.1 3.6 (3.5-5.0) g/dL Calcium panel 05/12/17 05/13/17 Range/Units 22:05 08:38 Calcium 9.6 8.5 (8.4-10.2) mg/dL Albumin 4.1 3.6 (3.5-5.0) g/dL Pituitary panel 05/12/17 05/13/17 Range/Units 22:05 08:38 Sodium 138 136 L (137-145) mmol/L Potassium 3.9 4.1 (3.5-5.1) mmol/L Chloride 101 102 (98-107) mmol/L Carbon Dioxide 26 24 (22-30) mmol/L BUN 16 14 (9-20) mg/dL Creatinine 0.80 0.72 (0.66-1.25) mg/dL Glucose 99 114 H (74-99) mg/dL Calcium 9.6 8.5 (8.4-10.2) mg/dL Adrenal panel 05/12/17 05/13/17 Range/Units 22:05 08:38 Sodium 138 136 L (137-145) mmol/L Potassium 3.9 4.1 (3.5-5.1) mmol/L Chloride 101 102 (98-107) mmol/L Carbon Dioxide 26 24 (22-30) mmol/L BUN 16 14 (9-20) mg/dL Creatinine 0.80 0.72 (0.66-1.25) mg/dL Glucose 99 114 H (74-99) mg/dL Calcium 9.6 8.5 (8.4-10.2) mg/dL Total Bilirubin 1.6 H 2.2 H (0.2-1.3) mg/dL AST 69 H 78 H (17-59) U/L ALT 44 74 H (21-72) U/L Alkaline Phosphatase 53 57 (38-126) U/L Total Protein 7.7 6.8 (6.3-8.2) g/dL Albumin 4.1 3.6 (3.5-5.0) g/dL Assessment and Plan Assessment: As above. Patient began experiencing abdominal pain yesterday. Pain was epigastric in location. He has had numerous episodes of similar pain over the last 2 years. Ultrasound showed gallstones with a normal bile duct however the patient's liver enzymes and pancreatic enzymes both elevated. We'll repeat labs tomorrow. Further decision regarding possible ERCP based on progressive lab values. Patient will eventually require cholecystectomy to prevent future episodes of gallstone pancreatitis. We'll follow with you.
--- NOTE | 2017-05-13 23:57 | HP ---
HISTORY AND PHYSICAL CHIEF COMPLAINT: Abdominal pain. HISTORY OF PRESENT ILLNESS: This 86-year-old gentleman presented to the emergency room complaining of abdominal pain. The pain started fairly suddenly in the epigastric area. No radiation to the back. The patient had no associated vomiting but did have some nausea. No diarrhea. No associated fever or chills. The patient says he has had some similar pains off and on in the past couple of years, but he never really thought much of it. He had once significant pain about 2 years ago when he had gone to the [facility] Emergency Room from [place] after a meal. He said he basically was waiting in the emergency room when he started rolling from side to side on his gurney and the pain disappeared. Ever since then, if he has some discomfort in the abdomen, he would do that movement of rolling from right to left, and the patient says the pain has always disappeared. In the emergency room, the patient was noted to have no fever. Vitals are stable. Patient's lungs are clear. No cardiac symptoms. Further evaluation revealed the patient had markedly elevated amylase and lipase and an ultrasound of the gallbladder revealed a gallstone and evidence of cholecystitis. The patient is felt to have acute pancreatitis and cholecystitis and is admitted to the hospital in view of this. PAST MEDICAL HISTORY: Past medical history is significant for coronary artery disease, for which he had a CABG back in 2009. He has had no symptoms of angina. 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 The patient has bilateral hip arthroplasty with good results. The patient does have some scoliosis. 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 There is no history of any liver disease, kidney disease, ulcers, TB, hepatitis. No history of any rheumatic fever, myocardial infarction or CVA. PAST SURGICAL HISTORY: 1. Hernia repair. 2. Total prostatectomy. 3. CABG. 4. Bilateral cataract surgery. 5. Bilateral total hip arthroplasty. PERSONAL HISTORY: Nonsmoker. Quit smoking about 26 years ago. He used to smoke a pack per day for about 13 years. Alcohol rare. VACCINATION HISTORY: Pneumovax in 2016. He had a seasonal flu shot in November 2016. MEDICATIONS AT PRESENT: 1. Metoprolol 25 daily. 2. Simvastatin 20 mg daily. 3. Aspirin 81 mg daily. 4. Protonix 20 mg daily. SOCIAL HISTORY: Patient is , lives with his spouse. The patient has been fairly active. FAMILY MEDICAL HISTORY: Father at the age of 54 with history of cerebral hemorrhage. Mother at the age of 90. She had a CVA at age 45. She was a diabetic patient. One sister at the age of 88. She had history of diabetes mellitus and hypertension. The patient has one son, 56 years of age, with a history of valvular heart disease requiring surgery. The patient has 2 daughters in adequate health. REVIEW OF SYSTEMS: NEURO: Denies any headaches, dizziness. No double vision or blurred vision. No symptoms of TIA or syncope or seizures. PSYCH: No anxiety, depression. CARDIAC: Denies chest pain, angina, palpitations. RESPIRATORY: Denies shortness of breath, cough, hemoptysis. GI: Present complaint of some nausea, abdominal pain. The patient's abdominal pain started after a fatty meal. No diarrhea, constipation. : No symptoms of dysuria, hematuria, urgency, frequency. EXTREMITIES: Denies pain, edema. MUSCULOSKELETAL: Chronic lower back pain. CONSTITUTIONAL: No fever, chills. HEMATOLOGICAL: No anemia or bleeding disorder. ENDOCRINE: No history of diabetes mellitus, hypothyroidism. SKIN: No rashes. PHYSICAL EXAMINATION: Pleasant gentleman, at present in no distress. Vital signs revealed temperature 98, pulse 71, respirations 14, blood pressure 161/85, pulse ox 96% on room air. HEENT: Normocephalic. Neck is supple. No JVD. Pupils are reactive, nostrils clear. Oral cavity is dry. Neck reveals no JVD, carotid bruits or thyromegaly. CHEST EXAMINATION: Clear to auscultation and percussion. CARDIAC: Normal S1, S2 with no gallops, murmurs, rubs. Abdomen is mildly tender in the epigastric area with no rebound tenderness. Bowel sounds are active. The patient has some tenderness, right upper quadrant. No rebound tenderness. Extremities reveal no edema. Good pulses, both upper and lower extremities. Neurologically awake, alert, oriented x3 with well-coordinated movements. LABORATORY ASSESSMENT: CBC which was essentially normal. Chemistries revealed normal electrolytes, BUN and creatinine. Bilirubin 1.6, AST 69, amylase 4340, 4354, lipase greater than 20,000. Urinalysis unremarkable. Ultrasound revealed a gallstone and dilated gallbladder consistent with cholecystitis. No dilated ducts. No free fluid. ASSESSMENT: 1. Acute pancreatitis. 2. Acute cholecystitis. 3. Known coronary artery disease, stable. 4. Hyperlipidemia, on medical therapy. 5. Remote history of carcinoma of the prostate. 6. Degenerative arthritis, lumbosacral spine. PLAN: The patient at present is clinically stable. Continue present medical regimen. Patient is n.p.o. Continue with IV fluids, pain medication, antibiotic. Patient's condition was discussed with the patient. Prognosis guarded. Will have Dr. Lazo evaluate the patient for concomitant management. Patient subsequently may require cholecystectomy once the pancreatitis settles down. Prognosis remains guarded. MMODL / IJN: [id number] /
[2017-05-14] MEDS: PIPERACILLIN-TAZOBACTAM 3.375 GM in DEXTROSE/WATER 1 50ML.BAG IVPB SCH ×4 (00:02→23:40)
[2017-05-14] MEDS: SODIUM CHLORIDE 0.9% 1,000 ML IV SCH ×3 (02:06→14:31)
--- NOTE | 2017-05-14 07:15 | P.PN ---
Subjective Progress Note Date: 05/14/17 Principal diagnosis: Pancreatitis Patient feels well this morning. No pain presently. Morning labs are pending. Objective - Vital Signs Vital signs: Vital Signs Temp 98.2 F 05/14/17 06:34 Pulse 71 05/14/17 06:34 Resp 16 05/14/17 06:34 BP 106/45 05/14/17 06:34 Pulse Ox 96 05/14/17 06:34 Intake & Output 05/13/17 05/14/17 05/14/17 18:59 06:59 18:59 Intake Total 800 Balance 800 Intake: Intake, IV Titration 800 Amount Sodium Chloride 0.9% 1, 800 000 ml @ 100 mls/hr IV . Q10H ELISA Rx#:[id number] Other: Voiding Method Urinal # Voids 2 - Exam Abdomen: Soft, nondistended, mild epigastric tenderness - Labs CBC & Chem 7: 05/13/17 08:38 05/13/17 08:38 Labs: Abnormal Lab Results - Last 24 Hours (Table) 05/13/17 05/13/17 Range/Units 08:38 08:38 RBC 3.83 L (4.30-5.90) m/uL Hgb 12.4 L (13.0-17.5) gm/dL Hct 35.8 L (39.0-53.0) % Plt Count 139 L (150-450) k/uL Lymphocytes # 0.5 L (1.0-4.8) k/uL Sodium 136 L (137-145) mmol/L Glucose 114 H (74-99) mg/dL Total Bilirubin 2.2 H (0.2-1.3) mg/dL AST 78 H (17-59) U/L ALT 74 H (21-72) U/L Amylase 2975 H* (30-110) U/L Lipase 18513 H (23-300) U/L Assessment and Plan (1) Pancreatitis Narrative/Plan: Will check morning labs. If labs are trending down would resume diet. Patient I discussed the options of cholecystectomy. I will be leaving town today but may schedule his cholecystectomy electively as an outpatient. Patient is requesting that versus having a different surgeon perform his operation at this time. Those decisions may change pending review of lab work. Current Visit: Yes Status: Acute Code(s): K85.90 - ACUTE PANCREATITIS WITHOUT NECROSIS OR INFECTION, UNSP SNOMED Code(s): 39716878
[2017-05-14] MEDS: ASPIRIN 325 MG TAB PO SCH (08:04)
[2017-05-14] MEDS: FAMOTIDINE 20 MG/2 ML VIAL IV SCH ×2 (08:04→20:49)
[2017-05-14] MEDS: METOPROLOL TARTRATE 25 MG TAB PO SCH ×2 (08:05→20:49)
[2017-05-14] MEDS: SENNOSIDES-DOCUSATE SODIUM 1 EACH TAB PO SCH (08:05)
[2017-05-14 09:58] LABS: Albumin 3.5 g/dL (3.5-5.0); Calcium 8.8 mg/dL (8.4-10.2); Potassium 3.8 mmol/L (3.5-5.1); Total Bilirubin 2.5 mg/dL (0.2-1.3); Total Protein 6.6 g/dL (6.3-8.2)
[2017-05-14] MEDS: MULTIVITAMINS, THERA 1 EACH TAB PO SCH (14:31)
[2017-05-14] MEDS ORDERED: MORPHINE ORAL SOLN 10 MG/5 ML CUP PO PRN (15:22)
--- NOTE | 2017-05-14 23:53 | PN ---
PROGRESS NOTE CHIEF COMPLAINT: Re-evaluation. HISTORY OF PRESENT ILLNESS: This is an 86-year-old gentleman who was admitted to the hospital with abdominal pain. The patient is noted to have evidence of pancreatitis and cholecystitis. He does have a gallstone. The patient is actually feeling better today. His pain has resolved. Denies any other associated symptoms of nausea, vomiting. Did have a small bowel movement. The patient is otherwise feeling fairly well. REVIEW OF SYSTEMS: NEURO: Denies any headaches, dizziness. PSYCH: No anxiety. CARDIAC: No chest pain, angina, palpitation. RESPIRATORY: No shortness of breath, cough. GI: No nausea, vomiting, abdominal pain, diarrhea. : No symptoms of dysuria, hematuria. EXTREMITIES: No pain, edema. CONSTITUTIONAL: No fever, chills. PHYSICAL EXAMINATION: Pleasant gentleman in no distress. Vital signs reveal temperature 98.2, pulse 71, respirations 16, blood pressure 106/45, pulse ox 96% room air. HEENT: Normocephalic. NECK: No JVD. CHEST: Clear to auscultation, percussion. CARDIAC: Normal S1, S2 with no gallops, murmurs. ABDOMEN: Soft. Minimal tenderness, right upper quadrant. No guarding or rebound. Bowel sounds are active. Extremities reveal no edema. No tenderness. NEUROLOGIC: Awake, alert, oriented with well-coordinated movements. LABORATORY ASSESSMENT: Bilirubin at 2.6. Electrolytes are normal. BUN, creatinine normal. Glucose is 126. AST back to normal. ALT back to normal. Alkaline phosphatase is normal. Amylase is down to 1060, lipase down to 2567. ASSESSMENT: 1. Resolving acute pancreatitis. 2. Cholecystitis. 3. Cholelithiasis. 4. Stable coronary artery disease. PLAN: Continue present medical regimen. Patient's condition discussed with the patient. Will start the patient on a diet of full liquids. The patient has been seen by the surgeon. Once the patient is stable to be discharged, then plan for outpatient cholecystectomy. The patient's condition is guarded. Prognosis guarded. MMODL / IJN: [id number] /
[2017-05-15 02:12] VITALS: RESP 20
[2017-05-15] MEDS: HYDROcodone/APAP 7.5-325MG 1 EACH TAB PO PRN (02:14)
[2017-05-15] MEDS: SODIUM CHLORIDE 0.9% 1,000 ML IV SCH ×2 (03:12→10:07)
[2017-05-15 06:32] VITALS: BP 138/81; PULSE 65; TEMP 97.6
[2017-05-15] MEDS: SENNOSIDES-DOCUSATE SODIUM 1 EACH TAB PO SCH (07:46)
[2017-05-15] MEDS: FAMOTIDINE 20 MG/2 ML VIAL IV SCH (07:46)
[2017-05-15] MEDS: ASPIRIN 325 MG TAB PO SCH (07:46)
[2017-05-15] MEDS: MULTIVITAMINS, THERA 1 EACH TAB PO SCH (07:46)
[2017-05-15] MEDS: METOPROLOL TARTRATE 25 MG TAB PO SCH (07:46)
[2017-05-15] MEDS: PIPERACILLIN-TAZOBACTAM 3.375 GM in DEXTROSE/WATER 1 50ML.BAG IVPB SCH (07:46)
[2017-05-15 10:14] LABS: ALT 36 U/L (21-72); AST 30 U/L (17-59); Albumin 3.5 g/dL (3.5-5.0); Alkaline Phosphatase 47 U/L (38-126); Amylase 242 U/L (30-110); Anion Gap 12 mmol/L; Blood Urea Nitrogen 11 mg/dL (9-20); Calcium 8.9 mg/dL (8.4-10.2); Carbon Dioxide 23 mmol/L (22-30); Chloride 105 mmol/L (98-107); Glucose 132 mg/dL (74-99); Lipase 366 U/L (23-300); Potassium 3.6 mmol/L (3.5-5.1); Sodium 140 mmol/L (137-145); Total Bilirubin 1.7 mg/dL (0.2-1.3); Total Protein 6.7 g/dL (6.3-8.2)
[2017-05-15] MEDS ORDERED: FAMOTIDINE 20 MG TAB PO SCH (21:00)
--- NOTE | 2017-05-16 08:52 | DS ---
DISCHARGE SUMMARY DATE OF DISCHARGE: 05/15/2017. PRINCIPAL DIAGNOSES: 1. Acute pancreatitis. 2. Acute cholecystitis. 3. Coronary artery disease. 4. Degenerative arthritis. 5. Remote history of carcinoma of the prostate. HISTORY OF PRESENT ILLNESS: This is an 86-year-old gentleman who was admitted to the hospital with complaints of abdominal pain which was mostly upper abdomen. Patient relates that he has had similar pains in the past, which he resolved by rocking from side to side. The patient had no other associated symptoms of vomiting, fever. He did have some nausea. He did have elevated amylase and lipase significantly. His lipase was greater than 20,000. Patient was, in view of this, admitted to the hospital. His liver enzymes were mildly elevated with bilirubin 1.6 at the time of admission and peaked at 2.7, was on the way down. Patient's ultrasound revealed evidence of some cholecystitis and cholelithiasis. The patient's lipase was down to 366 and amylase down to 242 at the time of discharge. Patient had no further symptoms of pain, nausea, vomiting. He did have some diarrhea which at the time of discharge was under control. The patient's white count remained normal. His hemoglobin is 12.5 for the time of discharge. Following hospitalization, patient was given IV fluids, antibiotic, Zosyn, Pepcid, and morphine as needed. Patient's condition stable at the time of discharge. Patient was seen by the surgeon, Dr. Lazo and plans for surgery on May 30. Condition on patient discussed with patient and family. Prognosis remains guarded. Patient at the time of discharge is recommended to follow a low-fat diet. He is to continue with the rest of his medications. He will follow up in the outpatient. MMODL / IJN: [id number] /
--- NOTE | 2017-06-10 13:53 | CDI ---
Documentation Clarification Form Date: 06/10/2017 12:00:00 AM From: LETITIA Purvis; Keyanna Preciado Eap Clinician Phone: If you have a question about this query, please contact Keyanna Preciado Eap Clinician at [phone] between 8am and 5pm. Admit Date: 05/12/2017 11:40:00 PM Patient Name: Moody Elizabeth Visit Number: [id number] Discharge Date: 05/15/2017 ATTENTION: The Clinical Documentation Specialists (CDI) and [facility] Coding Staff appreciate your assistance in clarifying documentation. Please respond to the clarification below the line at the bottom and electronically sign. The CDI & [facility] Coding staff will review the response and follow-up if needed. Please note: Queries are made part of the Legal Health Record. If you have any questions, please contact the author of this message via ITS. Dr. Juwan Hadley The patient has chronic low back pain. Degenerative arthritis of the lumbosacral spine, osteoarthritis and scoliosis are documented. In your professional opinion, can you please clarify the source of chronic pain? Osteoarthritis Degenerative arthritis of lumbosacral spine Scoliosis Other, please specify Unable to determine Please also clarify the site and severity of the scoliosis: Cervical Cervicothoracic Lumbar Lumbosacral Thoracic Thoracolumbar MTDD
--- NOTE | 2017-06-12 19:04 | CDI ---
Last Revision, January 2017 Documentation Clarification Form Date: 06/12/2017 12:00:00 AM From: LETITIA Purvis; Keyanna Preciado Credit Authorizer Phone: If you have a question about this query, please contact Keyanna Preciado Credit Authorizer at [phone] between 8am and 5pm. Admit Date: 05/12/2017 11:40:00 PM Patient Name: Moody Elizabeth Visit Number: [id number] Discharge Date: 05/15/2017 ATTENTION: The Clinical Documentation Specialists (CDI) and [facility] Coding Staff appreciate your assistance in clarifying documentation. Please respond to the clarification below the line at the bottom and electronically sign. The CDI & [facility] Coding staff will review the response and follow-up if needed. Please note: Queries are made part of the Legal Health Record. If you have any questions, please contact the author of this message via ITS. Dr. Juwan Hadley The patient has chronic low back pain. Degenerative arthritis of the lumbosacral spine, osteoarthritis and scoliosis are documented. In your professional opinion, can you please clarify the source of chronic pain? Osteoarthritis Degenerative arthritis of lumbosacral spine Scoliosis Other, please specify Unable to determine Please also clarify the site and severity of the scoliosis: Cervical Cervicothoracic Lumbar Lumbosacral Thoracic Thoracolumbar MTDD
--- NOTE | 2017-06-14 12:26 | P.DS ---
Providers Date of admission: 05/12/17 23:40 Attending physician: Juwan Hadley Primary care physician: Juwan Hadley [facility] Course: Addendum. Patient chronic lower back pain secondary to degenerative arthritis of the lumbosacral spine. Patient has scoliosis of the thoracal lumbar spine Patient Condition at Discharge: Fair Plan - Discharge Summary Discharge Rx Participant: Yes New Discharge Prescriptions: Continue RX: Simvastatin [Zocor] 40 mg PO HS RX: Multivitamins, Thera [Multivitamin (formulary)] 1 tab PO DAILY RX: Metoprolol Tartrate 25 mg PO BID RX: Hydrocodone/Acetaminophen [[place] 7.5-325] 1 tab PO Q6H PRN PRN Reason: Pain RX: Aspirin 325 mg PO DAILY Discontinued Sennosides-Docusate Sodium [Senokot-S] 1 tab PO DAILY No Action Glucosam/Alan-Msm1/C/[place]/Bosw [Glucosamine-Chondroitin Tablet] 1 each PO DAILY Ibuprofen [Ibuprofen] 600 mg PO Q6H PRN PRN Reason: Pain Hydrocodone/Acetaminophen [[place] 5-325] 1 - 2 each PO Q4HR PRN #14 tab PRN Reason: pain Discharge Medication List RX: Metoprolol Tartrate 25 mg PO BID 12/17/13 [History] RX: Multivitamins, Thera [Multivitamin (formulary)] 1 tab PO DAILY 12/17/13 [ History] RX: Simvastatin [Zocor] 40 mg PO HS 12/17/13 [History] RX: Hydrocodone/Acetaminophen [[place] 7.5-325] 1 tab PO Q6H PRN 10/11/16 [History ] RX: Aspirin 325 mg PO DAILY 05/12/17 [History] Glucosam/Alan-Msm1/C/[place]/Bosw [Glucosamine-Chondroitin Tablet] 1 each PO DAILY 05/26/17 [History] Ibuprofen [Ibuprofen] 600 mg PO Q6H PRN 05/26/17 [History] Hydrocodone/Acetaminophen [[place] 5-325] 1 - 2 each PO Q4HR PRN #14 tab 05/29/17 [Rx] Follow up Appointment(s)/Referral(s): Gallo Lazo MD [Medical Doctor] - 05/29/17 10:40 am (Outpatient Cholycystectomy planned. ) Juwan Hadley MD [Primary Care Provider] - 05/19/17 1:15 pm Patient Instructions/Handouts: Pancreatitis (DC) Activity/Diet/Wound Care/Special Instructions: Cardiac, soft diet. Activity as tolerated. Discharge Disposition: HOME SELF-CARE
== END 2017-05-15 13:41 | disposition home or self-care (01) | DRG 439 ==
LOC: EC 21:25 → 4MS4W 23:40
PROVIDERS: ADMIT Internal Medicine; ATTEND Internal Medicine
DX: K85.90 Acute pancreatitis without necrosis or infection, unspecified (principal); K80.12 Calculus of gallbladder with acute and chronic cholecystitis without obstruction; K76.89 Other specified diseases of liver; E78.5 Hyperlipidemia, unspecified; I10 Essential (primary) hypertension; I25.10 Atherosclerotic heart disease of native coronary artery without angina pectoris; K21.9 Gastro-esophageal reflux disease without esophagitis; M19.90 Unspecified osteoarthritis, unspecified site; M47.897 Other spondylosis, lumbosacral region; M41.9 Scoliosis, unspecified; Z79.82 Long term (current) use of aspirin; Z79.899 Other long term (current) drug therapy; Z82.3 Family history of stroke; Z82.49 Family history of ischemic heart disease and other diseases of the circulatory system; Z83.3 Family history of diabetes mellitus; Z85.46 Personal history of malignant neoplasm of prostate; Z87.891 Personal history of nicotine dependence; Z95.1 Presence of aortocoronary bypass graft; Z96.643 Presence of artificial hip joint, bilateral; Z98.42 Cataract extraction status, left eye; Z98.41 Cataract extraction status, right eye; Z79.1 Long term (current) use of non-steroidal anti-inflammatories (NSAID); Z79.891 Long term (current) use of opiate analgesic; Z90.79 Acquired absence of other genital organ(s)
CPT/HCPCS: 36415; 76705; 80053; 81003; 82150; 83690; 85025; 87324; 93005; 96374; 96375; 96376; 99285

== ENCOUNTER 2017-08-26 05:26 | Inpatient (IN) | payer MEDICARE ==
[2017-08-26 06:05] LABS: Basophils % (A) 0 %; Eosinophils # (A) 0.1 k/uL (0-0.7); Eosinophils % (A) 2 %; HCT 41.5 % (39.0-53.0); HGB 13.9 gm/dL (13.0-17.5); Lymphocytes # (A) 2.1 k/uL (1.0-4.8); Lymphocytes % (A) 29 %; MCH 32.6 pg (25.0-35.0); MCHC 33.5 g/dL (31.0-37.0); MCV 97.3 fL (80.0-100.0); Mean Platelet Volume 8.3; Monocytes # (A) 0.5 k/uL (0-1.0); Monocytes % (A) 7 %; Neutrophils # (A) 4.4 k/uL (1.3-7.7); Neutrophils % (A) 60 %; Platelet Count 114 k/uL (150-450); RBC 4.26 m/uL (4.30-5.90); RDW 14.1 % (11.5-15.5); WBC 7.4 k/uL (3.8-10.6)
[2017-08-26 06:19] LABS: INR 1.1 (<1.2); Partial Thromboplastin Time 24.8 sec (22.0-30.0); Prothrombin Time 10.4 sec (9.0-12.0)
--- NOTE | 2017-08-26 06:20 | XR ---
EXAMINATION TYPE: XR chest 2V DATE OF EXAM: 08/26/2017 COMPARISON: Prior chest x-ray October 13, 2015. HISTORY: History of open-heart surgery with chest pressure and pain today. TECHNIQUE: Frontal and lateral views of the chest are obtained. FINDINGS: Post-CABG changes with mediastinal clips and sternal wires is redemonstrated. There is new patchy bibasilar linear atelectasis. No large pleural effusion or pneumothorax is seen bilaterally. The cardiac silhouette size is enlarged on current study with ectatic thoracic aorta. The osseous s tructures are intact. IMPRESSION: Cardiomegaly with new patchy bibasilar linear atelectasis.
[2017-08-26 06:23] LABS: Albumin 4.2 g/dL (3.5-5.0); Calcium 9.2 mg/dL (8.4-10.2); Potassium 4.3 mmol/L (3.5-5.1); Total Bilirubin 1.8 mg/dL (0.2-1.3); Total Protein 7.9 g/dL (6.3-8.2)
[2017-08-26] MEDS ORDERED: NITROGLYCERIN OINT 1 INCH/GM PACKET TOPICAL STA (06:35)
[2017-08-26] MEDS ORDERED: ASPIRIN 81 MG PO STA (06:35)
[2017-08-26] MEDS ORDERED: MORPHINE SULFATE 2 MG/ML SYRINGE IVP STA (06:35)
[2017-08-26 06:36] LABS: Creatine Kinase 50 U/L (55-170)
[2017-08-26] MEDS ORDERED: MAG HYDROX/AL HYDROX/SIMETH 30 ML, HYOSCYAMINE ELIXIR 10 ML, CIMETIDINE HCL 300 MG, LID... PO STA ×4 (06:36)
[2017-08-26] MEDS ORDERED: ONDANSETRON 4 MG/2 ML VIAL IVP STA (06:36)
--- NOTE | 2017-08-26 06:49 | ED ---
Chest Pain HPI - General Chief Complaint: Chest Pain Stated Complaint: Chest Pain Time Seen by Provider: 08/26/17 06:06 Source: patient Mode of arrival: wheelchair Limitations: no limitations - History of Present Illness Initial Comments: Old male comes in with a chest pain since late afternoon yesterday he states he still has some chest pressure and requesting some Tums he denies any shortness of breath but it does hurt when he takes a deep breath. Denies any fever no chills he is not coughing up any phlegm he has a history of CABG CABG was done back in 2009. Denies any history of PE or DVT area denies any headaches no neck stiffness no abdominal pain no frequency urgency dysuria - Related Data Home Medications Medication Instructions Recorded Confirmed Metoprolol Tartrate 25 mg PO BID 12/17/13 08/26/17 Multivitamins, Thera [Multivitamin 1 tab PO DAILY 12/17/13 08/26/17 (formulary)] Simvastatin [Zocor] 40 mg PO HS 12/17/13 08/26/17 Hydrocodone/Acetaminophen [[place] 0.5 tab PO Q6H 10/11/16 08/26/17 7.5-325] Aspirin 325 mg PO DAILY 05/12/17 08/26/17 Glucosam/Alan-Msm1/C/[place]/Bosw 1 tab PO DAILY 05/26/17 08/26/17 [Glucosamine-Chondroitin Tablet] Ibuprofen 600 mg PO TID PRN 05/26/17 08/26/17 Ubidecarenone [Co Q-10] 100 mg PO DAILY 08/26/17 08/26/17 Allergies Allergy/AdvReac Type Severity Reaction Status Date / Time No Known Allergies Allergy Verified 08/26/17 07:47 Review of Systems ROS Statement: Those systems with pertinent positive or pertinent negative responses have been documented in the HPI. ROS Other: All systems not noted in ROS Statement are negative. EKG Findings - EKG Comments: EKG Findings:: EKG is sinus rhythm with a first-degree AV block medical rate 72 TX interval is 216 QRS duration is 94 QT/QTc is 388/453 review of this EKG does reveal flattening of the T-wave in lead 3 and aVL and aVF and inversion in V1 no ST segment elevation or ST depression noticed in this EKG Past Medical History Past Medical History: Atrial Fibrillation, Coronary Artery Disease (CAD), Cancer , GERD/Reflux, Hyperlipidemia, Osteoarthritis (OA), Prostate Disorder Additional Past Medical History / Comment(s): hx episode of a-fib and fluid around heart, frequent night time urination, scoliosis, varicose veins, hx prostate cancer History of Any Multi-Drug Resistant Organisms: None Reported Past Surgical History: Coronary Bypass/CABG, Heart Catheterization, Hernia Repair, Joint Replacement, Prostate Surgery Additional Past Surgical History / Comment(s): coby cataracxts, CABG 2 vessel ( 2009), coby hip replacement-pt states "had larger blood losses with hip surgeries" Past Anesthesia/Blood Transfusion Reactions: Motion Sickness Additional Past Anesthesia/Blood Transfusion Reaction / Comment(s): unknown hx of blood tranfusion Past Psychological History: No Psychological Hx Reported Smoking Status: Former smoker Past Alcohol Use History: None Reported Past Drug Use History: None Reported - Past Family History Father Family Medical History: CVA/TIA Additional Family Medical History / Comment(s): Father of CVA at age 53yrs. Mother Family Medical History: No Reported History Additional Family Medical History / Comment(s): Mother at age 89 yrs. General Exam - General Exam Comments Initial Comments: General: The patient is awake and alert, in no distress, and does not appear acutely ill. Skin: Skin is warm and dry and no rashes or lesions are noted. Eye: Pupils are equal, round and reactive to light, extra-ocular movements are intact; there is normal conjunctiva bilaterally. Ears, nose, mouth and throat: There are moist mucous membranes and no oral lesions. Neck: The neck is supple, there is no tenderness or JVD. Cardiovascular: There is a regular rate and rhythm. No murmur, rub or gallop is appreciated. Respiratory: To auscultation bilateral, no wheezing no rhonchi no distress respiratory mishra noticed Gastrointestinal: Soft, non-distended, non-tender abdomen without masses or organomegaly noted. There is no rebound or guarding present. Bowel sounds are unremarkable. Back: There is no tenderness to palpation in the midline. There is no obvious deformity. Musculoskeletal: Normal ROM, no tenderness, There is no pedal edema. There is no calf tenderness or swelling. No cords were appreciated. Neurological: CN II-XII intact, Cranial nerves III through XII are intact. There are no obvious motor or sensory deficits. Coordination appears grossly intact. Speech is normal. Psychiatric: Cooperative, appropriate mood & affect, normal judgment. Limitations: no limitations Course Vital Signs 08/26/17 08/26/17 08/26/17 05:37 05:50 06:14 Temperature 98.1 F Pulse Rate 81 74 Pulse Rate [ 77 Quality Control Lead ] Respiratory 16 15 Rate Blood Pressure 163/80 142/77 O2 Sat by Pulse 98 98 Oximetry Critical Care Time Total Critical Care Time: 30 Critical Care Time: She was reassessed 3 times, considering his age and now multiple risk factors like CABG no ischemic heart disease he be heparinized he still has a pain he be heparinized discussed with the Dr. Hadley and cardiology consult him a he is hemodynamically stable now he be admitted to selective care Disposition Clinical Impression: Chest pain, Pleuritic chest pain Disposition: ADMITTED IP TO THIS HOSP Condition: Good Referrals: Juwan Hadley MD [Primary Care Provider] - 1-2 days
[2017-08-26 06:50] LABS: Creatine Kinase MB 0.6 ng/mL (0.0-2.4); Troponin I <0.012 ng/mL (0.000-0.034)
[2017-08-26] MEDS ORDERED: HEPARIN SODIUM,PORCINE 5,000 UNIT/ML 1 ML VIAL IV ONE (08:29)
[2017-08-26] MEDS ORDERED: MORPHINE SULFATE 2 MG/ML SYRINGE IVP PRN (08:29)
[2017-08-26] MEDS ORDERED: NITROGLYCERIN SL TABS 0.4 MG TAB SUBLINGUAL PRN (08:29)
[2017-08-26] MEDS: HEPARIN SOD,PORK IN 0.45% NACL 25,000 UNIT in 0.45% NACL 1 500ML.BAG IV SCH (08:47)
[2017-08-26] MEDS ORDERED: NON-FORMULARY DRUG (Ubidecarenone [Co Q-10] 100 MG) PO SCH (09:00)
[2017-08-26] MEDS ORDERED: NON-FORMULARY DRUG (Glucosam/Chon-Msm1/C/Mang/Bosw [Glucosamine-Chondroitin Tablet] 1 TAB) PO SCH (09:00)
[2017-08-26] MEDS: METOPROLOL TARTRATE 25 MG TAB PO SCH ×2 (09:26→19:46)
[2017-08-26 13:45] LABS: Creatine Kinase MB 0.4 ng/mL (0.0-2.4); Troponin I <0.012 ng/mL (0.000-0.034)
[2017-08-26 13:53] LABS: Creatine Kinase 40 U/L (55-170)
--- NOTE | 2017-08-26 14:04 | P.CRDCN ---
History of Present Illness Consult date: 08/26/17 Chief complaint: Chest discomfort History of present illness: This is a pleasant 86-year-old gentleman with a past medical history significant for coronary artery disease and status post coronary artery that was grafting 2 with unknown details at this point and the surgery was performed in 2009 as well as hypertension and dyslipidemia presented to the emergency room complaining of chest discomfort. The patient was in his usual state of health when he does sometimes have chest discomfort in the sternal area and always related that to his surgery in the past until about 3-4 days ago when he started noticing chest discomfort, in the mid of the chest, as a dull/pressure kind of discomfort, without any radiation to the arm or neck or shoulders and with associated symptoms of shortness of breath and feeling nauseated. No noted vomiting and no syncope. No dizziness or lightheadedness. The patient states that the discomfort is mainly after he exerts himself. The EKG showed sinus rhythm was nonspecific changes and flattening of the T wave in the inferolateral leads. The first set of enzymes came in to be unremarkable. The patient continues to have chest discomfort around 5/10 in intensity's. Currently he is on heparin IV. I'm going to add IV nitroglycerin to his current medical regimen. He is on metoprolol and aspirin and we'll continue that. We'll follow-up with the serial cardiac enzymes. 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 History of Any Multi-Drug Resistant Organisms: None Reported Past Surgical History: Coronary Bypass/CABG, Heart Catheterization, Hernia Repair, Joint Replacement, Prostate Surgery Additional Past Surgical History / Comment(s): CABG 2 vessel (2009), coby hip replacements, prostatectomy, bilateral inguinal hernia repairs with R side done twice, colonoscopy with benign polypectomy, bilateral cataract removals. Past Anesthesia/Blood Transfusion Reactions: No Reported Reaction Additional Past Anesthesia/Blood Transfusion Reaction / Comment(s): unknown hx of blood tranfusion Past Psychological History: No Psychological Hx Reported Additional Psychological History / Comment(s): Pt resides with his spouse. He uses no assistive device. He drives. Smoking Status: Former smoker Past Alcohol Use History: None Reported Additional Past Alcohol Use History / Comment(s): Pt states he cannot recall at what age he started smoking but quit smoking in 1959 Past Drug Use History: None Reported Additional Drug Use History / Comment(s): . - Past Family History Father Family Medical History: CVA/TIA Additional Family Medical History / Comment(s): Father of a cerebral hemorrhage at age 53yrs. Mother Family Medical History: CVA/TIA Additional Family Medical History / Comment(s): Mother at age 89 yrs from a CVA. Medications and Allergies Home Medications Medication Instructions Recorded Confirmed Type Metoprolol Tartrate 25 mg PO BID 12/17/13 08/26/17 History Multivitamins, Thera [Multivitamin 1 tab PO DAILY 12/17/13 08/26/17 History (formulary)] Simvastatin [Zocor] 40 mg PO HS 12/17/13 08/26/17 History Hydrocodone/Acetaminophen [[place] 0.5 tab PO Q6H 10/11/16 08/26/17 History 7.5-325] Aspirin 325 mg PO DAILY 05/12/17 08/26/17 History Glucosam/Alan-Msm1/C/[place]/Bosw 1 tab PO DAILY 05/26/17 08/26/17 History [Glucosamine-Chondroitin Tablet] Ibuprofen 600 mg PO TID PRN 05/26/17 08/26/17 History Ubidecarenone [Co Q-10] 100 mg PO DAILY 08/26/17 08/26/17 History Allergies Allergy/AdvReac Type Severity Reaction Status Date / Time No Known Allergies Allergy Verified 08/26/17 07:47 Physical Exam Vitals: Vital Signs Temp Pulse Pulse Resp BP Pulse Ox 08/26/17 12:59 74 16 93/53 97 08/26/17 08:49 78 16 152/87 97 08/26/17 06:14 74 15 142/77 98 08/26/17 05:50 77 08/26/17 05:37 98.1 F 81 16 163/80 98 Intake and Output 08/25/17 08/26/17 08/26/17 22:59 06:59 14:59 Other: Weight 79.379 kg - Constitutional General appearance: no acute distress - Respiratory Respiratory: bilateral: CTA - Cardiovascular Rhythm: regular Heart sounds: normal: S1, S2 Results 08/26/17 05:47 08/26/17 05:47 Cardiac Enzymes 08/26/17 08/26/17 Range/Units 05:47 05:47 AST 27 (17-59) U/L CK-MB (CK-2) 0.6 (0.0-2.4) ng/mL Troponin I <0.012 (0.000-0.034) ng/mL Coagulation 08/26/17 Range/Units 05:47 PT 10.4 (9.0-12.0) sec APTT 24.8 (22.0-30.0) sec CBC 08/26/17 Range/Units 05:47 WBC 7.4 (3.8-10.6) k/uL RBC 4.26 L (4.30-5.90) m/uL Hgb 13.9 (13.0-17.5) gm/dL Hct 41.5 (39.0-53.0) % Plt Count 114 L (150-450) k/uL Comprehensive Metabolic Panel 08/26/17 Range/Units 05:47 Sodium 137 (137-145) mmol/L Potassium 4.3 (3.5-5.1) mmol/L Chloride 98 (98-107) mmol/L Carbon Dioxide 26 (22-30) mmol/L BUN 16 (9-20) mg/dL Creatinine 0.90 (0.66-1.25) mg/dL Glucose 99 (74-99) mg/dL Calcium 9.2 (8.4-10.2) mg/dL AST 27 (17-59) U/L ALT 28 (21-72) U/L Alkaline Phosphatase 54 (38-126) U/L Total Protein 7.9 (6.3-8.2) g/dL Albumin 4.2 (3.5-5.0) g/dL Current Medications Generic Name Dose Route Start Last Admin Trade Name Freq PRN Reason Stop Dose Admin Hydrocodone Bitart/Acetaminophen 0.5 each 08/26/17 08:45 [place] 7.5-325 PO Q6H PRN Moderate Pain Aspirin 325 mg 08/27/17 09:00 Aspirin PO DAILY ELISA Atorvastatin Calcium 20 mg 08/26/17 21:00 Lipitor PO HS [facility] Heparin Sodium/Sodium Chloride 500 mls @ 19.05 mls/hr 08/26/17 08:30 08:47 25,000 unit/ Sodium Chloride IV 12 units/kg/hr .Q24H ELISA 19.05 mls/hr Administration Protocol 12 UNITS/KG/HR Metoprolol Tartrate 25 mg 08/26/17 09:00 08/26/17 09:26 Lopressor PO Not Given BID [facility] Morphine Sulfate 2 mg 08/26/17 08:29 Morphine Sulfate (Inj) IVP Q5M PRN Chest Pain Nitroglycerin 0.4 mg 08/26/17 08:29 Nitrostat SUBLINGUAL Q5M PRN Chest Pain Intake and Output 08/25/17 08/26/17 08/26/17 22:59 06:59 14:59 Other: Weight 79.379 kg 08/26/17 05:47 08/26/17 05:47 Assessment and Plan Assessment: Assessment #1 chest discomfort concerning for angina #2 known CAD and status post CABG Plan #1 rule out an acute coronary event. #2 obtain serial cardiac enzymes #3 repeat the EKG #4 an echocardiogram was Doppler #5 if the patient continues to have chest discomfort or ruled in for acute non- STEMI he needs to have a heart catheterization. Thank you for allowing us participate in his care and we will continue following up with the patient
[2017-08-26] MEDS ORDERED: NITROGLYCERIN-D5W PMX 50 MG in DEXTROSE/WATER 1 250ML.BAG IV SCH (14:15)
[2017-08-26 17:36] LABS: Creatine Kinase 33 U/L (55-170)
[2017-08-26 17:47] LABS: Creatine Kinase MB 0.3 ng/mL (0.0-2.4); Troponin I <0.012 ng/mL (0.000-0.034)
[2017-08-26] MEDS ORDERED: ATORVASTATIN 40 MG TAB PO SCH (21:00)
[2017-08-26] MEDS ORDERED: ATORVASTATIN 20 MG TAB PO SCH (21:00)
[2017-08-26 21:30] LABS: Cholesterol 131 mg/dL (<200); HDL Cholesterol 56 mg/dL (40-60); LDL Cholesterol,Calculated 62 mg/dL (0-99); Triglycerides 66 mg/dL (<150)
[2017-08-26] MEDS: HYDROcodone/APAP 7.5-325MG 1 EACH TAB PO PRN (21:37)
--- NOTE | 2017-08-26 22:13 | HP ---
HISTORY AND PHYSICAL ATTENDING PHYSICIAN: Dr. Joana Hadley. CHIEF COMPLAINT: Chest pain. HISTORY OF PRESENT ILLNESS: This is an 86-year-old gentleman who presents to the hospital with complaints of chest pain which is mostly upper chest and lower neck area bilaterally. There is no associated shortness of breath. The pain seems to be worsening, worse with taking a deep breath. The patient does feel a pressure sensation with that. He does have a history of coronary artery disease. The patient has had a previous stress test done about 2 or 3 years ago, which was negative. He recently underwent bilateral hip surgeries with cardiac complications. The patient a week ago Friday did very heavy work and then this Friday, he again is some burk trimmings and yard work. He had no symptoms of angina with that. The patient has had no other associated symptoms. Symptoms of nausea, vomiting. He told the emergency room to see if Tums would help him. They did give him Tums, which did not seem to help. The patient is admitted to the hospital in view of this constant upper chest pain. He has had a previous history of Faboi syndrome, having developed pericarditis post CABG. The patient's symptoms do not seem to be similar to that. They do not seem to vary whether he lies down or sits up. PAST MEDICAL HISTORY: Significant for coronary artery disease with a previous CABG back in 2009. No symptoms of angina since then. No history of any arrhythmia. The patient has a history of bilateral hip arthritis and is status post bilateral hip arthroplasty with good results. He does have degenerative arthritis of the lumbosacral spine, also associated with some scoliosis. If the patient has a history of carcinoma of the prostate diagnosed and treated back in 1995 with no evidence of recurrence. He did undergo a cholecystectomy for an acute cholecystitis, pancreatitis. No complications thereof. The patient denies any history of lung disease, liver disease, kidney disease, ulcers, TB, hepatitis. No history of any rheumatic fever, myocardial infarction, CVA. He had a pericarditis post CABG. PAST SURGICAL HISTORY: Hernia repair, total prostatectomy, CABG, bilateral cataract surgery, bilateral total hip arthroplasty and cholecystectomy. PERSONAL HISTORY: Nonsmoker, quit smoking about 26 years ago. He used to smoke a pack per day for about 13 years. Alcohol rare. VACCINATION HISTORY: Pneumovax in 2017. As indicated, he has had no flu vaccine since November 2016. MEDICATIONS: At present include: 1. Metoprolol 25 mg daily. 2. Simvastatin 20 mg daily. 3. Aspirin 81 mg daily. 4. Protonix 20 mg daily and. 5. [place] 5/325 q.i.d. SOCIAL HISTORY: The patient is , lives with his spouse. FAMILY MEDICAL HISTORY: The patient's father at age of 54 with a history of cerebral hemorrhage. Mother at the age of 90. She had a CVA at age 45. She was a diabetic. The patient had 1 sister who at the age of 88. She had a history of diabetes mellitus, hypertension. The patient has a son 57, years of age, with a history of valvular heart disease requiring surgery, 2 daughters in adequate health. REVIEW OF SYSTEMS: NEURO: Denies any headaches, dizziness, double vision or blurred vision. No symptoms of TIA, syncope, seizures. PSYCH: Some apprehension, anxiety regarding present ailment. CARDIAC: Present complaint of chest pain. No associated shortness of breath, cough, hemoptysis. RESPIRATORY: Denies shortness of breath, cough, hemoptysis. CARDIAC: Denies any palpitations. GI: No nausea, vomiting, abdominal pain, diarrhea, constipation, hematochezia, melena. : Denies symptoms of dysuria, hematuria, urgency, frequency. EXTREMITIES: Denies pain, edema. CONSTITUTIONAL: No fever, chills. HEMATOLOGICAL: No anemia or bleeding disorder. ENDOCRINE: No history of diabetes mellitus, hypothyroidism. MUSCULOSKELETAL: Chronic back pain. CONSTITUTIONAL: No fever chills. PHYSICAL EXAMINATION: Pleasant gentleman at present in no distress. Vital signs revealed temperature 98.1, pulse 78, respirations 16, blood pressure 152/87, pulse ox of 97% on 2L. HEENT: Normocephalic. Pupils are reactive. Nostrils clear. Oral cavity is moist. Ears reveal no drainage. NECK: No JVD, carotid bruits or thyromegaly. CHEST: Clear to auscultation, percussion. CARDIAC: Normal S1, S2 with no gallops, murmurs or rubs. Mild tenderness upper chest. Lung babin are clear auscultation and percussion. Abdomen is soft. No palpable masses. Bowel sounds normal. No organomegaly. No abdominal bruits. Extremities reveal no edema. Good pulses both upper and lower extremities. Symmetrical pulses right and left. Neurologically, awake, alert, oriented x3 with well-coordinated movements. LABORATORY ASSESSMENT: Troponin on admission negative. White count is normal, hemoglobin is 13.9, platelets are low at 114. PT, PTT are normal. D-dimer is negative. Electrolytes, BUN, creatinine and hepatic function are normal. Bilirubin was 1.8. CPK 50. Negative troponins. BNP was 170. ASSESSMENT: 1. Chest pain, possible angina. 2. Known coronary artery disease, status post coronary artery bypass graft. 3. Hypertension on medical therapy. 4. Hyperlipidemia on medical therapy. 5. Chronic back pain. PLAN: The patient at present is clinically stable, will be admitted to the hospital, started on heparin and nitrates. Continue beta blockers. Cardiology evaluation. MMODL / FUNMIN: [id number] /
[2017-08-27] MEDS: KETOROLAC 30 MG/ML 1 ML VIAL IVP SCH ×5 (05:17→22:38)
[2017-08-27] MEDS: HEPARIN SOD,PORK IN 0.45% NACL 25,000 UNIT in 0.45% NACL 1 500ML.BAG IV SCH (06:52)
[2017-08-27] MEDS: ASPIRIN 325 MG TAB PO SCH (06:52)
[2017-08-27] MEDS: METOPROLOL TARTRATE 25 MG TAB PO SCH ×2 (06:52→20:59)
[2017-08-27] MEDS ORDERED: AMINOPHYLLINE 500 MG/20 ML VIAL IV PRN (08:30)
[2017-08-27] MEDS ORDERED: REGADENOSON 0.4 MG/5 ML SYRINGE IV ONE (08:30)
[2017-08-27] MEDS ORDERED: AMINOPHYLLINE 250 MG/10 ML VIAL IV ONE (10:25)
--- NOTE | 2017-08-27 10:52 | ECHOF ---
Referral Reason:CHEST PAIN MEASUREMENTS -------- HEIGHT: 170.2 cm WEIGHT: 79.4 kg BP: RVIDd: 3.1 cm (< 3.3) IVSd: 1.4 cm (0.6 - 1.1) LVIDd: 4.1 cm (3.9 - 5.3) LVPWd: 1.3 cm (0.6 - 1.1) IVSs: 1.8 cm LVIDs: 2.4 cm LVPWs: 1.5 cm LA Diam: 3.5 cm (2.7 - 3.8) LAESV Index (A-L): 29.63 ml/m Ao Diam: 3.6 cm (2.0 - 3.7) AV Cusp: 1.5 cm (1.5 - 2.6) LA Diam: 4.5 cm (2.7 - 3.8) MV EXCURSION: 23.232 mm (> 18.000) MV EF SLOPE: 79 mm/s (70 - 150) EPSS: 0.1 cm MV E Abraham: 0.63 m/s MV DecT: 242 ms MV A Abraham: 0.82 m/s MV E/A Ratio: 0.76 RAP: 5.00 mmHg RVSP: 27.49 mmHg FINDINGS -------- Sinus rhythm. This was a technically good study. The left ventricular size is normal. There is moderate concentric left ventricular hypertrophy. O verall left ventricular systolic function is normal with, an EF between 55 - 60 %. The right ventricle is normal in size. The left atrial size is normal. Normal LA size by volume 22+/-6 ml/m2. The right atrial size is normal. There is mild aortic regurgitation. Mild mitral annular calcification present. Mild mitral regurgitation is present. Mild tricuspid regurgitation present. There is no evidence of pulmonary hypertension. The right v entricular systolic pressure, as measured by Doppler, is 27.49mmHg. Trace/mild (physiologic) pulmonic regurgitation. The aortic root size is normal. There is no pericardial effusion. CONCLUSIONS -------- 1. The left ventricular size is normal. 2. There is moderate concentric left ventricular hypertrophy. 3. Overall left ventricular systolic function is normal with, an EF between 55 - 60 %. 4. The right ventricle is normal in size. 5. The left atrial size is normal. 6. The right atrial size is normal. 7. There is mild aortic regurgitation. 8. Mild mitral annular calcification present. 9. Mild mitral regurgitation is present. 10. Mild tricuspid regurgitation present. 11. There is no evidence of pulmonary hypertension. 12. The right ventricular systolic pressure, as measured by Doppler, is 27.49mmHg. 13. Trace/mild (physiologic) pulmonic regurgitation. 14. The aortic root size is normal. 15. There is no pericardial effusion. WASH CREW PERSON: Leticia Hernandez RDCS
--- NOTE | 2017-08-27 11:26 | NM ---
EXAMINATION TYPE: NM stress lexiscan cardiolite DATE OF EXAM: 08/27/2017 COMPARISON: Previous exam dated 06/16/2014 HISTORY: Chest pain TECHNIQUE: After the intravenous administration of 9.8 mCi Tc 99m Sestamibi - Cardiolite resting SPE CT images acquired 45 minutes post injection. The patient received 0.4mg Lexiscan, 25.2 mCi Tc 99m Sestamibi - Stress images obtained [address] injection FINDINGS: Review of stress and rest SPECT images demonstrates decreased uptake along the inferior wall on stres s as compared to rest images. Gated analysis shows normal wall motion with an estimated left ventric ular ejection fraction of 59 %. IMPRESSION: Pharmacologically induced left ventricular myocardial ischemia suspected along the inferior wall left ventricle
[2017-08-27] MEDS ORDERED: SODIUM CHLORIDE 0.9% 1,000 ML in EMPTY BAG 1 BAG IV ONE (11:46)
[2017-08-27] MEDS ORDERED: ASPIRIN 325 MG TAB PO STA (11:46)
[2017-08-27] MEDS ORDERED: ATORVASTATIN 80 MG TAB PO STA (11:46)
[2017-08-27] MEDS ORDERED: NITROGLYCERIN SL TABS 0.4 MG TAB SUBLINGUAL PRN (11:46)
[2017-08-27] MEDS ORDERED: ALPRAZolam 0.5 MG TAB PO PRN (11:46)
[2017-08-27] MEDS ORDERED: ALPRAZolam 0.25 MG TAB PO PRN (11:46)
--- NOTE | 2017-08-27 12:38 | EST ---
EXERCISE STRESS DATE OF SERVICE: 08/27/2017 AGE: 86 SEX: Male HT: 67" WT: 176 pounds PROTOCOL: Lexiscan Cardiolite STAGE: DURATION OF EXERCISE: HEART RATE REST: 70 BLOOD PRESSURE REST: 100/72 MAXIMUM HEART RATE ACHIEVED: 82 MAXIMUM BLOOD PRESSURE: 118/70 85% MPHR: 114 100% MPHR: 134 METS: INDICATIONS: Chest pain. CLINICAL INFORMATION: History of chest pain. Baseline heart rate is 70 beats per minute. Baseline blood pressure 100/72 mmHg. Baseline 12-lead ECG shows normal sinus rhythm with nonspecific ST-T abnormalities inferiorly with occasional PVCs. Patient received Lexiscan infusion per protocol. There was no ECG evidence for ischemia. The patient continued to have intermittent PVCs through the test. Nuclear portion of stress test will be reported separately. Heart rate and blood pressure response remained normal. MMODL / IJN: [id number] /
[2017-08-27] MEDS ORDERED: MIDAZOLAM 2 MG/2 ML VIAL IV ONE (13:45)
[2017-08-27] MEDS ORDERED: LIDOCAINE 1% INJ 10MG/ML (20 ML MDV) SQ ONE (13:48)
[2017-08-27] MEDS ORDERED: IV FLUID CONTINUATION 1,000 ML IV ONE (13:52)
[2017-08-27] MEDS ORDERED: IOPAMIDOL-370 125ML BTL INJ ONE (14:15)
--- NOTE | 2017-08-27 14:31 | P.PN ---
Subjective Progress Note Date: 08/27/17 This is a pleasant 86-year-old gentleman with a past medical history significant for coronary artery disease and status post coronary artery that was grafting 2 with unknown details at this point and the surgery was performed in 2009 as well as hypertension and dyslipidemia presented to the emergency room complaining of chest discomfort. The patient was in his usual state of health when he does sometimes have chest discomfort in the sternal area and always related that to his surgery in the past until about 3-4 days ago when he started noticing chest discomfort, in the mid of the chest, as a dull/pressure kind of discomfort, without any radiation to the arm or neck or shoulders and with associated symptoms of shortness of breath and feeling nauseated. No noted vomiting and no syncope. No dizziness or lightheadedness. The patient states that the discomfort is mainly after he exerts himself.The EKG showed sinus rhythm was nonspecific changes and flattening of the T wave in the inferolateral leads. Troponins were negative. The patient was seen and examined this morning, advised to undergo stress testing, a Lexiscan stress test was performed which revealed pharmacologically induced left ventricular myocardial ischemia along the inferior wall of the left ventricle. Because of the abnormality in the stress test, patient was advised to undergo cardiac catheterization, the risks and benefits were explained to him and his in detail. Will be performed today by Dr. Carreon. Objective - Vital Signs Vital signs: Vital Signs Temp 96.9 F L 08/27/17 07:34 Pulse 69 08/27/17 07:34 Resp 18 08/27/17 07:34 BP 102/59 08/27/17 07:34 Pulse Ox 96 08/27/17 07:34 Intake & Output 08/26/17 08/27/17 08/27/17 18:59 06:59 18:59 Intake Total 419.705 295.156 Output Total 800 125 Balance -380.295 -125 295.156 Weight 80.1 kg 79.832 kg Intake: Intake, IV Titration 179.705 295.156 Amount Heparin Sod,Pork in 0.45% 179.705 295.156 NaCl 25,000 unit In 0.45 % NaCl 1 500ml.bag @ 12 UNITS/KG/HR 19.05 mls/hr IV .Q24H [facility] Rx#: [id number] Oral 240 Output: Urine 800 125 Other: Voiding Method Urinal # Voids 1 - Exam General: The patient is awake and alert, in no distress, and does not appear acutely ill. Skin: Skin is warm and dry and no rashes or lesions are noted. Eye: Pupils are equal, round and reactive to light, extra-ocular movements are intact; there is normal conjunctiva bilaterally. Ears, nose, mouth and throat: There are moist mucous membranes and no oral lesions. Neck: The neck is supple, there is no tenderness or JVD. Cardiovascular: There is a regular rate and rhythm. No murmur, rub or gallop is appreciated. Respiratory: Clear to auscultation bilateral, no wheezing no rhonchi no distress respiratory mishra noticed Gastrointestinal: Soft, non-distended, non-tender abdomen without masses or organomegaly noted. There is no rebound or guarding present. Bowel sounds are unremarkable. Back: There is no tenderness to palpation in the midline. There is no obvious deformity. Musculoskeletal: Normal ROM, no tenderness, There is no pedal edema. There is no calf tenderness or swelling. No cords were appreciated. Neurological: CN II-XII intact, Cranial nerves III through XII are intact. There are no obvious motor or sensory deficits. Coordination appears grossly intact. Speech is normal. Psychiatric: Cooperative, appropriate mood & affect, normal judgment. - Labs CBC & Chem 7: 08/26/17 05:47 08/26/17 05:47 Labs: Abnormal Lab Results - Last 24 Hours (Table) 08/26/17 08/26/17 08/27/17 Range/Units 17:08 17:08 00:20 APTT 46.5 H 51.7 H (22.0-30.0) sec Total Creatine Kinase 33 L (55-170) U/L 08/27/17 Range/Units 06:18 APTT 52.9 H (22.0-30.0) sec Total Creatine Kinase (55-170) U/L Assessment and Plan Plan: Assessment and plan #1 chest discomfort, Phyllis scan stress test performed today revealed reversible ischemia along the inferior wall of the left ventricle #2 known history of coronary artery disease with prior bypass surgery #3 hypertension #4 hyperlipidemia Plan Because of the abnormality and stress test, patient was advised to undergo cardiac catheterization, the risks and the benefits were explained to the patient in detail. This performed today by Dr. Carreon. DNP note has been reviewed, I agree with a documented findings and plan of care. Patient was seen and examined.
[2017-08-27] MEDS ORDERED: IOPAMIDOL-370 100ML BTL INJ ONE (14:47)
[2017-08-27] MEDS ORDERED: RX INFO: IV CONTRAST WAS GIVEN 1 EACH MISC MISCELLANE PRN (14:48)
[2017-08-27] MEDS ORDERED: SODIUM CHLORIDE 0.9% 1,000 ML IV SCH (15:00)
--- NOTE | 2017-08-27 17:02 | CE ---
CARDIAC ELECTROPHYSIOLOGY REPORT DATE OF SERVICE: 08/27/2017 PERFORMING PHYSICIAN: Mata Taylor MD PROCEDURES PERFORMED: 1. Selective right and left coronary angiogram. 2. Saphenous vein graft to diagonal angiogram. 3. Left internal mammary artery angiogram. INDICATION: This is a pleasant 86-year-old gentleman with known history of coronary artery disease where he underwent back in 2009 coronary artery bypass grafting where he received NEFF to LAD and SVG to diagonal for critical disease involving the proximal LAD. He presented to the hospital with chest discomfort. He was ruled out for acute coronary event. He underwent a stress test which showed inferior ischemia. Because of that, heart catheterization was recommended. APPROACH: Right common femoral artery. COMPLICATIONS: None. LEVEL OF SEDATION: Moderate. Sedation length of 54 minutes. PROCEDURE DESCRIPTION: After obtaining informed consent, the patient was brought to the cardiac dental laboratory worker. The right common femoral artery was cannulated using micropuncture technique. The micropuncture wire passed easily. Then I placed a 6-Ben[place] sheath in the right common femoral artery. After that I did selective right and left coronary angiogram using JR4 and JL4 catheters. I did SVG to diagonal angiogram using the JR4 catheter. Left internal mammary artery angiogram was performed using the hockey-stick catheter because of the extreme tortuosity in the left subclavian and the takeoff of the left subclavian, consistent with type 3 aortic arch. The procedure was completed without any complication. SELECTIVE CORONARY ANGIOGRAM: 1. The left main is angiographically normal. It bifurcates into left circumflex and left anterior descending artery. 2. The left circumflex is a large-caliber vessel and it is a non-dominant vessel. The left circumflex system is angiographically normal. I would say left main has mild disease only. 3. The LAD. The proximal LAD has critical disease in the proximal portion that appeared to be in the range of 90% to 95%. 4. The RCA appeared to be a large-caliber vessel and is a dominant vessel and has mild disease only. ANGIOGRAM OF CORONARY BYPASSES: 1. The SVG to diagonal is patent and filling the NEFF. 2. The NEFF to LAD is patent as well and seems to be atrophic because of good flow in the [place] LAD itself as well as from the SVG to diagonal, which fills the LAD as well. HEMODYNAMICS: The left ventricular end-diastolic pressure was only 4 mmHg, and no gradient was identified across the aortic valve. CONCLUSION: 1. Mild disease involving the left main coronary artery. 2. Mild disease involving the left circumflex. 3. Critical disease involving the proximal LAD. The LAD is protected by NEFF. 4. Mild disease involving the RCA. 5. Patent SVG to diagonal. 6. Patent NEFF to LAD. POST-PROCEDURE MANAGEMENT: Maximize medical treatment and follow up with the patient. MMODL / IJN: [id number] /
[2017-08-27] MEDS: HYDROcodone/APAP 7.5-325MG 1 EACH TAB PO PRN (20:14)
--- NOTE | 2017-08-27 21:50 | PN ---
PROGRESS NOTE ATTENDING PHYSICIAN: Dr. Joana Hadley. CHIEF COMPLAINT: Re-evaluation. HISTORY OF PRESENT ILLNESS: This is an 86-year-old gentleman who was admitted to the hospital with chest pain. The patient's cardiac enzymes were negative. The patient underwent a stress test today. Lexiscan was positive for inferior wall. The patient in view of this was taken for cardiac catheterization at which is noticed to have patent previous bypass grafts and no evidence of any significant occlusion. REVIEW OF SYSTEMS: NEURO: Denies any headaches, dizziness. PSYCH: Some anxiety. CARDIAC: No chest pain, angina, palpitation. RESPIRATORY: No shortness of breath, cough. GI: No nausea, vomiting, abdominal pain, diarrhea. : No symptoms of dysuria, hematuria. EXTREMITIES: No pain. CONSTITUTIONAL: No fever, chills. PHYSICAL EXAMINATION: Pleasant gentleman in no distress. Vital signs reveal temperature 96.9, pulse 69, respirations 18, blood pressure 102/59, pulse ox 96% on room air. HEENT: Normocephalic. NECK: No JVD. CHEST: Clear to auscultation. CARDIAC: Normal S1, S2 with no gallops. Systolic murmur 2/6 left sternal border. ABDOMEN: Soft. Bowel sounds present. Extremities reveal no edema. Good pulses both upper and lower extremities. Neurologically, awake, alert, oriented x3 with well- coordinated movements. LABORATORY ASSESSMENT: Normal troponins. BNP 170. ASSESSMENT: 1. Chest pain, probably myofascial. 2. Known history of coronary artery disease. 3. Chronic degenerative arthritis. PLAN: The patient at present is stable. Continue present medical regimen. Patient's condition discussed with the patient and spouse this morning prior to any further evaluations this morning. Prognosis remains guarded. As mentioned above, patient did have a cardiac cath today and negative for any significant occlusion. The patient will be discharged home tomorrow. MMODL / IJN: [id number] /
[2017-08-28] MEDS: HYDROcodone/APAP 7.5-325MG 1 EACH TAB PO PRN (01:46)
[2017-08-28] MEDS: KETOROLAC 30 MG/ML 1 ML VIAL IVP SCH (06:24)
[2017-08-28] MEDS: METOPROLOL TARTRATE 25 MG TAB PO SCH (08:48)
[2017-08-28] MEDS: ASPIRIN 325 MG TAB PO SCH (08:48)
[2017-08-28 08:50] VITALS: BP 130/76; PULSE 80; RESP 16; TEMP 97.1
--- NOTE | 2017-08-28 12:08 | P.PN ---
Subjective Progress Note Date: 08/28/17 This is a pleasant 86-year-old gentleman with a past medical history significant for coronary artery disease and status post coronary artery that was grafting 2 with unknown details at this point and the surgery was performed in 2009 as well as hypertension and dyslipidemia presented to the emergency room complaining of chest discomfort. The patient was in his usual state of health when he does sometimes have chest discomfort in the sternal area and always related that to his surgery in the past until about 3-4 days ago when he started noticing chest discomfort, in the mid of the chest, as a dull/pressure kind of discomfort, without any radiation to the arm or neck or shoulders and with associated symptoms of shortness of breath and feeling nauseated. No noted vomiting and no syncope. No dizziness or lightheadedness. The patient states that the discomfort is mainly after he exerts himself.The EKG showed sinus rhythm was nonspecific changes and flattening of the T wave in the inferolateral leads. Troponins were negative. The patient was seen and examined this morning, advised to undergo stress testing, a Lexiscan stress test was performed which revealed pharmacologically induced left ventricular myocardial ischemia along the inferior wall of the left ventricle. Because of the abnormality in the stress test, patient was advised to undergo cardiac catheterization, the risks and benefits were explained to him and his in detail. Will be performed today by Dr. Carreon. 08/28/2017 Patient underwent a cardiac catheterization yesterday at Dr. Carreon, which revealed mild disease involving the left main, mild disease involving the circumflex, critical disease involving the proximal LAD. The LAD is protected by the NEFF. Mild disease involving the RCA and patent SVG to the diuretic. Medical therapy Is advised. Patient was seen and examined this morning, denied any chest pain or difficulty in breathing. He's been up ambulating in the hallway without any difficulty. Objective - Vital Signs Vital signs: Vital Signs Temp 97.1 F L 08/28/17 08:50 Pulse 80 08/28/17 08:50 Resp 16 08/28/17 08:51 BP 130/76 08/28/17 08:50 Pulse Ox 94 L 08/28/17 08:54 Intake & Output 08/27/17 08/28/17 08/28/17 18:59 06:59 18:59 Intake Total 395.156 800 400 Output Total 400 150 Balance -4.844 650 400 Weight 79.832 kg 79.9 kg Intake: IV 100 800 0.9 800 Intake, IV Titration 295.156 Amount Heparin Sod,Pork in 0.45% 295.156 NaCl 25,000 unit In 0.45 % NaCl 1 500ml.bag @ 12 UNITS/KG/HR 19.05 mls/hr IV .Q24H ELISA Rx#: [id number] Oral 0 400 Output: Urine 400 150 Other: Voiding Method Toilet Toilet Urinal Urinal # Voids 1 # Bowel Movements 0 - Exam General: The patient is awake and alert, in no distress, and does not appear acutely ill. Skin: Skin is warm and dry and no rashes or lesions are noted. Eye: Pupils are equal, round and reactive to light, extra-ocular movements are intact; there is normal conjunctiva bilaterally. Ears, nose, mouth and throat: There are moist mucous membranes and no oral lesions. Neck: The neck is supple, there is no tenderness or JVD. Cardiovascular: There is a regular rate and rhythm. No murmur, rub or gallop is appreciated. Respiratory: Clear to auscultation bilateral, no wheezing no rhonchi no distress respiratory mishra noticed Gastrointestinal: Soft, non-distended, non-tender abdomen without masses or organomegaly noted. There is no rebound or guarding present. Bowel sounds are unremarkable. Back: There is no tenderness to palpation in the midline. There is no obvious deformity. Musculoskeletal: Normal ROM, no tenderness, There is no pedal edema. There is no calf tenderness or swelling. No cords were appreciated. Right groin soft, no evidence of any hematoma Neurological: CN II-XII intact, Cranial nerves III through XII are intact. There are no obvious motor or sensory deficits. Coordination appears grossly intact. Speech is normal. Psychiatric: Cooperative, appropriate mood & affect, normal judgment. - Labs CBC & Chem 7: 08/26/17 05:47 08/26/17 05:47 Assessment and Plan Plan: Assessment and plan #1 chest discomfort, Phyllis scan stress test performed today revealed reversible ischemia along the inferior wall of the left ventricle #2 known history of coronary artery disease with prior bypass surgery #3 hypertension #4 hyperlipidemia Plan Patient underwent a cardiac catheterization yesterday, medical therapy advised. From cardiology's perspective, patient may be able to be discharged home today. We will make him a follow-up appointment with Dr. Taylor in the office. DNP note has been reviewed, I agree with a documented findings and plan of care. Patient was seen and examined.
== END 2017-08-28 09:24 | disposition home or self-care (01) | DRG 287 ==
LOC: EC 05:26 → 6SEL 08:29
PROVIDERS: ADMIT Internal Medicine; ATTEND Internal Medicine
PROC: B218YZZ Fluoroscopy of Left Internal Mammary Bypass Graft using Other Contrast (ICD-10-PCS; 2017-08-27)
PROC: B212YZZ Fluoroscopy of Single Coronary Artery Bypass Graft using Other Contrast (ICD-10-PCS; 2017-08-27)
PROC: B211YZZ Fluoroscopy of Multiple Coronary Arteries using Other Contrast (ICD-10-PCS; principal; 2017-08-27 13:30)
DX: I25.10 Atherosclerotic heart disease of native coronary artery without angina pectoris (principal); M41.9 Scoliosis, unspecified; E78.5 Hyperlipidemia, unspecified; E78.00 Pure hypercholesterolemia, unspecified; K21.9 Gastro-esophageal reflux disease without esophagitis; I10 Essential (primary) hypertension; G89.29 Other chronic pain; M47.817 Spondylosis without myelopathy or radiculopathy, lumbosacral region; H91.93 Unspecified hearing loss, bilateral; I83.91 Asymptomatic varicose veins of right lower extremity; Z79.82 Long term (current) use of aspirin; Z79.891 Long term (current) use of opiate analgesic; Z79.899 Other long term (current) drug therapy; Z95.1 Presence of aortocoronary bypass graft; Z96.643 Presence of artificial hip joint, bilateral; Z87.891 Personal history of nicotine dependence; Z90.49 Acquired absence of other specified parts of digestive tract; Z86.79 Personal history of other diseases of the circulatory system; Z85.46 Personal history of malignant neoplasm of prostate; Z98.42 Cataract extraction status, left eye; Z98.41 Cataract extraction status, right eye; Z82.3 Family history of stroke; Z83.3 Family history of diabetes mellitus; Z82.49 Family history of ischemic heart disease and other diseases of the circulatory system
CPT/HCPCS: 36415; 71046; 78452; 80053; 80061; 82550; 82553; 83880; 84484; 85025; 85379; 85610; 85730; 93005; 93017; 93306; 93459; 94760; 96365; 96366; 96375; 96376; 99291

== ENCOUNTER 2018-05-10 22:48 | Inpatient (IN) | payer MEDICARE ==
[2018-05-10 23:57] LABS: Basophils % (A) 0 %; Eosinophils # (A) 0.1 k/uL (0-0.7); Eosinophils % (A) 1 %; HCT 32.2 % (39.0-53.0); HGB 9.9 gm/dL (13.0-17.5); Hypochromasia Moderate; Lymphocytes # (A) 0.6 k/uL (1.0-4.8); Lymphocytes % (A) 5 %; MCH 27.6 pg (25.0-35.0); MCHC 30.7 g/dL (31.0-37.0); MCV 89.9 fL (80.0-100.0); Mean Platelet Volume 8.2; Monocytes # (A) 0.8 k/uL (0-1.0); Monocytes % (A) 7 %; Neutrophils # (A) 11.2 k/uL (1.3-7.7); Neutrophils % (A) 87 %; Platelet Count 311 k/uL (150-450); RBC 3.58 m/uL (4.30-5.90); RDW 14.8 % (11.5-15.5)
[2018-05-11 00:04] LABS: ALT 27 U/L (21-72); AST 23 U/L (17-59); Albumin 3.1 g/dL (3.5-5.0); Alkaline Phosphatase 69 U/L (38-126); Anion Gap 7 mmol/L; Blood Urea Nitrogen 17 mg/dL (9-20); Calcium 8.2 mg/dL (8.4-10.2); Carbon Dioxide 24 mmol/L (22-30); Chloride 98 mmol/L (98-107); Glucose 114 mg/dL (74-99); Potassium 4.4 mmol/L (3.5-5.1); Sodium 129 mmol/L (137-145); Total Bilirubin 1.1 mg/dL (0.2-1.3); Total Protein 6.6 g/dL (6.3-8.2)
[2018-05-11 00:10] LABS: INR 1.2 (<1.2); Partial Thromboplastin Time 26.7 sec (22.0-30.0); Prothrombin Time 12.3 sec (9.0-12.0)
[2018-05-11 00:18] LABS: D-Dimer 2.49 mg/L FEU (<0.60)
--- NOTE | 2018-05-11 01:49 | CT ---
EXAM: CT Angiography Chest With Intravenous Contrast CLINICAL HISTORY: Pain. TECHNIQUE: Axial computed tomographic angiography images of the chest with intravenous contrast using pulmonary embolism protocol. MIP reconstructed images were created and reviewed. Coronal and sagittal reformatted images were created and reviewed. CTDI is 16.17 mGy and DLP is 378.9 mGy-cm. This CT exam was performed using one or more of the following dose reduction techniques: automated exposure control, adjustment of the mA and/or kV according to patient size, and/or use of iterative reconstruction technique. COMPARISON: No relevant prior studies available. FINDINGS: Pulmonary arteries: No evidence of pulmonary embolism. Aorta: Atherosclerotic vascular disease without thoracic aortic aneurysm or dissection. Lungs: Mild interstitial prominence and subtle ground-glass opacities in the lungs. Pleural space: Moderate bilateral pleural effusions with adjacent atelectasis. No pneumothorax. Heart: Mild to moderate cardiomegaly. Moderate pericardial effusion of varying thickness. Mild reflux of contrast from right atrium into IVC and hepatic veins. Bones/joints: No acute fracture. No dislocation. Soft tissues: Unremarkable. Lymph nodes/mediastinum: Postsurgical changes of CABG. No enlarged lymph nodes. Visualized upper abdomen: Hepatic cysts. Cholecystectomy. IMPRESSION: 1. No evidence of pulmonary embolism. 2. Atherosclerotic vascular disease without thoracic aortic aneurysm or dissection. 3. Mild to moderate cardiomegaly with reflux of contrast from right atrium into IVC and hepatic veins suggesting right heart dysfunction. Moderate pericardial effusion of varying thickness. 4. Mild interstitial prominence and subtle ground-glass opacities in the lungs which may represent atelectasis and/or congestive change although other etiologies are not excluded. Correlate clinically. 5. Moderate bilateral pleural effusions with adjacent atelectasis. <MYCVCSECTION> Critical Value Communications 05/11/18 01:59 Verify Receipt Verified receipt with KATIE Delarosa for Dr. Serna on 05/11 01:59 (-04:00)
--- NOTE | 2018-05-11 02:09 | ED ---
Weakness HPI - General Chief complaint: Weakness Stated complaint: weakness Time Seen by Provider: 05/10/18 23:37 Source: patient, EMS Mode of arrival: EMS Limitations: no limitations - History of Present Illness Initial comments: 87-year-old male presenting with progressively worsening shortness of breath and generalized weakness. The patient's states that she is concerned that he needs an iron infusion because of a nosebleed he had 2 weeks prior. She states he has had recent echoes and EKGs that have been evaluated by his primary care physician and she does not feel these are the cause of his symptoms. The patient is denying any chest pain but admits to progressively worsening dyspnea on exertion to the point that he is now only able to walk a few feet before he becomes so short of breath he gets lightheaded. Denies prior use of oxygen or congestive heart failure. He denies any abdominal pain, fevers chills. Admits to orthopnea. Denies any history of DVT/PE, active cancer, recent surgeries. Denies any influenza-like symptoms. - Related Data Home Medications Medication Instructions Recorded Confirmed Metoprolol Tartrate 25 mg PO BID 12/17/13 08/26/17 Multivitamins, Thera [Multivitamin 1 tab PO DAILY 12/17/13 08/26/17 (formulary)] Simvastatin [Zocor] 40 mg PO HS 12/17/13 08/26/17 Hydrocodone/Acetaminophen [[place] 0.5 tab PO Q6H 10/11/16 08/26/17 7.5-325] Aspirin 325 mg PO DAILY 05/12/17 08/26/17 Glucosam/Alan-Msm1/C/[place]/Bosw 1 tab PO DAILY 05/26/17 08/26/17 [Glucosamine-Chondroitin Tablet] Ibuprofen 600 mg PO TID PRN 05/26/17 08/26/17 Ubidecarenone [Co Q-10] 100 mg PO DAILY 08/26/17 08/26/17 Allergies Allergy/AdvReac Type Severity Reaction Status Date / Time No Known Allergies Allergy Verified 05/10/18 22:57 Review of Systems ROS Statement: Those systems with pertinent positive or pertinent negative responses have been documented in the HPI. Review of Systems Constitutional: Denies fever, chills Eyes: Denies change in vision, Denies pain Ears, nose, mouth, throat: Denies headaches, Denies sore throat Cardiovascular: Denies chest pain. Denies palpitations Respiratory: Positive shortness of breath, Denies cough Gastrointestinal: Denies abdominal pain. Denies nausea, vomiting, diarrhea. Genitourinary: Denies hematuria, Denies infections Musculoskeletal: Denies pain, Denies swelling Integumentary: Denies rash Neurological: Denies headache, focal weakness, focal numbness Psychiatric: Denies anxiety, Denies depression Hematologic/Lymphatic: Denies easy bleeding or bruising ROS Other: All systems not noted in ROS Statement are negative. 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 History of Any Multi-Drug Resistant Organisms: None Reported Past Surgical History: Coronary Bypass/CABG, Heart Catheterization, Hernia Repair, Joint Replacement, Prostate Surgery Additional Past Surgical History / Comment(s): CABG 2 vessel (2009), coby hip replacements, prostatectomy, bilateral inguinal hernia repairs with R side done twice, colonoscopy with benign polypectomy, bilateral cataract removals. Past Anesthesia/Blood Transfusion Reactions: No Reported Reaction Additional Past Anesthesia/Blood Transfusion Reaction / Comment(s): unknown hx of blood tranfusion Past Psychological History: No Psychological Hx Reported Smoking Status: Former smoker Past Alcohol Use History: None Reported Past Drug Use History: None Reported - Past Family History Father Family Medical History: CVA/TIA Additional Family Medical History / Comment(s): Father of a cerebral hemorrhage at age 53yrs. Mother Family Medical History: CVA/TIA Additional Family Medical History / Comment(s): Mother at age 89 yrs from a CVA. General Exam - General Exam Comments Initial Comments: General: Awake, alert, No acute Distress HENT: Normocephalic. Atraumatic Eyes: PERRL. EOMI. No scleral icterus. No injected conjunctiva Neck: Full ROM Chest/Lungs: Distal lung sounds at the bases with rales. No wheezing or rhonchi. Cardiac: Regular rate, rhythm. No murmurs or rubs. No lower extremity edema. Abdomen/GI: Soft, nontender, nondistended. No rebound, guarding, or rigidity. Musculoskeletal: Full ROM Skin: Warm, dry, intact Neurologic: A/Ox3, no weakness, no sensory deficit, no abnormal gait, no coordination deficit Limitations: no limitations Course Vital Signs 05/10/18 05/10/18 05/11/18 22:54 23:23 00:07 Temperature 99.8 F H Pulse Rate 83 81 Respiratory 20 20 18 Rate Blood Pressure 128/81 113/81 O2 Sat by Pulse 95 96 Oximetry 05/11/18 05/11/18 02:15 03:30 Temperature 98.1 F Pulse Rate 85 74 Respiratory 16 18 Rate Blood Pressure 124/82 121/68 O2 Sat by Pulse 97 98 Oximetry EKG Findings - EKG Comments: EKG Findings:: EKG shows sinus rhythm with a first-degree AV block at a rate of 81 bpm. OH interval 238 ms, QRS duration 80 ms, QT/QTc 384/446 ms Medical Decision Making - Medical Decision Making 87-year-old male presenting with shortness of breath. On initial exam the patient is awake, alert, no acute distress. VSS. Patient's initially was very resistant to any plan I was offering. I have concern that the patient's shortness of breath is due to another etiology other than iron deficiency. His most recent echo was in August. This echo showed an EF of 55-60% with moderate concentric left ventricular hypertrophy. The patient had a negative Lexiscan stress test at that time. He continued to have chest pains and underwent a cardiac cath. This showed critical disease involving the proximal LAD but no intervention was done as this was protected by NEFF. The patient has never been worked up for a PE. Discussed with the patient's my concern for other etiologies. She was argumentative and demanded that I speak with Dr. Hadley. Dr. Hadley was not on-call and I informed her that Dr. Coronel would be the physician I spoke with if I was to call anybody. I informed the patient that regardless of his opinion I am recommending the patient undergo CT angiogram. Also recommending he undergoes further laboratory testing, as she initially did not want anything more than a CBC done and admission for an iron infusion. Patient and his were agreeable. Wells score was 1.5. He had an elevated d-dimer. Patient's troponin was negative. He was found to have hyponatremia at a level of 129. Patient CT PE showed a mild to moderate cardiomegaly with reflux of contrast from right atrium and IVC suggesting right heart dysfunction. She also found to have moderate pericardial effusion of varying thickness. There is interstitial prominence consistent with congestive changes as well as moderate bilateral pleural effusions with adjacent atelectasis. Vital signs are stable and he is not showing evidence of tamponade at this time. He requires admission for diuresis and evaluation by cardiology. I updated the patient and his were agreeable to the plan. I spoke with Dr. Coronel who is agreeable to admission under Dr. Hadley and agrees to IV diuresis. Cardiology on consult. - Lab Data Result diagrams: 05/10/18 23:35 05/10/18 23:35 Lab Results 05/10/18 05/10/18 05/10/18 Range/Units 23:35 23:35 23:35 WBC 13.0 H (3.8-10.6) k/uL RBC 3.58 L (4.30-5.90) m/uL Hgb 9.9 L (13.0-17.5) gm/dL Hct 32.2 L (39.0-53.0) % MCV 89.9 (80.0-100.0) fL MCH 27.6 (25.0-35.0) pg MCHC 30.7 L (31.0-37.0) g/dL RDW 14.8 (11.5-15.5) % Plt Count 311 (150-450) k/uL Neutrophils % 87 % Lymphocytes % 5 % Monocytes % 7 % Eosinophils % 1 % Basophils % 0 % Neutrophils # 11.2 H (1.3-7.7) k/uL Lymphocytes # 0.6 L (1.0-4.8) k/uL Monocytes # 0.8 (0-1.0) k/uL Eosinophils # 0.1 (0-0.7) k/uL Basophils # 0.0 (0-0.2) k/uL Hypochromasia Moderate PT 12.3 H (9.0-12.0) sec INR 1.2 H (<1.2) APTT 26.7 (22.0-30.0) sec D-Dimer 2.49 H (<0.60) mg/L FEU Sodium 129 L (137-145) mmol/L Potassium 4.4 (3.5-5.1) mmol/L Chloride 98 (98-107) mmol/L Carbon Dioxide 24 (22-30) mmol/L Anion Gap 7 mmol/L BUN 17 (9-20) mg/dL Creatinine 0.67 (0.66-1.25) mg/dL Est GFR (CKD-EPI)AfAm >90 (>60 ml/min/1.73 sqM) Est GFR (CKD-EPI)NonAf 87 (>60 ml/min/1.73 sqM) Glucose 114 H (74-99) mg/dL Osmolality (280-301) mosm/kg Calcium 8.2 L (8.4-10.2) mg/dL Total Bilirubin 1.1 (0.2-1.3) mg/dL AST 23 (17-59) U/L ALT 27 (21-72) U/L Alkaline Phosphatase 69 (38-126) U/L Troponin I (0.000-0.034) ng/mL NT-Pro-B Natriuret Pep pg/mL Total Protein 6.6 (6.3-8.2) g/dL Albumin 3.1 L (3.5-5.0) g/dL Urine Color Urine Appearance (Clear) Urine pH (5.0-8.0) Ur Specific [place] (1.001-1.035) Urine Protein (Negative) Urine Glucose (UA) (Negative) Urine Ketones (Negative) Urine Blood (Negative) Urine Nitrite (Negative) Urine Bilirubin (Negative) Urine Urobilinogen (<2.0) mg/dL Ur Leukocyte Esterase (Negative) Influenza Type A RNA (Not Detectd) Influenza Type B (PCR) (Not Detectd) Blood Type Blood Type Recheck Antibody Screen Spec Expiration Date 05/10/18 05/10/18 05/10/18 Range/Units 23:35 23:35 23:35 WBC (3.8-10.6) k/uL RBC (4.30-5.90) m/uL Hgb (13.0-17.5) gm/dL Hct (39.0-53.0) % MCV (80.0-100.0) fL MCH (25.0-35.0) pg MCHC (31.0-37.0) g/dL RDW (11.5-15.5) % Plt Count (150-450) k/uL Neutrophils % % Lymphocytes % % Monocytes % % Eosinophils % % Basophils % % Neutrophils # (1.3-7.7) k/uL Lymphocytes # (1.0-4.8) k/uL Monocytes # (0-1.0) k/uL Eosinophils # (0-0.7) k/uL Basophils # (0-0.2) k/uL Hypochromasia PT (9.0-12.0) sec INR (<1.2) APTT (22.0-30.0) sec D-Dimer (<0.60) mg/L FEU Sodium (137-145) mmol/L Potassium (3.5-5.1) mmol/L Chloride (98-107) mmol/L Carbon Dioxide (22-30) mmol/L Anion Gap mmol/L BUN (9-20) mg/dL Creatinine (0.66-1.25) mg/dL Est GFR (CKD-EPI)AfAm (>60 ml/min/1.73 sqM) Est GFR (CKD-EPI)NonAf (>60 ml/min/1.73 sqM) Glucose (74-99) mg/dL Osmolality (280-301) mosm/kg Calcium (8.4-10.2) mg/dL Total Bilirubin (0.2-1.3) mg/dL AST (17-59) U/L ALT (21-72) U/L Alkaline Phosphatase (38-126) U/L Troponin I <0.012 (0.000-0.034) ng/mL NT-Pro-B Natriuret Pep 1020 pg/mL Total Protein (6.3-8.2) g/dL Albumin (3.5-5.0) g/dL Urine Color Urine Appearance (Clear) Urine pH (5.0-8.0) Ur Specific [place] (1.001-1.035) Urine Protein (Negative) Urine Glucose (UA) (Negative) Urine Ketones (Negative) Urine Blood (Negative) Urine Nitrite (Negative) Urine Bilirubin (Negative) Urine Urobilinogen (<2.0) mg/dL Ur Leukocyte Esterase (Negative) Influenza Type A RNA (Not Detectd) Influenza Type B (PCR) (Not Detectd) Blood Type O Positive Blood Type Recheck No Antibody Screen NEGATIVE Spec Expiration Date 05/13/2018233405/10/18 05/11/18 05/11/18 Range/Units 23:35 00:05 02:01 WBC (3.8-10.6) k/uL RBC (4.30-5.90) m/uL Hgb (13.0-17.5) gm/dL Hct (39.0-53.0) % MCV (80.0-100.0) fL MCH (25.0-35.0) pg MCHC (31.0-37.0) g/dL RDW (11.5-15.5) % Plt Count (150-450) k/uL Neutrophils % % Lymphocytes % % Monocytes % % Eosinophils % % Basophils % % Neutrophils # (1.3-7.7) k/uL Lymphocytes # (1.0-4.8) k/uL Monocytes # (0-1.0) k/uL Eosinophils # (0-0.7) k/uL Basophils # (0-0.2) k/uL Hypochromasia PT (9.0-12.0) sec INR (<1.2) APTT (22.0-30.0) sec D-Dimer (<0.60) mg/L FEU Sodium (137-145) mmol/L Potassium (3.5-5.1) mmol/L Chloride (98-107) mmol/L Carbon Dioxide (22-30) mmol/L Anion Gap mmol/L BUN (9-20) mg/dL Creatinine (0.66-1.25) mg/dL Est GFR (CKD-EPI)AfAm (>60 ml/min/1.73 sqM) Est GFR (CKD-EPI)NonAf (>60 ml/min/1.73 sqM) Glucose (74-99) mg/dL Osmolality 270 L (280-301) mosm/kg Calcium (8.4-10.2) mg/dL Total Bilirubin (0.2-1.3) mg/dL AST (17-59) U/L ALT (21-72) U/L Alkaline Phosphatase (38-126) U/L Troponin I (0.000-0.034) ng/mL NT-Pro-B Natriuret Pep pg/mL Total Protein (6.3-8.2) g/dL Albumin (3.5-5.0) g/dL Urine Color Yellow Urine Appearance Clear (Clear) Urine pH 6.0 (5.0-8.0) Ur Specific [place] 1.005 (1.001-1.035) Urine Protein Negative (Negative) Urine Glucose (UA) Negative (Negative) Urine Ketones Negative (Negative) Urine Blood Negative (Negative) Urine Nitrite Negative (Negative) Urine Bilirubin Negative (Negative) Urine Urobilinogen <2.0 (<2.0) mg/dL Ur Leukocyte Esterase Negative (Negative) Influenza Type A RNA Not Detected (Not Detectd) Influenza Type B (PCR) Not Detected (Not Detectd) Blood Type Blood Type Recheck Antibody Screen Spec Expiration Date Disposition Clinical Impression: Pericardial effusion without cardiac tamponade, Pleural effusion due to CHF (congestive heart failure), Right heart failure, Hyponatremia, Dyspnea on exertion, Generalized weakness Disposition: ADMITTED IP TO THIS [facility] Decision to Admit Reason: Admit from EC Decision Date: 05/11/18 Decision Time: 03:02
[2018-05-11] MEDS ORDERED: FUROSEMIDE 10 MG/ML 2 ML VIAL IV ONE ×2 (03:01→20:51)
[2018-05-11 03:51] LABS: Color,Urine Yellow
[2018-05-11 03:52] LABS: Appearance,Urine Clear (Clear); Glucose,Urine (UA) Negative (Negative); Protein,Urine Negative (Negative); Specific Gravity,Urine 1.005 (1.001-1.035)
[2018-05-11 03:53] LABS: Bilirubin,Urine Negative (Negative); Blood,Urine Negative (Negative); Ketones,Urine Negative (Negative); Leukocyte Esterase,Urine Negative (Negative); Nitrite,Urine Negative (Negative); Urobilinogen,Urine <2.0 mg/dL (<2.0)
--- NOTE | 2018-05-11 08:38 | XR ---
EXAMINATION TYPE: XR chest 2V DATE OF EXAM: 05/11/2018 COMPARISON: 08/26/2017 TECHNIQUE: PA and lateral views submitted. HISTORY: Shortness of breath FINDINGS: Bilateral infiltrate and pleural effusion. Degenerative change of the spine and arthropathy of the sh oulder. Cardiomegaly with postsurgical changes. No pneumothorax. Biapical pleural thickening. IMPRESSION: 1. Cardiomegaly with bilateral infiltrate and small effusion.
[2018-05-11] MEDS ORDERED: ASPIRIN 325 MG TAB PO SCH (09:00)
[2018-05-11] MEDS ORDERED: METOPROLOL TARTRATE 25 MG TAB PO SCH (09:00)
[2018-05-11] MEDS: SODIUM FERRIC GLUCONAT-SUCROSE 125 MG in SODIUM CHLORIDE 0.9% 100 ML IVPB SCH (10:09)
[2018-05-11] MEDS: METOPROLOL TARTRATE 50 MG TAB PO SCH ×2 (10:21→19:56)
[2018-05-11] MEDS: PANTOPRAZOLE 40 MG TABLET PO SCH (10:22)
[2018-05-11] MEDS: HEPARIN SODIUM,PORCINE 5,000 UNIT/ML 1 ML VIAL SQ SCH ×3 (10:26→23:06)
[2018-05-11] MEDS: ASPIRIN 325 MG TAB PO SCH (10:38)
[2018-05-11] MEDS: LEVOTHYROXINE 25 MCG TAB PO SCH (10:38)
--- NOTE | 2018-05-11 14:58 | P.CRDCN ---
History of Present Illness Consult date: 05/11/18 Requesting physician: Juwan Hadley Consult reason: shortness of breath Chief complaint: weakness, shortness of breath History of present illness: this is a pleasant 87-year-old gentleman with past medical history significant for coronary artery disease and prior bypass surgery 2, hypert ension, hyperlipidemia, GERD, iron deficiency anemia, who follows with Dr. Carreon in the office. He presented to the hospital with symptoms of weakness and tiredness with associated shortness of breath.CTA of the chest was performed on arrival here which did not reveal any evidence for pulmonary embolism. No evidence of thoracic aortic aneurysm or dissection. Mild to moderate cardiomegaly,moderate pericardial effusion, moderate bilateral pleural effusionswith adjacent atelectasis.chest x-ray shows cardiomegaly with bilateral infiltrate and small effusion.EKG shows a normal sinus rhythm with first-degree AV block and nonspecific ST-T wave changes.blood pressure 130/80 with a heart rate in the 80s, 97% on 2 L of oxygen.White blood cell count 13.0, hemoglobin 9.9, platelet count 311. D-dimer 2.4, sodium 129, potassium 4.4, BUN 17 and creatinine 0.6.BNP 1020. Troponin 0.012.patient is currently receiving iron transfusion, he is also on aspirin 81 mg daily, Lipitor 20 mg daily, Lasix 20 IV twice a day, Synthroid, metoprolol 50 twice a day and Protonix. We will obtain an echocardiogram with Doppler study.Obtain ultrasound of the bilateral chest to assess effusions. 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 History of Any Multi-Drug Resistant Organisms: None Reported Past Surgical History: Coronary Bypass/CABG, Heart Catheterization, Hernia Repair, Joint Replacement, Prostate Surgery Additional Past Surgical History / Comment(s): CABG 2 vessel (2009), coby hip replacements, prostatectomy, bilateral inguinal hernia repairs with R side done twice, colonoscopy with benign polypectomy, bilateral cataract removals. Past Anesthesia/Blood Transfusion Reactions: No Reported Reaction Additional Past Anesthesia/Blood Transfusion Reaction / Comment(s): unknown hx of blood tranfusion Smoking Status: Former smoker - Past Family History Father Family Medical History: CVA/TIA Additional Family Medical History / Comment(s): Father of a cerebral hemorrhage at age 53yrs. Mother Family Medical History: CVA/TIA Additional Family Medical History / Comment(s): Mother at age 89 yrs from a CVA. Medications and Allergies Home Medications Medication Instructions Recorded Confirmed Type Metoprolol Tartrate 25 mg PO BID 12/17/13 05/11/18 History Multivitamins, Thera [Multivitamin 1 tab PO DAILY 12/17/13 05/11/18 History (formulary)] Simvastatin [Zocor] 40 mg PO HS 12/17/13 05/11/18 History Hydrocodone/Acetaminophen [[place] 0.5 tab PO Q8H 10/11/16 05/11/18 History 7.5-325] Ibuprofen 300 mg PO TID PRN 05/26/17 05/11/18 History Docusate [Colace] 100 mg PO DAILY 05/11/18 05/11/18 History Ferrous Sulfate [Feosol] 325 mg PO DAILY 05/11/18 05/11/18 History Omeprazole [PriLOSEC] 20 mg PO AC-BRKFST 05/11/18 05/11/18 History Allergies Allergy/AdvReac Type Severity Reaction Status Date / Time No Known Allergies Allergy Verified 05/11/18 07:54 Physical Exam Vitals: Vital Signs Temp Pulse Resp BP Pulse Ox 05/11/18 11:33 98.1 F 86 23 131/83 97 05/11/18 11:00 86 23 131/83 05/11/18 10:40 93 131/83 97 05/11/18 10:30 89 23 137/82 05/11/18 10:00 130/80 05/11/18 09:30 83 27 H 130/80 05/11/18 09:00 82 22 130/80 05/11/18 08:30 89 25 H 130/80 05/11/18 08:00 89 27 H 130/80 92 L 05/11/18 07:30 75 27 H 130/80 93 L 05/11/18 07:14 97 20 130/80 94 L 05/11/18 07:00 82 31 H 92 L 05/11/18 06:30 76 27 H 91 L 05/11/18 06:00 76 24 92 L 05/11/18 05:30 73 25 H 93 L 05/11/18 05:00 80 23 92 L 05/11/18 04:30 85 32 H 90 L 05/11/18 04:29 90 22 131/79 96 05/11/18 04:27 81 32 H 90 L 05/11/18 03:30 98.1 F 74 18 121/68 98 05/11/18 02:15 85 16 124/82 97 05/11/18 00:07 81 18 113/81 96 05/10/18 23:23 20 05/10/18 22:54 99.8 F H 83 20 128/81 95 Intake and Output 05/10/18 05/11/18 05/11/18 22:59 06:59 14:59 Intake Total 360 Output Total 700 Balance -700 360 Intake: Oral 360 Output: Urine 700 Other: Weight 79.379 kg PHYSICAL EXAMINATION: GENERAL:87-year-old gentleman in no acute distress at the time of my examination HEENT: Head is atraumatic, normocephalic. Pupils equal, round. Sclera anicteric. Conjunctiva are clear. Mucous membranes of the mouth are moist. Neck is supple. There is no elevated jugular venous pressure.no carotid bruit is heard. HEART EXAMINATION: [Heart S1, S2 systolic murmur is heard.] CHEST EXAMINATION:lungs reveal diminished air entry to bilateral bases. ABDOMEN: [ Soft, nontender. Bowel sounds are heard. No organomegaly noted]. EXTREMITIES:[ 2+ peripheral pulses with no evidence of peripheral edema and no calf tenderness noted]. NEUROLOGIC [patient is awake, alert and oriented 3.] . Results 05/10/18 23:35 05/10/18 23:35 Cardiac Enzymes 05/10/18 05/10/18 Range/Units 23:35 23:35 AST 23 (17-59) U/L Troponin I <0.012 (0.000-0.034) ng/mL Coagulation 05/10/18 Range/Units 23:35 PT 12.3 H (9.0-12.0) sec APTT 26.7 (22.0-30.0) sec CBC 05/10/18 Range/Units 23:35 WBC 13.0 H (3.8-10.6) k/uL RBC 3.58 L (4.30-5.90) m/uL Hgb 9.9 L (13.0-17.5) gm/dL Hct 32.2 L (39.0-53.0) % Plt Count 311 (150-450) k/uL Comprehensive Metabolic Panel 05/10/18 Range/Units 23:35 Sodium 129 L (137-145) mmol/L Potassium 4.4 (3.5-5.1) mmol/L Chloride 98 (98-107) mmol/L Carbon Dioxide 24 (22-30) mmol/L BUN 17 (9-20) mg/dL Creatinine 0.67 (0.66-1.25) mg/dL Glucose 114 H (74-99) mg/dL Calcium 8.2 L (8.4-10.2) mg/dL AST 23 (17-59) U/L ALT 27 (21-72) U/L Alkaline Phosphatase 69 (38-126) U/L Total Protein 6.6 (6.3-8.2) g/dL Albumin 3.1 L (3.5-5.0) g/dL Current Medications Generic Name Dose Route Start Last Admin Trade Name Freq PRN Reason Stop Dose Admin Hydrocodone Bitart/Acetaminophen 0.5 each 05/11/18 03:06 [place] 7.5-325 PO Q6H PRN Pain Aspirin 81 mg 05/11/18 09:00 05/11/18 10:38 Aspirin PO 81 mg DAILY ELISA Administration Atorvastatin Calcium 20 mg 05/11/18 21:00 Lipitor PO HS ELISA Furosemide 20 mg 05/12/18 09:00 Lasix IV Q12H ELISA Heparin Sodium (Porcine) 5,000 unit 05/11/18 08:00 05/11/18 10:26 Heparin SQ 5,000 unit Q8HR ELISA Administration Ferric Sodium Gluconate 125 mg 110 mls @ 100 mls/hr 05/11/18 09:00 05/11/18 10:09 / Sodium Chloride IVPB 100 mls/hr DAILY ELISA Administration Levothyroxine Sodium 25 mcg 05/11/18 08:00 05/11/18 10:38 Synthroid PO 25 mcg DAILY@0630 ELISA Administration Metoprolol Tartrate 50 mg 05/11/18 09:00 05/11/18 10:21 Lopressor PO 50 mg BID ELISA Administration Pantoprazole Sodium 40 mg 05/11/18 07:45 05/11/18 10:22 Protonix PO 40 mg AC-BRKFST ELISA Administration Intake and Output 05/10/18 05/11/18 05/11/18 22:59 06:59 14:59 Intake Total 360 Output Total 700 Balance -700 360 Intake: Oral 360 Output: Urine 700 Other: Weight 79.379 kg 05/10/18 23:35 05/10/18 23:35 EKG Interpretations (text) EKG shows normal sinus rhythm with first-degree AV block and nonspecific ST-T wave changes Assessment and Plan Plan: assessment and plan #1 symptoms of weakness with associated shortness of breath, mild congestive cardiac failure, diastolic, acute on chronic. LV function on most recent echo performed in August 2017 revealed an ejection fraction of 55-60%. Weakness and shortness of breath could also be secondary to anemia, patient is receiving an iron transfusion. He is also noted to have bilateral pleural effusions on chest x-ray. #2 known history of coronary artery disease with prior bypass surgery #3 hypertension #4 hyperlipidemia #5 GERD #6 iron deficiency anemia #7 possible pericardial effusion Plan We will continue current dose of IV Lasix. Obtain echocardiogram with Doppler study to evaluate the pericardial effusion and LV function. We'll also obtain an ultrasound of the chest to assess the bilateral pleural effusions.Further recommendations to follow. DNP note has been reviewed, I agree with a documented findings and plan of care. Patient was seen and examined.
[2018-05-11] MEDS: HYDROcodone/APAP 7.5-325MG 1 EACH TAB PO PRN ×2 (15:01→19:58)
[2018-05-11 15:09] VITALS: BMI 27.3
[2018-05-11] MEDS ORDERED: IBUPROFEN 600 MG TAB PO PRN (16:32)
[2018-05-11] MEDS: ATORVASTATIN 20 MG TAB PO SCH (19:56)
--- NOTE | 2018-05-11 23:32 | HP ---
HISTORY AND PHYSICAL ATTENDING PHYSICIAN: Dr. Joana Hadley. CHIEF COMPLAINT: Shortness of breath. HISTORY OF PRESENT ILLNESS: This is an 87-year-old gentleman who presents to the emergency room via ambulance because he was having difficulty breathing. The patient denied any chest pain or palpitations with that. He was seen in the outpatient with similar symptoms. Workup which suggested that he had some iron deficiency anemia. He was recommended to start iron tablets and was scheduled for iron infusions here in the hospital. The patient also had hypothyroidism. However, due to the patient's symptoms of palpitation, he was recommended to initially treat the anemia and then subsequently we will start the patient on hypothyroidism medications. The patient does have a history of coronary artery disease. Back last August, the patient had a cardiac catheterization which revealed he had patent previous bypasses. The patient a stress test which suggested possible obstruction changes. The patient after that had a cardiac cath which did not reveal any significant changes since his bypass 11 years ago. The patient also admits to some anxiety and depression. The patient otherwise denies any other major symptoms of cough, congestion. No reflux symptoms. PAST MEDICAL HISTORY: Significant for coronary artery disease with previous CABG back in 2009. History of bilateral hip arthritis status post bilateral hip arthroplasty with good results. He also has degenerative arthritis of the lumbosacral spine with some associated scoliosis. Previous history of carcinoma of the prostate diagnosed and treated back in 1995 with no evidence of recurrence. History of acute cholecystitis and pancreatitis following which he had a cholecystectomy. No history of any lung disease, liver disease, kidney disease, ulcers, TB, hepatitis. No history of any rheumatic fever, myocardial infarction, CVA. He did have pericarditis following the CABG. PAST SURGICAL HISTORY: Significant for hernia repair, prostatectomy, CABG, bilateral cataract surgery, bilateral total hip arthroplasty, and cholecystectomy. PERSONAL HISTORY: Nonsmoker. Quit smoking about 27 years ago. Used to smoke a pack per day for about 13 years. Alcohol rare. VACCINATION HISTORY: Up to date on the flu vaccine. He has had a Pneumovax in 2017. MEDICATIONS: Medications at present include metoprolol 50 mg b.i.d., simvastatin 20 mg daily, aspirin 81 mg daily, Protonix 20 mg daily, [place] 06/324 half tablet t.i.d. The patient takes Prilosec 20 mg daily, takes Motrin 300 mg p.r.n. t.i.d., ferrous sulfate to start at 1 daily, Colace 100 mg daily. SOCIAL HISTORY: Patient , lives with spouse. Retired entry level staff accountant. FAMILY MEDICAL HISTORY: He has 1 son who has a history of valvular heart disease, post surgery, doing well, is 58 years of age. He has 2 daughters in adequate health. The patient's father at age 54 with history of cerebral hemorrhage. Mother at the age of 90. She had CVA at age 45. She was a diabetic. Patient had 1 sister who at age of 88. She had a history of diabetes mellitus and hypertension. REVIEW OF SYSTEMS: NEURO: Denies any headaches, dizziness. No double vision or blurred vision. No symptoms of TIA, syncope or seizures. PSYCH: No anxiety, mild depression symptoms. CARDIAC: No chest pain, angina, palpitations. Present complaint of some orthopnea. RESPIRATORY: Denies shortness of breath. No cough or hemoptysis. GI: No nausea, vomiting, abdominal pain, diarrhea, constipation, hematochezia, melena. : No symptoms of dysuria, hematuria, urgency, frequency. EXTREMITIES: Denies pain, edema. CONSTITUTIONAL: No fever or chills. HEMATOLOGICAL: No anemia or bleeding disorder. ENDOCRINE: No history of diabetes mellitus or hypothyroidism. MUSCULOSKELETAL: Chronic back pain. CONSTITUTIONAL: No fever, chills. No weight gain or weight loss. SKIN: No rashes. ENT: Decreased hearing. EYES: Adequate vision. PHYSICAL EXAMINATION: Pleasant gentleman at present in no distress. Vital signs reveal his temperature recorded earlier to my evaluation was 98.1, pulse 97, respirations 20, blood pressure 130/80, pulse ox 94% on 2 L. HEENT: Normocephalic. NECK: No JVD. Chest examination is clear to auscultation and percussion. CARDIAC: Normal S1, S2 with no gallop. Systolic murmur 2/6 left sternal border. ABDOMEN: Soft. No palpable masses. Bowel sounds normal. No organomegaly. No abdominal bruits. No hepatic tenderness. Extremities reveal no edema. Good pulses both upper lower extremities. Neurologically awake, alert, oriented x3 with well-coordinated movements. LABORATORY ASSESSMENT: White count 61884, hemoglobin 9.9, platelets 111. D-dimer 2.49, sodium 129, BUN 17 and creatinine 0.67, glucose 114. Troponin negative. BNP is 1020. Albumin 3.1. Urinalysis unremarkable with specific gravity 1.005. Influenza negative. Chest x-ray suggests bilateral pleural effusion, cardiomegaly and postop changes. No pneumothorax. Some bilateral apical thickening. CT scan of the chest reveals no evidence of any pulmonary embolus. Does have atherosclerotic changes without any thoracic aortic aneurysm or dissection. Mild to moderate cardiomegaly with reflux of contrast from right atrium into the inferior vena cava and hepatic veins suggesting right heart dysfunction or moderate pericardial effusion or ( ) thickness, mild interstitial prominence and subtle ground-glass opacities in the lungs which may reflect atelectasis and congestive changes. Moderate bilateral effusions in the chest and atelectasis. ASSESSMENT: 1. Congestive cardiac failure secondary to diastolic dysfunction. 2. Known coronary artery disease. 3. Anemia, iron deficiency. 4. Hypothyroidism. 5. Essential hypertension. PLAN: Continue present medical regimen. Patient's condition discussed with the patient. Prognosis is guarded. Continue with diuresis. MMODL / IJN: [id number] /
[2018-05-12 07:01] LABS: Albumin 2.9 g/dL (3.5-5.0); Calcium 8.2 mg/dL (8.4-10.2); Potassium 4.3 mmol/L (3.5-5.1); Total Bilirubin 0.9 mg/dL (0.2-1.3); Total Protein 6.4 g/dL (6.3-8.2)
[2018-05-12] MEDS: LEVOTHYROXINE 25 MCG TAB PO SCH (07:09)
[2018-05-12] MEDS: PANTOPRAZOLE 40 MG TABLET PO SCH (07:09)
[2018-05-12] MEDS: ASPIRIN 325 MG TAB PO SCH (09:00)
[2018-05-12] MEDS ORDERED: FUROSEMIDE 10 MG/ML 2 ML VIAL IV SCH (09:00)
[2018-05-12] MEDS: HYDROcodone/APAP 7.5-325MG 1 EACH TAB PO PRN ×3 (09:02→21:53)
[2018-05-12] MEDS: HEPARIN SODIUM,PORCINE 5,000 UNIT/ML 1 ML VIAL SQ SCH ×3 (09:03→23:26)
[2018-05-12] MEDS: SODIUM FERRIC GLUCONAT-SUCROSE 125 MG in SODIUM CHLORIDE 0.9% 100 ML IVPB SCH (09:04)
--- NOTE | 2018-05-12 09:29 | ECHOF ---
Referral Reason:Heart Failure MEASUREMENTS -------- HEIGHT: 170.2 cm WEIGHT: 79.4 kg BP: 131/79 RVIDd: 3.1 cm (< 3.3) IVSd: 1.1 cm (0.6 - 1.1) LVIDd: 4.8 cm (3.9 - 5.3) LVPWd: 1.2 cm (0.6 - 1.1) IVSs: 1.2 cm LVIDs: 3.0 cm LVPWs: 1.4 cm LAESV Index (A-L): 30.71 ml/m Ao Diam: 4.0 cm (2.0 - 3.7) AV Cusp: 1.7 cm (1.5 - 2.6) LA Diam: 3.6 cm (2.7 - 3.8) MV E Abraham: 0.88 m/s MV DecT: 235 ms MV A Abraham: 0.90 m/s MV E/A Ratio: 0.99 AV maxP.37 mmHg AV meanP.80 mmHg AR PHT: 501 ms RAP: 5.00 mmHg RVSP: 34.65 mmHg FINDINGS -------- Sinus rhythm. This was a technically adequate study. The left ventricular size is normal. There is borderline concentric left ventricular hypertrophy. Overall left ventricular systolic function is normal with, an EF between 55 - 60 %. The right ventricle is normal in size and function. LA is midly dilated 29-33ml/m2. RA appears enlarged. Aortic valve is trileaflet and is mildly thickened. There is mild aortic regurgitation. There is no evidence of aortic stenosis. The mitral valve leaflets are mildly thickened. Mild mitral regurgitation is present. Moderate tricuspid regurgitation present. There is borderline pulmonary hypertension. The right v entricular systolic pressure, as measured by Doppler, is 34.65mmHg. Trace/mild (physiologic) pulmonic regurgitation. The aortic root size is normal. Normal inferior vena cava with normal inspiratory collapse consistent with estimated right atrial pre ssure of 5 mmHg. There is a moderate, generalized pericardial effusion present. CONCLUSIONS -------- 1. Sinus rhythm. 2. This was a technically adequate study. 3. The left ventricular size is normal. 4. There is borderline concentric left ventricular hypertrophy. 5. Overall left ventricular systolic function is normal with, an EF between 55 - 60 %. 6. LA is midly dilated 29-33ml/m2. 7. RA appears enlarged. 8. Aortic valve is trileaflet and is mildly thickened. 9. There is mild aortic regurgitation. 10. The mitral valve leaflets are mildly thickened. 11. Mild mitral regurgitation is present. 12. Moderate tricuspid regurgitation present. 13. There is borderline pulmonary hypertension. 14. The right ventricular systolic pressure, as measured by Doppler, is 34.65mmHg. 15. Trace/mild (physiologic) pulmonic regurgitation. 16. The aortic root size is normal. 17. There is a moderate, generalized pericardial effusion present. [place] PAVER: Manuel Jung RDCS
[2018-05-12] MEDS: METOPROLOL TARTRATE 50 MG TAB PO SCH ×2 (10:41→21:52)
[2018-05-12] MEDS: INDOMETHACIN 25 MG CAP PO SCH ×2 (13:03→15:21)
[2018-05-12] MEDS: COLCHICINE 0.6 MG EACH PO SCH ×2 (13:03→21:55)
[2018-05-12] MEDS: ASPIRIN 81 MG PO SCH (13:11)
--- NOTE | 2018-05-12 15:08 | P.PN ---
Subjective Progress Note Date: 05/12/18 This is a pleasant 87-year-old gentleman with past medical history significant for coronary artery disease and prior bypass surgery 2, hypertension, hyperlipidemia, GERD, iron deficiency anemia, who follows with Dr. Carreon in the office. He presented to the hospital with symptoms of weakness and tiredness with associated shortness of breath.CTA of the chest was performed on arrival here which did not reveal any evidence for pulmonary embolism. No evidence of thoracic aortic aneurysm or dissection. Mild to moderate cardiomegaly,moderate pericardial effusion, moderate bilateral pleural ef fusionswith adjacent atelectasis.chest x-ray shows cardiomegaly with bilateral infiltrate and small effusion.EKG shows a normal sinus rhythm with first-degree AV block and nonspecific ST-T wave changes.blood pressure 130/80 with a heart rate in the 80s, 97% on 2 L of oxygen.White blood cell count 13.0, hemoglobin 9.9, platelet count 311. D-dimer 2.4, sodium 129, potassium 4.4, BUN 17 and creatinine 0.6.BNP 1020. Troponin 0.012.patient is currently receiving iron transfusion, he is also on aspirin 81 mg daily, Lipitor 20 mg daily, Lasix 20 IV twice a day, Synthroid, metoprolol 50 twice a day and Protonix. We will obtain an echocardiogram with Doppler study.Obtain ultrasound of the bilateral chest to assess effusions. 05/12/2018 Patient was seen and examined this morning, up ambulating in the hallway without any difficulty. Overall he does state that his breathing is improving. An e chocardiogram with Doppler study was performed today which revealed an ejection fraction of 55-60%. Moderate tricuspid regurgitation.moderate generalized pericardial effusion is present. We will start the patient on Colchicine and Indocin today, obtain a sed rate and C-reactive protein.Discontinue IV Lasix and change management analyst to oral diuretics today. Objective - Vital Signs Vital signs: Vital Signs Temp 98.7 F 05/12/18 04:00 Pulse 94 05/12/18 08:00 Resp 20 05/12/18 08:00 BP 121/67 05/12/18 08:00 Pulse Ox 94 L 05/12/18 08:00 Intake & Output 05/11/18 05/12/18 05/12/18 18:59 06:59 18:59 Intake Total 1000 200 240 Output Total 1800 0 Balance 1000 -1600 240 Weight 79.379 kg 81 kg Intake: Oral 1000 200 240 Output: Urine 1800 0 Other: Voiding Method Toilet Urinal - Exam PHYSICAL EXAMINATION: GENERAL:87-year-old gentleman in no acute distress at the time of my examination HEENT: Head is atraumatic, normocephalic. Pupils equal, round. Sclera anicteric. Conjunctiva are clear. Mucous membranes of the mouth are moist. Neck is supple. There is no elevated jugular venous pressure.no carotid bruit is heard. HEART EXAMINATION: [Heart S1, S2 systolic murmur is heard.] CHEST EXAMINATION:lungs reveal diminished air entry to bilateral bases. ABDOMEN: [ Soft, nontender. Bowel sounds are heard. No organomegaly noted]. EXTREMITIES:[ 2+ peripheral pulses with no evidence of peripheral edema and no calf tenderness noted]. NEUROLOGIC [patient is awake, alert and oriented 3.] - Labs CBC & Chem 7: 05/10/18 23:35 05/12/18 06:17 Labs: Abnormal Lab Results - Last 24 Hours (Table) 05/12/18 05/12/18 05/12/18 Range/Units 06:17 06:17 06:17 ESR 93 H (0-15) mm/hr Sodium 134 L (137-145) mmol/L Calcium 8.2 L (8.4-10.2) mg/dL C-Reactive Protein 171.6 H (<10.0) mg/L Albumin 2.9 L (3.5-5.0) g/dL Assessment and Plan Plan: assessment and plan #1 symptoms of weakness with associated shortness of breath, mild congestive cardiac failure, diastolic, acute on chronic. LV function on most recent echo performed in August 2017 revealed an ejection fraction of 55-60%. Weakness and shortness of breath could also be secondary to anemia, patient is receiving an iron transfusion. He is also noted to have bilateral pleural effusions on chest x-ray. #2 known history of coronary artery disease with prior bypass surgery #3 hypertension #4 hyperlipidemia #5 GERD #6 iron deficiency anemia #7 evidence of pericardial effusion on echocardiogram, moderate generalized Plan From cardiology's perspective, we'll discontinue the IV Lasix today and start the patient on oral diuretics. We will also start the patient on colchicine along with Indocin, obtain CRP and sed rate today. DNP note has been reviewed, I agree with a documented findings and plan of care. Patient was seen and examined.
[2018-05-12] MEDS: FUROSEMIDE 20 MG TAB PO SCH (15:30)
[2018-05-12] MEDS ORDERED: predniSONE 20 MG TAB PO SCH (21:00)
[2018-05-12] MEDS: ATORVASTATIN 20 MG TAB PO SCH (21:53)
--- NOTE | 2018-05-12 22:44 | PN ---
PROGRESS NOTE CHIEF COMPLAINT: Re-evaluation. HISTORY OF PRESENT ILLNESS: This 87-year-old gentleman was admitted to the hospital because of shortness of breath, especially when lying down. The patient has had a previous history of CABG. Coronary arteries have been pretty much stable, with no progression of his disease since the bypass stent 11 years ago. The patient's CT scan had shown some pericardial effusion. The patient had an echocardiogram done which revealed stable ejection fraction; no evidence of any pericardial tamponade. However, there was moderate pericardial fluid. The patient did have a sedimentation rate which is elevated at 93. In view of this, Cardiology started the patient on colchicine and Indocin. With the use of diuretics and at his age, I would suggest that we switch Indocin to steroids 20 mg b.i.d. The patient meanwhile is feeling somewhat better. REVIEW OF SYSTEMS: NEURO: Denies any headaches, dizziness. PSYCH: No anxiety. CARDIAC: Denies chest pain, angina, palpitations. RESPIRATORY: No shortness of breath, cough. GI: No nausea, vomiting, abdominal pain, diarrhea. : No symptoms of dysuria or hematuria. EXTREMITIES: No pain, edema. CONSTITUTIONAL: No fever, chills. PHYSICAL EXAMINATION: Pleasant gentleman in no distress. Vital signs reveal temperature 98.7, pulse 94, respirations 20, blood pressure 121/67, pulse ox 94% on room air. HEENT: Normocephalic. NECK: No JVD. CHEST: Clear to auscultation and percussion. CARDIAC: Normal S1, S2 with no gallops. Systolic murmur 2/6, left sternal border. ABDOMEN: Soft. Bowel sounds present and active. Extremities reveal no edema. Neurologically awake, alert, oriented with well-coordinated movements. LABORATORY ASSESSMENT: Sed rate 93, sodium 134. Rest of the electrolytes are normal. Normal hepatic function. C-reactive protein is 171.6. Albumin is 2.9. ASSESSMENT: 1. Pericardial effusion with possible pericarditis not ruled out. 2. Congestive cardiac failure secondary to diastolic dysfunction, improved. 3. Stable coronary artery disease. 4. Anemia. PLAN: The patient is stable. Continue present medical regimen. Patient's condition was discussed with the patient. Prognosis guarded. The patient started on colchicine and will add the steroids and see how the patient does. Prognosis remains guarded. The patient had pericarditis about 6 weeks or so after he had his CABG. 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 The patient is not in that window for Fabio syndrome now. The possibility of viral etiology is not ruled out. MMODL / IJN: [id number] /
[2018-05-13] MEDS: HYDROcodone/APAP 7.5-325MG 1 EACH TAB PO PRN ×3 (06:36→22:24)
[2018-05-13] MEDS: LEVOTHYROXINE 25 MCG TAB PO SCH (06:36)
[2018-05-13] MEDS: PANTOPRAZOLE 40 MG TABLET PO SCH (06:36)
[2018-05-13 07:09] LABS: Anion Gap 10 mmol/L; Blood Urea Nitrogen 15 mg/dL (9-20); Calcium 8.7 mg/dL (8.4-10.2); Carbon Dioxide 26 mmol/L (22-30); Chloride 101 mmol/L (98-107); Glucose 118 mg/dL (74-99); Potassium 4.5 mmol/L (3.5-5.1); Sodium 137 mmol/L (137-145)
[2018-05-13] MEDS: ASPIRIN 81 MG PO SCH (08:53)
[2018-05-13] MEDS: FUROSEMIDE 20 MG TAB PO SCH ×2 (08:53→15:59)
[2018-05-13] MEDS: HEPARIN SODIUM,PORCINE 5,000 UNIT/ML 1 ML VIAL SQ SCH ×3 (08:53→23:40)
[2018-05-13] MEDS: SODIUM FERRIC GLUCONAT-SUCROSE 125 MG in SODIUM CHLORIDE 0.9% 100 ML IVPB SCH (08:53)
[2018-05-13] MEDS: METOPROLOL TARTRATE 50 MG TAB PO SCH ×2 (08:53→21:11)
[2018-05-13] MEDS: INDOMETHACIN 25 MG CAP PO SCH ×3 (08:53→21:13)
[2018-05-13] MEDS: COLCHICINE 0.6 MG EACH PO SCH ×2 (08:54→21:13)
[2018-05-13 10:14] VITALS: RESP 18
--- NOTE | 2018-05-13 12:03 | P.PN ---
Subjective Progress Note Date: 05/13/18 This is a pleasant 87-year-old gentleman with past medical history significant for coronary artery disease and prior bypass surgery 2, hypertension, hyperlipidemia, GERD, iron deficiency anemia, who follows with Dr. Carreon in the office. He presented to the hospital with symptoms of weakness and tiredness with associated shortness of breath.CTA of the chest was performed on arrival here which did not reveal any evidence for pulmonary embolism. No evidence of thoracic aortic aneurysm or dissection. Mild to moderate cardiomegaly,moderate pericardial effusion, moderate bilateral pleural ef fusionswith adjacent atelectasis.chest x-ray shows cardiomegaly with bilateral infiltrate and small effusion.EKG shows a normal sinus rhythm with first-degree AV block and nonspecific ST-T wave changes.blood pressure 130/80 with a heart rate in the 80s, 97% on 2 L of oxygen.White blood cell count 13.0, hemoglobin 9.9, platelet count 311. D-dimer 2.4, sodium 129, potassium 4.4, BUN 17 and creatinine 0.6.BNP 1020. Troponin 0.012.patient is currently receiving iron transfusion, he is also on aspirin 81 mg daily, Lipitor 20 mg daily, Lasix 20 IV twice a day, Synthroid, metoprolol 50 twice a day and Protonix. We will obtain an echocardiogram with Doppler study.Obtain ultrasound of the bilateral chest to assess effusions. 05/12/2018 Patient was seen and examined this morning, up ambulating in the hallway without any difficulty. Overall he does state that his breathing is improving. An e chocardiogram with Doppler study was performed today which revealed an ejection fraction of 55-60%. Moderate tricuspid regurgitation.moderate generalized pericardial effusion is present. We will start the patient on Colchicine and Indocin today, obtain a sed rate and C-reactive protein.Discontinue IV Lasix and change control specialist to oral diuretics today. O3 2018 Patient seen and examined this morning, he's been up ambulating in the hallway as tolerated. Blood pressure 126/80 with a heart rate in the 70s, 98% on 2 L of oxygen. Sodium this morning 137, potassium 4.5, BUN 15 and creatinine 0.7. ESR elevated at 93.C reactive protein 171. Objective - Vital Signs Vital signs: Vital Signs Temp 98.5 F 05/13/18 11:46 Pulse 73 05/13/18 11:46 Resp 18 05/13/18 11:46 BP 126/83 05/13/18 11:46 Pulse Ox 98 05/13/18 11:46 Intake & Output 05/12/18 05/13/18 05/13/18 18:59 06:59 18:59 Intake Total 720 130 Output Total 600 600 Balance 120 130 -600 Weight 82.6 kg Intake: IV 10 0.9 10 Oral 720 120 Output: Urine 600 600 Other: Voiding Method Toilet Toilet Urinal Urinal - Exam PHYSICAL EXAMINATION: GENERAL:87-year-old gentleman in no acute distress at the time of my examination HEENT: Head is atraumatic, normocephalic. Pupils equal, round. Sclera anicteric. Conjunctiva are clear. Mucous membranes of the mouth are moist. Neck is supple. There is no elevated jugular venous pressure.no carotid bruit is heard. HEART EXAMINATION: [Heart S1, S2 systolic murmur is heard.] CHEST EXAMINATION:lungs reveal diminished air entry to bilateral bases. ABDOMEN: [ Soft, nontender. Bowel sounds are heard. No organomegaly noted]. EXTREMITIES:[ 2+ peripheral pulses with no evidence of peripheral edema and no calf tenderness noted]. NEUROLOGIC [patient is awake, alert and oriented 3.] - Labs CBC & Chem 7: 05/10/18 23:35 05/13/18 06:25 Labs: Abnormal Lab Results - Last 24 Hours (Table) 05/12/18 05/13/18 Range/Units 06:17 06:25 ESR 93 H (0-15) mm/hr Glucose 118 H (74-99) mg/dL Assessment and Plan Plan: assessment and plan #1 symptoms of weakness with associated shortness of breath, mild congestive cardiac failure, diastolic, acute on chronic. LV function on most recent echo performed in August 2017 revealed an ejection fraction of 55-60%. Weakness and sh ortness of breath could also be secondary to anemia, patient is receiving an iron transfusion. He is also noted to have bilateral pleural effusions on chest x-ray. #2 known history of coronary artery disease with prior bypass surgery #3 hypertension #4 hyperlipidemia #5 GERD #6 iron deficiency anemia #7 evidence of pericardial effusion on echocardiogram, moderate generalized Plan From cardiology's perspective, we recommend at this time to continue the patient on Indocin and colchicine. Follow-up appointment with Dr. Carreon in one week repeat echocardiogram with Doppler study in one week. DNP note has been reviewed, I agree with a documented findings and plan of care. Patient was seen and examined.
--- NOTE | 2018-05-13 17:08 | P.PN ---
Subjective Progress Note Date: 05/13/18 Principal diagnosis: Dyspnea This 87-year-old gentleman was admitted to the hospital with dyspnea and orthopnea. Patient's BNP was about 1000. Suspicion of congestive cardiac fa ilure with small pleural effusions. The patient was started on diuresis. An echocardiogram done reveals moderate pericardial effusion. Patient did not have any symptoms suggestive of pericarditis. He could have an upper pericarditis earlier about 10 days ago when he had some chest pain. Had seen him at the time his occasional PACs. No acute changes to suggest any pericarditis or ischemia. The patient has had a previous pericarditis post CABG. He was started by cardiology on colchicine and Indocin. My feeling was that the Indocin might be harsh on this 87-year-old gentleman and thus was switched to prednisone 20 mg twice a day last night. Upon discussion with Dr. Hebrer Blackmon today he said he has been literature review and previously noted that people have been treated with prednisone often have increased incidence of recurrence of pericarditis/effusion. In view of this was switched him back to Indocin. He is on GI prophylaxis he has been up and walking .Plan o possible d/c tommorow. Objective - Vital Signs Vital signs: Vital Signs Temp 96.4 F L 05/13/18 15:57 Pulse 78 05/13/18 15:57 Resp 18 05/13/18 15:57 BP 134/79 05/13/18 15:57 Pulse Ox 94 L 05/13/18 15:57 Intake & Output 05/12/18 05/13/18 05/13/18 18:59 06:59 18:59 Intake Total 720 130 Output Total 600 600 Balance 120 130 -600 Weight 82.6 kg Intake: IV 10 0.9 10 Oral 720 120 Output: Urine 600 600 Other: Voiding Method Toilet Toilet Urinal Urinal # Bowel Movements 3 - Labs CBC & Chem 7: 05/10/18 23:35 05/13/18 06:25 Labs: Abnormal Lab Results - Last 24 Hours (Table) 05/13/18 Range/Units 06:25 Glucose 118 H (74-99) mg/dL
--- NOTE | 2018-05-13 21:00 | PN ---
PROGRESS NOTE DATE OF SERVICE: 05/13/2018 CHIEF COMPLAINT: Reevaluation. HISTORY OF PRESENT ILLNESS: This 87-year-old gentleman was admitted to the hospital with dyspnea and orthopnea. The patient's BNP was about 1000; suspicion of congestive cardiac failure with small pleural effusion. The patient was started on diuresis. An echocardiogram done revealed moderate pericardial effusion, adequate left ventricular function. The patient's left ventricular function has not changed since August of this last year. However, there was moderate pericardial effusion. He does not have any symptoms suggestive of pericarditis at present. However, about 10 days ago he had some chest pain. An EKG done at that time had occasional PACs but no acute changes to suggest any pericarditis or ischemia. The patient had an episode of previous pericarditis post CABG about 10 years ago. The patient was started on colchicine and Indocin by Cardiology. My feeling was that the Indocin might be harsh on this 87-year-old gentleman and thus he was switched to prednisone 20 mg twice a day . Upon discussion with Dr. Luis Blackmon, the digital business analyst, this morning, he said he had done a significant literature review and was of the opinion that patients who are treated with steroids often have recurrence of pericarditis/effusion. In view of this, he was switched back to Indocin. We will keep a close eye on his renal function. He is on GI prophylaxis. The patient has been up and walking. Plan for possible discharge tomorrow. REVIEW OF SYSTEMS: NEURO: Denies any headaches, dizziness. No double vision or blurred vision. PSYCH: No anxiety, depression. CARDIAC: No chest pain, angina, palpitations. RESPIRATORY: Denies shortness of breath, cough, hemoptysis. GI: No nausea, vomiting, abdominal pain, diarrhea. : No symptoms of dysuria or hematuria. EXTREMITIES: No pain, edema. CONSTITUTIONAL: No fever, chills. PHYSICAL EXAMINATION: Pleasant gentleman in no distress. Vital signs reveal temperature 97.6, pulse 77, respirations 19, blood pressure 123/74, pulse ox 97% on 2 L. HEENT: Normocephalic. NECK: No JVD. CHEST: Clear to auscultation. Mild percussion, left base. CARDIAC: Distant heart sounds S1, S2 with no gallops or rubs appreciated. No murmurs appreciated. ABDOMEN: Soft. No palpable masses. Bowel sounds normal. No organomegaly. No abdominal bruits. Extremities reveal no edema. Good pulses, both upper and lower extremities. Neurologically awake, alert, oriented with well-coordinated movements. LABORATORY ASSESSMENT: Electrolytes, BUN and creatinine which are normal. ASSESSMENT: 1. Pericarditis with pericardial effusion, etiology unclear. Possibility of viral etiology. 2. Hyponatremia, resolved. 3. Anemia of iron deficiency. No evidence of bleeding. 4. Known coronary artery disease, stable. PLAN: Continue present medical regimen with colchicine and Indocin. Will follow patient's renal status. The Indocin will probably be aboard for 5-7 days. Will continue colchicine for a longer period. Patient's condition discussed with the patient. Prognosis guarded. He was questioning why the patient is no longer on Lasix twice a day and I did review with him the reasoning. MMODL / IJN: [id number] /
[2018-05-13] MEDS: ATORVASTATIN 20 MG TAB PO SCH (21:11)
[2018-05-14] MEDS: LEVOTHYROXINE 25 MCG TAB PO SCH (06:54)
[2018-05-14] MEDS: PANTOPRAZOLE 40 MG TABLET PO SCH (06:54)
[2018-05-14] MEDS: HYDROcodone/APAP 7.5-325MG 1 EACH TAB PO PRN (07:08)
[2018-05-14 07:37] LABS: Anion Gap 6 mmol/L; Blood Urea Nitrogen 15 mg/dL (9-20); Calcium 8.3 mg/dL (8.4-10.2); Carbon Dioxide 29 mmol/L (22-30); Chloride 102 mmol/L (98-107); Glucose 92 mg/dL (74-99); Potassium 4.7 mmol/L (3.5-5.1); Sodium 137 mmol/L (137-145)
[2018-05-14] MEDS: SODIUM FERRIC GLUCONAT-SUCROSE 125 MG in SODIUM CHLORIDE 0.9% 100 ML IVPB SCH (08:43)
[2018-05-14] MEDS: INDOMETHACIN 25 MG CAP PO SCH (08:43)
[2018-05-14] MEDS: ASPIRIN 81 MG PO SCH (08:43)
[2018-05-14] MEDS: COLCHICINE 0.6 MG EACH PO SCH (08:43)
[2018-05-14] MEDS: METOPROLOL TARTRATE 50 MG TAB PO SCH (08:43)
[2018-05-14] MEDS: FUROSEMIDE 20 MG TAB PO SCH (08:43)
[2018-05-14] MEDS: HEPARIN SODIUM,PORCINE 5,000 UNIT/ML 1 ML VIAL SQ SCH (08:43)
[2018-05-14 09:20] VITALS: BP 147/86; PULSE 90; TEMP 96.6
--- NOTE | 2018-05-14 12:21 | P.PN ---
Subjective Progress Note Date: 05/14/18 This is a pleasant 87-year-old gentleman with past medical history significant for coronary artery disease and prior bypass surgery 2, hypertension, hyperlipidemia, GERD, iron deficiency anemia, who follows with Dr. Carreon in the office. He presented to the hospital with symptoms of weakness and tiredness with associated shortness of breath.CTA of the chest was performed on arrival here which did not reveal any evidence for pulmonary embolism. No evidence of thoracic aortic aneurysm or dissection. Mild to moderate cardiomegaly,moderate pericardial effusion, moderate bilateral pleural ef fusionswith adjacent atelectasis.chest x-ray shows cardiomegaly with bilateral infiltrate and small effusion.EKG shows a normal sinus rhythm with first-degree AV block and nonspecific ST-T wave changes.blood pressure 130/80 with a heart rate in the 80s, 97% on 2 L of oxygen.White blood cell count 13.0, hemoglobin 9.9, platelet count 311. D-dimer 2.4, sodium 129, potassium 4.4, BUN 17 and creatinine 0.6.BNP 1020. Troponin 0.012.patient is currently receiving iron transfusion, he is also on aspirin 81 mg daily, Lipitor 20 mg daily, Lasix 20 IV twice a day, Synthroid, metoprolol 50 twice a day and Protonix. We will obtain an echocardiogram with Doppler study.Obtain ultrasound of the bilateral chest to assess effusions. 05/12/2018 Patient was seen and examined this morning, up ambulating in the hallway without any difficulty. Overall he does state that his breathing is improving. An e chocardiogram with Doppler study was performed today which revealed an ejection fraction of 55-60%. Moderate tricuspid regurgitation.moderate generalized pericardial effusion is present. We will start the patient on Colchicine and Indocin today, obtain a sed rate and C-reactive protein.Discontinue IV Lasix and supervisor policy change clerks to oral diuretics today. O3 2018 Patient seen and examined this morning, he's been up ambulating in the hallway as tolerated. Blood pressure 126/80 with a heart rate in the 70s, 98% on 2 L of oxygen. Sodium this morning 137, potassium 4.5, BUN 15 and creatinine 0.7. ESR elevated at 93.C reactive protein 171. 05/14/2018 Patient seen and examined this morning, he's been up ambulating in the [place] most of the morning. Overall feeling well. He does state this morning he feels mildly confused. He is alert to person place and time. I pressure 146/86 with a heart rate in the 90s, 94% on room air. Sodium 137, potassium 4.7, BUN 15 and creatinine 0.8. Objective - Vital Signs Vital signs: Vital Signs Temp 96.6 F L 05/14/18 08:00 Pulse 90 05/14/18 08:00 Resp 18 05/14/18 08:00 BP 147/86 05/14/18 08:00 Pulse Ox 94 L 05/14/18 08:00 Intake & Output 05/13/18 05/14/18 05/14/18 18:59 06:59 18:59 Intake Total 10 Output Total 600 800 Balance -600 10 -800 Weight 81.3 kg Intake: IV 10 0.9 10 Output: Urine 600 800 Other: Voiding Method Toilet Toilet Toilet Urinal Urinal Urinal # Voids 4 # Bowel Movements 3 - Exam PHYSICAL EXAMINATION: GENERAL:87-year-old gentleman in no acute distress at the time of my examination HEENT: Head is atraumatic, normocephalic. Pupils equal, round. Sclera anicteric. Conjunctiva are clear. Mucous membranes of the mouth are moist. Neck is supple. There is no elevated jugular venous pressure.no carotid bruit is heard. HEART EXAMINATION: [Heart S1, S2 systolic murmur is heard.] CHEST EXAMINATION:lungs reveal diminished air entry to bilateral bases. ABDOMEN: [ Soft, nontender. Bowel sounds are heard. No organomegaly noted]. EXTREMITIES:[ 2+ peripheral pulses with no evidence of peripheral edema and no calf tenderness noted]. NEUROLOGIC [patient is awake, alert and oriented 3.] - Labs CBC & Chem 7: 05/10/18 23:35 05/14/18 06:47 Labs: Abnormal Lab Results - Last 24 Hours (Table) 05/14/18 Range/Units 06:47 Calcium 8.3 L (8.4-10.2) mg/dL Assessment and Plan Plan: assessment and plan #1 symptoms of weakness with associated shortness of breath, mild congestive cardiac failure, diastolic, acute on chronic. LV function on most recent echo performed in August 2017 revealed an ejection fraction of 55-60%. Weakness and shortness of breath could also be secondary to anemia, patient is receiving an iron transfusion. He is also noted to have bilateral pleural effusions on chest x-ray. #2 known history of coronary artery disease with prior bypass surgery #3 hypertension #4 hyperlipidemia #5 GERD #6 iron deficiency anemia #7 evidence of pericardial effusion on echocardiogram, moderate generalized Plan From cardiology's perspective, we recommend at this time to continue the patient on Indocin and colchicine. Follow-up appointment with Dr. Carreon in one week repeat echocardiogram with Doppler study in one week. DNP note has been reviewed, I agree with a documented findings and plan of care. Patient was seen and examined.
--- NOTE | 2018-05-16 13:30 | P.DS ---
Providers Date of admission: 05/11/18 03:02 Attending physician: Juwan Hadley Consults: 05/11/18 03:02 Consult Physician Stat Consulting Provider: Mata Taylor Consult Reason/Comments: pericardial effusion Do you want consulting provider notified?: Yes, Notify in am Primary care physician: Juwan Hadley [facility] Course: this 87-year-old gentleman was admitted to the hospital with complaints of shortness of breath. Has had some Palpitations. Had associated symptoms sense of doom. Evaluation in the emergency room. ER physicians felt the patient had congestive cardiac failure as a chest x-ray suggested small pleural effusions. He was started on IV Lasix. The patient to my evaluation is mildly tachycardic lungs are fairly clear. A CAT scan of the chest reveals no evidence of pulmonary embolism but does suggestion of some pericardial effusion. An echocardiogram revealed moderate pericardial effusion more than the one he had on previous echoes. Patient back when he had a cardiac bypass surgery 11 years ago had developed about 6 weeks later her pericarditis and pericardial effusion which had been treated. Patient has had no symptoms relating to then. A cardiac catheterization done in August 2017revealed still patent bypasses and no progression of his coronary atherosclerosis.the patient in view of this was placed on colchicine and Indocin. The patient's renal status being monitored. Patient symptoms had improved with diuresis and colchicine and Indocin. He was ambulatory without much dyspnea with usual activity. He had no orthopnea. No chest pains. No palpitations. In view of about patient is discharged home. His Indocin will be continued for 5 more days and continue colchicine for the whole month. We will follow his renal status on the outpatient. Did discuss with patient potential diarrhea with colchicine. If he does develop that he'll cut his colchicine down to once a day. Adequate hydration recommended. Patient will have a repeat echo done in 1 month. She does follow with cardiology on the outpatient.hematocrit and an onset of pericarditis about a week prior to admission when he has some symptoms of chest discomfort briefly an EKG at that time did not show any changes.patient was given iron infusions due to iron deficiency anemia my final diagnoses 1. Acute pericarditis and pericardial effusion 2. Stable coronary artery disease 3. Mild congestive cardiac failure secondary diastolic dysfunction 4. Anemia secondary to iron deficiency due to chronic blood loss 5. 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 Patient Condition at Discharge: Stable Plan - Discharge Summary Discharge Rx Participant: No New Discharge Prescriptions: New Aspirin 81 mg PO DAILY chew Colchicine [Colcrys] 0.6 mg PO BID #60 each Indomethacin [Indocin] 25 mg PO TID #18 cap Furosemide [Lasix] 20 mg PO DAILY #30 tab Metoprolol Tartrate [Lopressor] 50 mg PO BID tab Levothyroxine Sodium [Synthroid] 25 mcg PO DAILY@0630 #30 tab Continue Simvastatin [Zocor] 40 mg PO HS Hydrocodone/Acetaminophen [[place] 7.5-325] 0.5 tab PO Q8H Omeprazole [PriLOSEC] 20 mg PO AC-BRKFST Ferrous Sulfate [Iron (65 MG Elemental)] 325 mg PO DAILY Docusate [Colace] 100 mg PO DAILY Discontinued Metoprolol Tartrate 25 mg PO BID Ibuprofen 300 mg PO TID PRN PRN Reason: Pain No Action Multivitamins, Thera [Multivitamin (formulary)] 1 tab PO DAILY Discharge Medication List Multivitamins, Thera [Multivitamin (formulary)] 1 tab PO DAILY 12/17/13 [History] Simvastatin [Zocor] 40 mg PO HS 12/17/13 [History] Hydrocodone/Acetaminophen [[place] 7.5-325] 0.5 tab PO Q8H 10/11/16 [History] Docusate [Colace] 100 mg PO DAILY 05/11/18 [History] Ferrous Sulfate [Iron (65 MG Elemental)] 325 mg PO DAILY 05/11/18 [History] Omeprazole [PriLOSEC] 20 mg PO AC-BRKFST 05/11/18 [History] Aspirin 81 mg PO DAILY chew 05/14/18 [Rx] Colchicine [Colcrys] 0.6 mg PO BID #60 each 05/14/18 [Rx] Furosemide [Lasix] 20 mg PO DAILY #30 tab 05/14/18 [Rx] Indomethacin [Indocin] 25 mg PO TID #18 cap 05/14/18 [Rx] Levothyroxine Sodium [Synthroid] 25 mcg PO DAILY@0630 #30 tab 05/14/18 [Rx] Metoprolol Tartrate [Lopressor] 50 mg PO BID tab 05/14/18 [Rx] Follow up Appointment(s)/Referral(s): Juwan Hadley MD [Primary Care Provider] - 05/18/18 9:00 am Mata Taylor MD [STAFF PHYSICIAN] - 06/09/18 2:45 pm (FridayJune 05, 7:30 AM appointment to repeat echocardiogram, then follow up with Dr. Taylor after. ) Patient Instructions/Handouts: Heart Failure (DC), Chest Pain (DC), Pericardial Effusion (DC) Activity/Diet/Wound Care/Special Instructions: The earliest available repeat ECHO is in three weeks. Cardiology aware. Discharge Disposition: HOME SELF-CARE
== END 2018-05-14 11:16 | disposition home or self-care (01) | DRG 292 ==
LOC: EC 22:48 → 3SCARD 05-11 03:02
PROVIDERS: ADMIT Internal Medicine; ATTEND Internal Medicine
DX: I11.0 Hypertensive heart disease with heart failure (principal); E87.1 Hypo-osmolality and hyponatremia; I31.3 Pericardial effusion (noninflammatory); J98.11 Atelectasis; I50.33 Acute on chronic diastolic (congestive) heart failure; D50.9 Iron deficiency anemia, unspecified; E03.9 Hypothyroidism, unspecified; E78.5 Hyperlipidemia, unspecified; F32.9 Major depressive disorder, single episode, unspecified; F41.9 Anxiety disorder, unspecified; H91.93 Unspecified hearing loss, bilateral; I07.1 Rheumatic tricuspid insufficiency; I25.10 Atherosclerotic heart disease of native coronary artery without angina pectoris; I44.0 Atrioventricular block, first degree; I48.91 Unspecified atrial fibrillation; K21.9 Gastro-esophageal reflux disease without esophagitis; Z96.643 Presence of artificial hip joint, bilateral; M41.9 Scoliosis, unspecified; R79.1 Abnormal coagulation profile; Z79.82 Long term (current) use of aspirin; Z79.899 Other long term (current) drug therapy; Z82.3 Family history of stroke; Z82.49 Family history of ischemic heart disease and other diseases of the circulatory system; Z83.3 Family history of diabetes mellitus; Z85.46 Personal history of malignant neoplasm of prostate; Z87.891 Personal history of nicotine dependence; Z95.1 Presence of aortocoronary bypass graft; M19.90 Unspecified osteoarthritis, unspecified site; Z98.42 Cataract extraction status, left eye; Z98.41 Cataract extraction status, right eye; M51.37 Other intervertebral disc degeneration, lumbosacral region; G89.29 Other chronic pain; Z90.49 Acquired absence of other specified parts of digestive tract
CPT/HCPCS: 36415; 71046; 71275; 80048; 80053; 81003; 83880; 83930; 84300; 84484; 85025; 85379; 85610; 85652; 85730; 86140; 86850; 86900; 86901; 87502; 93005; 93306; 96365; 96372; 96375; 99285

== ENCOUNTER 2018-06-05 10:00 | Inpatient (IN) | payer MEDICARE ==
--- NOTE | 2018-06-05 10:48 | ED ---
General Adult HPI - General Chief complaint: Shortness of Breath Stated complaint: MARY Time Seen by Provider: 06/05/18 10:05 Source: patient, RN notes reviewed Mode of arrival: ambulatory Limitations: no limitations - History of Present Illness Initial comments: This is an 87-year-old male who presents emergency Department with a past medical history significant for pericardial effusion. Patient was over to see the gas plumbing inspector today and they were worried about fluid on the lungs as well as around heart and he wanted the patient to come to the emergency department had a CAT scan to be admitted. Patient states he has noticed an increasing shortness of breath over the last 6 months and he believes this is when all of this is started. Patient states he has been admitted the hospital for similar symptoms recently and they sent him home on a bunch of new medications but apparently the symptoms symptoms are worsening as well as his echo according to the patient. Patient denies any chest pain though he has had bypass surgery in the past. Pat ient denies any fever chills. Patient denies any cough. Patient denies abdominal pain patient denies nausea vomiting diarrhea. Patient denies any swelling to legs or calf tenderness. - Related Data Home Medications Medication Instructions Recorded Confirmed Multivitamins, Thera [Multivitamin 1 tab PO DAILY 12/17/13 06/05/18 (formulary)] Simvastatin [Zocor] 40 mg PO HS 12/17/13 06/05/18 Hydrocodone/Acetaminophen [[place] 0.5 tab PO Q3H 10/11/16 06/05/18 7.5-325] Acetaminophen Tab [Tylenol Tab] 250 - 500 mg PO BID PRN 06/05/18 06/05/18 Ibuprofen [Motrin] 600 mg PO Q8HR PRN 06/05/18 06/05/18 Metoprolol Tartrate [Lopressor] 25 mg PO BID 06/05/18 06/05/18 Previous Rx's Medication Instructions Recorded Aspirin 81 mg PO DAILY chew 05/14/18 Colchicine [Colcrys] 0.6 mg PO BID #60 each 05/14/18 Furosemide [Lasix] 20 mg PO DAILY #30 tab 05/14/18 Indomethacin [Indocin] 25 mg PO TID #18 cap 05/14/18 Levothyroxine Sodium [Synthroid] 25 mcg PO DAILY@0630 #30 tab 05/14/18 Allergies Allergy/AdvReac Type Severity Reaction Status Date / Time No Known Allergies Allergy Verified 06/05/18 10:39 Review of Systems ROS Statement: Those systems with pertinent positive or pertinent negative responses have been documented in the HPI. ROS Other: All systems not noted in ROS Statement are negative. 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 History of Any Multi-Drug Resistant Organisms: None Reported Past Surgical History: Coronary Bypass/CABG, Heart Catheterization, Hernia Repair, Joint Replacement, Prostate Surgery Additional Past Surgical History / Comment(s): CABG 2 vessel (2009), coby hip replacements, prostatectomy, bilateral inguinal hernia repairs with R side done twice, colonoscopy with benign polypectomy, bilateral cataract removals. Past Anesthesia/Blood Transfusion Reactions: No Reported Reaction Additional Past Anesthesia/Blood Transfusion Reaction / Comment(s): unknown hx o f blood tranfusion Past Psychological History: Depression Smoking Status: Former smoker Past Alcohol Use History: None Reported Past Drug Use History: None Reported - Past Family History Father Family Medical History: CVA/TIA Additional Family Medical History / Comment(s): Father of a cerebral hemorrhage at age 53yrs. Mother Family Medical History: CVA/TIA Additional Family Medical History / Comment(s): Mother at age 89 yrs from a CVA. General Exam - General Exam Comments Initial Comments: GENERAL: Patient is well-developed and well-nourished. Patient is nontoxic and well-hydrated and is in no acute distress. ENT: Neck is soft and supple. No significant lymphadenopathy is noted. Oropharynx is clear. Moist mucous membranes. Neck has full range of motion without eliciting any pain. Thyroid feels like there is a little bit of a nodule on the left side. EYES: The sclera were anicteric and conjunctiva were pink and moist. Extraocular movements were intact and pupils were equal round and reactive to light. Eyelids were unremarkable. PULMONARY: Unlabored respirations. Good breath sounds bilaterally. No audible rales rhonchi or wheezing was noted. CARDIOVASCULAR: There is a regular rate and rhythm without any murmurs gallops or rubs. ABDOMEN: Soft and nontender with normal bowel sounds. No palpable organomegaly was noted. There is no palpable pulsatile mass. SKIN: Skin is clear with no lesions or rashes and otherwise unremarkable. NEUROLOGIC: Patient is alert and oriented x3. Cranial nerves II through XII are grossly intact. Motor and sensory are also intact. Normal speech, volume and content. Symmetrical smile. MUSCULOSKELETAL: Normal extremities with adequate strength and full range of motion. No lower extremity swelling or edema. No calf tenderness. LYMPHATICS: No significant lymphadenopathy is noted PSYCHIATRIC: Normal psychiatric evaluation. Limitations: no limitations Course Vital Signs 06/05/18 10:06 Temperature 97.5 F L Pulse Rate 87 Respiratory 20 Rate Blood Pressure 131/87 O2 Sat by Pulse 97 Oximetry Medical Decision Making - Medical Decision Making EKG shows sinus rhythm with occasional PAC at 90 bpm. Was 240 QRS 76 QT interval 374 QTC is 457. Patient's EKG shows a first-degree AV block. No ST segment elevation. CT of the chest showed a moderate left-sided pleural effusion and a small right- sided pleural effusion. Cardiology and informed me that the patient had a pericardial effusion as well. I spoke with Dr. Morales he agreed to admit the patient admitted the patient wrote admitting orders - Lab Data Result diagrams: 06/05/18 11:13 06/05/18 11:13 Lab Results 06/05/18 06/05/18 06/05/18 Range/Units 11:13 11:13 11:13 WBC 6.4 (3.8-10.6) k/uL RBC 4.07 L (4.30-5.90) m/uL Hgb 11.3 L (13.0-17.5) gm/dL Hct 35.6 L (39.0-53.0) % MCV 87.5 (80.0-100.0) fL MCH 27.7 (25.0-35.0) pg MCHC 31.7 (31.0-37.0) g/dL RDW 16.8 H (11.5-15.5) % Plt Count 158 (150-450) k/uL Neutrophils % 80 % Lymphocytes % 11 % Monocytes % 6 % Eosinophils % 1 % Basophils % 0 % Neutrophils # 5.1 (1.3-7.7) k/uL Lymphocytes # 0.7 L (1.0-4.8) k/uL Monocytes # 0.4 (0-1.0) k/uL Eosinophils # 0.1 (0-0.7) k/uL Basophils # 0.0 (0-0.2) k/uL Hypochromasia Moderate Poikilocytosis Slight Anisocytosis Slight PT 11.5 (9.0-12.0) sec INR 1.1 (<1.2) APTT 25.5 (22.0-30.0) sec Sodium 133 L (137-145) mmol/L Potassium 4.0 (3.5-5.1) mmol/L Chloride 99 (98-107) mmol/L Carbon Dioxide 26 (22-30) mmol/L Anion Gap 8 mmol/L BUN 15 (9-20) mg/dL Creatinine 0.77 (0.66-1.25) mg/dL Est GFR (CKD-EPI)AfAm >90 (>60 ml/min/1.73 sqM) Est GFR (CKD-EPI)NonAf 82 (>60 ml/min/1.73 sqM) Glucose 96 (74-99) mg/dL Calcium 8.8 (8.4-10.2) mg/dL Magnesium 1.9 (1.6-2.3) mg/dL Total Bilirubin 0.8 (0.2-1.3) mg/dL AST 24 (17-59) U/L ALT 36 (21-72) U/L Alkaline Phosphatase 75 (38-126) U/L Troponin I (0.000-0.034) ng/mL NT-Pro-B Natriuret Pep pg/mL Total Protein 7.8 (6.3-8.2) g/dL Albumin 3.9 (3.5-5.0) g/dL TSH 7.100 H (0.465-4.680) mIU/L Free T4 1.14 (0.78-2.19) ng/dL 06/05/18 06/05/18 Range/Units 11:13 11:13 WBC (3.8-10.6) k/uL RBC (4.30-5.90) m/uL Hgb (13.0-17.5) gm/dL Hct (39.0-53.0) % MCV (80.0-100.0) fL MCH (25.0-35.0) pg MCHC (31.0-37.0) g/dL RDW (11.5-15.5) % Plt Count (150-450) k/uL Neutrophils % % Lymphocytes % % Monocytes % % Eosinophils % % Basophils % % Neutrophils # (1.3-7.7) k/uL Lymphocytes # (1.0-4.8) k/uL Monocytes # (0-1.0) k/uL Eosinophils # (0-0.7) k/uL Basophils # (0-0.2) k/uL Hypochromasia Poikilocytosis Anisocytosis PT (9.0-12.0) sec INR (<1.2) APTT (22.0-30.0) sec Sodium (137-145) mmol/L Potassium (3.5-5.1) mmol/L Chloride (98-107) mmol/L Carbon Dioxide (22-30) mmol/L Anion Gap mmol/L BUN (9-20) mg/dL Creatinine (0.66-1.25) mg/dL Est GFR (CKD-EPI)AfAm (>60 ml/min/1.73 sqM) Est GFR (CKD-EPI)NonAf (>60 ml/min/1.73 sqM) Glucose (74-99) mg/dL Calcium (8.4-10.2) mg/dL Magnesium (1.6-2.3) mg/dL Total Bilirubin (0.2-1.3) mg/dL AST (17-59) U/L ALT (21-72) U/L Alkaline Phosphatase (38-126) U/L Troponin I <0.012 (0.000-0.034) ng/mL NT-Pro-B Natriuret Pep 267 pg/mL Total Protein (6.3-8.2) g/dL Albumin (3.5-5.0) g/dL TSH (0.465-4.680) mIU/L Free T4 (0.78-2.19) ng/dL Disposition Clinical Impression: Pericardial effusion, Pleural effusion, Dyspnea Disposition: ADMITTED IP TO THIS HOSP Is patient prescribed a controlled substance at d/c from ED?: No Referrals: Juwan Hadley MD [Primary Care Provider] - 1-2 days Time of Disposition: 12:53
[2018-06-05 11:26] LABS: Anisocytosis Slight; Basophils % (A) 0 %; Eosinophils # (A) 0.1 k/uL (0-0.7); Eosinophils % (A) 1 %; HCT 35.6 % (39.0-53.0); HGB 11.3 gm/dL (13.0-17.5); Hypochromasia Moderate; Lymphocytes # (A) 0.7 k/uL (1.0-4.8); Lymphocytes % (A) 11 %; MCH 27.7 pg (25.0-35.0); MCHC 31.7 g/dL (31.0-37.0); MCV 87.5 fL (80.0-100.0); Mean Platelet Volume 10.7; Monocytes # (A) 0.4 k/uL (0-1.0); Monocytes % (A) 6 %; Neutrophils # (A) 5.1 k/uL (1.3-7.7); Neutrophils % (A) 80 %; Platelet Count 158 k/uL (150-450); Poikilocytosis Slight; RBC 4.07 m/uL (4.30-5.90); RDW 16.8 % (11.5-15.5); WBC 6.4 k/uL (3.8-10.6)
[2018-06-05 11:35] LABS: INR 1.1 (<1.2); Partial Thromboplastin Time 25.5 sec (22.0-30.0); Prothrombin Time 11.5 sec (9.0-12.0)
[2018-06-05 11:39] LABS: ALT 36 U/L (21-72); AST 24 U/L (17-59); Albumin 3.9 g/dL (3.5-5.0); Alkaline Phosphatase 75 U/L (38-126); Anion Gap 8 mmol/L; Blood Urea Nitrogen 15 mg/dL (9-20); Calcium 8.8 mg/dL (8.4-10.2); Carbon Dioxide 26 mmol/L (22-30); Chloride 99 mmol/L (98-107); Glucose 96 mg/dL (74-99); Magnesium 1.9 mg/dL (1.6-2.3); Sodium 133 mmol/L (137-145); Total Bilirubin 0.8 mg/dL (0.2-1.3); Total Protein 7.8 g/dL (6.3-8.2)
[2018-06-05 11:55] LABS: T4, Free (Free Thyroxine) 1.14 ng/dL (0.78-2.19)
--- NOTE | 2018-06-05 12:23 | CT ---
CT CHEST FOR PULMONARY EMBOLISM. EXAMINATION TYPE: CT chest angio for PE DATE OF EXAM: 06/05/2018 INDICATION: MARY CT DLP: 324.2 mGycm, Automated exposure control for dose reduction was used. CONTRAST: Patient injected with 100 ml mL of Isovue 370. COMPARISON: 05/11/2018 TECHNIQUE: CT of the chest is performed on a spiral scan at 2 mm thick sections. Study is performed with intravenous contrast timed for evaluation for pulmonary embolism. This will limit additional po rtions of the evaluation. 3-D MIP images reconstructed by the technologist are reviewed on the compu ter in the coronal and sagittal planes. FINDINGS: There is a moderate to large left pleural effusion. Small right pleural effusion is present. There is compressive atelectasis adjacent to the pleural effusions. No mediastinal or hilar adenopathy enlarged by CT criteria is evident. The ascending aorta diameter at the level of the main pulmonary artery is 3.6 cm. The main pulmonary artery diameter at the bifur cation is 3.[address] section through the upper abdomen . Cyst may be within thee superior right lobe liver chel suring 4 Hounsfield units and 2.7 cm in diameter. IMPRESSIONS: 1. No suspicious changes for acute pulmonary embolism. 2. Moderate to large left pleural effusion. Small right pleural effusion.
--- NOTE | 2018-06-05 14:06 | US ---
EXAMINATION TYPE: US chest DATE OF EXAM: 06/05/2018 COMPARISON: NONE CLINICAL HISTORY: pleural effusion. TECHNIQUE: Targeted ultrasound of the posterior lower bilateral hemithoraces EXAM MEASUREMENTS: Right Pleural Effusion pocket size: 7.1 cm Right skin surface to fluid distance: 2.1 cm Left Pleural Effusion pocket size: 13.6 cm Left skin surface to fluid distance: 2.2 cm Right side marked for possible thoracentesis outside the dept. Left side marked for possible thoracentesis outside the dept. Pulmonologists are able to review the images in the patient?s EMR. IMPRESSIONS: Bilateral pleural effusions, left greater than right with associated bilateral compressi ve atelectasis.
[2018-06-05 14:15] VITALS: BMI 27.3
--- NOTE | 2018-06-05 14:28 | P.HPIM ---
History of Present Illness H&P Date: 06/05/18 Chief Complaint: Shortness of breath referred from cardiology clinic The patient is a 87-year-old male with a past medical history of diastolic CHF, pericardial effusion, CABG was referred to the ER after having a follow-up visit with Dr. Carreon in cardiology clinic. Apparently the patient has been having progressive worsening exertional dyspnea over the last 6 months he was actually recently hospitalized here for acute pericarditis and pericardial effusion and mild diastolic CHF exacerbation, he was discharged home on colchicine Indocin and Lasix with plans to follow-up in cardiology clinic and subsequently had a prior echocardiogram today and was referred here for a CT of his chest. The patient denies any chest pain, denies palpitations and syncope , denies lower extremity swelling, he reports a dry cough And a recent episode of loose stools. He denies any nausea vomiting or abdominal pain. Review of records from echocardiogram on 05/11/18 indicates a preserved LVEF of 55-60% and mildly dilated left atrium In the ER the patient EKG that shows sinus mechanism with occasional PACs with a first-degree AV block, CTA of the chest was negative for PE but did show a moderate left-sided pleural effusion and a small right-sided pleural effusion. Labs are remarkable for sodium of 133 hemoglobin and hematocrit of 11.3 and 35.6, TSH was 7.1 and free T4 was 1.14. 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 History of Any Multi-Drug Resistant Organisms: None Reported Past Surgical History: Coronary Bypass/CABG, Heart Catheterization, Hernia Repair, Joint Replacement, Prostate Surgery Additional Past Surgical History / Comment(s): CABG 2 vessel (2009), coby hip replacements, prostatectomy, bilateral inguinal hernia repairs with R side done twice, colonoscopy with benign polypectomy, bilateral cataract removals. Past Anesthesia/Blood Transfusion Reactions: No Reported Reaction Additional Past Anesthesia/Blood Transfusion Reaction / Comment(s): unknown hx of blood tranfusion Past Psychological History: Depression Smoking Status: Former smoker Past Alcohol Use History: None Reported Past Drug Use History: None Reported - Past Family History Father Family Medical History: CVA/TIA Additional Family Medical History / Comment(s): Father of a cerebral hemorrhage at age 53yrs. Mother Family Medical History: CVA/TIA Additional Family Medical History / Comment(s): Mother at age 89 yrs from a CVA. Medications and Allergies Home Medications Medication Instructions Recorded Confirmed Type Multivitamins, Thera [Multivitamin 1 tab PO DAILY 12/17/13 06/05/18 History (formulary)] Simvastatin [Zocor] 40 mg PO HS 12/17/13 06/05/18 History Hydrocodone/Acetaminophen [[place] 0.5 tab PO Q3H 10/11/16 06/05/18 History 7.5-325] Aspirin 81 mg PO DAILY chew 05/14/18 06/05/18 Rx Colchicine [Colcrys] 0.6 mg PO BID #60 each 05/14/18 06/05/18 Rx Furosemide [Lasix] 20 mg PO DAILY #30 tab 05/14/18 06/05/18 Rx Indomethacin [Indocin] 25 mg PO TID #18 cap 05/14/18 06/05/18 Rx Levothyroxine Sodium [Synthroid] 25 mcg PO DAILY@0630 #30 tab 05/14/18 06/05/18 Rx Acetaminophen Tab [Tylenol Tab] 250 - 500 mg PO BID PRN 06/05/18 06/05/18 History Ibuprofen [Motrin] 600 mg PO Q8HR PRN 06/05/18 06/05/18 History Metoprolol Tartrate [Lopressor] 25 mg PO BID 06/05/18 06/05/18 History Allergies Allergy/AdvReac Type Severity Reaction Status Date / Time No Known Allergies Allergy Verified 06/05/18 10:39 Physical Exam Vitals: Vital Signs Temp Pulse Resp BP Pulse Ox 06/05/18 10:06 97.5 F L 87 20 131/87 97 Intake and Output 06/04/18 06/05/18 06/05/18 22:59 06:59 14:59 Other: Weight 79.379 kg Constitutional: No acute distress, conversant, pleasant, negative Becks triad Eyes: Anicteric sclerae, moist conjunctiva, no lid-lag, PERRLA ENMT: NC/AT,Oropharynx clear, no erythema, exudates Neck:Supple, FROM, no masses, no JVD, No carotid bruits; No thyromegaly Lungs: Diminished in the bases, decreased aeration on the left dullness to percussion, respirations unlabored, no accessory muscle use Cardiovascular: Heart regular in rate and rhythm, No murmurs, gallops, or rubs no peripheral edema Abdominal: Soft Nontender, nom distended, no guarding, no rebound or rigidity, Normoactive bowel sounds No hepatomegaly, No splenomegaly, No palpable mass No abdominal wall hernia noted Skin: Normal temperature, tone, texture, turgor, No induration No subcutaneous nodules, No rash, lesions, No ulcers Extremities:No digital cyanosis No clubbing, Pedal pulses intact and symmetrical Radial pulses intact and symmetrical Normal gait and station, No calf tenderness Psychiatric: Alert and oriented to person, place and time, Appropriate affect Intact judgement Neuro: Muscles Strength 5/5 in all 4 extremities, Sensation to light touch grossly present throughout, Cranial nerves II-XII grossly intact. No focal sensory deficits Results CBC & Chem 7: 06/05/18 11:13 06/05/18 11:13 Labs: Abnormal Lab Results - Last 24 Hours (Table) 06/05/18 06/05/18 Range/Units 11:13 11:13 RBC 4.07 L (4.30-5.90) m/uL Hgb 11.3 L (13.0-17.5) gm/dL Hct 35.6 L (39.0-53.0) % RDW 16.8 H (11.5-15.5) % Lymphocytes # 0.7 L (1.0-4.8) k/uL Sodium 133 L (137-145) mmol/L TSH 7.100 H (0.465-4.680) mIU/L Assessment and Plan (1) Pleural effusion Current Visit: Yes Status: Acute Code(s): J90 - PLEURAL EFFUSION, NOT ELSEWHERE CLASSIFIED SNOMED Code(s): 23062916 (2) Pericardial effusion Current Visit: Yes Status: Acute Code(s): I31.3 - PERICARDIAL EFFUSION (NONINFLAMMATORY) SNOMED Code(s): 282656905 (3) Dyspnea on exertion Current Visit: No Status: Acute Code(s): R06.09 - OTHER FORMS OF DYSPNEA SNOMED Code(s): 51452095 (4) Hyponatremia Current Visit: No Status: Acute Code(s): E87.1 - HYPO-OSMOLALITY AND HYPONATREMIA SNOMED Code(s): 23414411 Plan: The patient is admitted to the telemetry unit after presenting with exertional dyspnea and found to have a moderate to large left-sided pleural effusion, has history of pericardial effusion with no signs of temperature not on physical exam. Apparently patient had a echocardiogram done in clinic by cardiology and will be seen here by Dr. Wood. We'll order a chest ultrasound and consult pulmonary to evaluate for possible thoraentesis. Resume home medications. code status : FULL code anticipated discharge: 1-2 days prophylaxis : SCDS and heparin
[2018-06-05] MEDS: HYDROcodone/APAP 7.5-325MG 1 EACH TAB PO SCH ×3 (15:03→21:10)
[2018-06-05] MEDS ORDERED: LIDOCAINE 1% INJ 10MG/ML (20 ML MDV) SQ ONE (15:43)
[2018-06-05] MEDS ORDERED: HEPARIN SODIUM,PORCINE 5,000 UNIT/ML 1 ML VIAL SQ SCH (16:00)
--- NOTE | 2018-06-05 16:32 | XR ---
EXAMINATION TYPE: XR chest 1V portable DATE OF EXAM: 06/05/2018 COMPARISON: 05/11/2018 INDICATION: Attempted thoracentesis TECHNIQUE: Single frontal view of the chest is obtained. FINDINGS: The heart size is indistinct. The pulmonary vasculature is normal. There is a moderate left pleural effusion. No pneumothorax is evident. Follow-up can be performed for changing clinical symptoms. IMPRESSION: 1. No pneumothorax post attempted thoracentesis. Moderate left pleural effusion remains present. Foll ow-up can be performed as clinically indicated.
--- NOTE | 2018-06-05 16:49 | US ---
EXAMINATION TYPE: US chest DATE OF EXAM: 06/05/2018 COMPARISON: 06/05/2018 CHEST CLINICAL HISTORY: left sided thoracentesis. Rescan of left chest for Dr Paris for thoracentesis due to unable to drain fluid TECHNIQUE: Targeted ultrasound of the posterior lower left hemithorax EXAM MEASUREMENTS: Left Pleural Effusion pocket size: 13.6 cm Left skin surface to fluid distance: 2.1 cm Left side marked for possible thoracentesis outside the dept. Pulmonologists are able to review the images in the patient?s EMR. All images are marked left. IMPRESSIONS: Left pleural fluid collection. This contains some internal echoes and appears less anech oic than previous.
[2018-06-05 17:39] LABS: Total Protein 7.7 g/dL (6.3-8.2)
--- NOTE | 2018-06-05 17:55 | XR ---
EXAMINATION TYPE: XR chest 1V portable DATE OF EXAM: 06/05/2018 HISTORY: Status post thoracentesis COMPARISON: 06/05/2018 TECHNIQUE: Single view of the chest is submitted. FINDINGS: Left Basilar pleural catheter noted. I Cannot exclude a tiny left-sided pneumothorax. Left-sided pleu ral effusion is significantly smaller in size. Suspect small right-sided effusion. Demonstrated are scattered senescent parenchymal change. There is no evidence for focal infiltrate. The heart is stable. Hilar and mediastinal structures are within normal limits. Degenerative changes are seen of the dorsal spine. IMPRESSION: 1. Left Basilar pleural catheter noted. I Cannot exclude a tiny left-sided pneumothorax. Left-sided pleural effusion is significantly smaller in size. Suspect small right-sided effusion.
--- NOTE | 2018-06-05 18:00 | P.CNPUL ---
History of Present Illness Consult date: 06/05/18 Requesting physician: Rodolfo Bazan Reason for consult: pleural effusion Chief complaint: shortness of breath History of present illness: this is an 87-year-old white male with history of coronary artery disease, previous CABG, history of chronic moderate pericardial effusion, normally sees Dr. Carreon in the cardiology clinic. Patient was seen today by Dr. Carreon for progressive shortness of breath, his shortness of breath has been worse over the last 6 months. Patient had previous history of diastolic congestive heart failure, history of pericarditis, and history of pericardial effusion as well as mild diastolic congestive heart failure. He was recently discharged on multiple medications including colchicine, Indocin, Lasix. Today when he was seen by Dr. Carreon, he recommended patient to go to the ER for evaluation of shortness of breath and left-sided pleural effusion. CT of the chest clearly showed evidence of large left-sided pleural effusion, this was confirmed by ultrasound. I was asked to see the patient for evaluation of the pleural effusion. So the patient in the emergency room, attempted to drain the fluid, however the fluid was difficult to drain, and it was noted to be bloody/dark blood was noted in the aspiration needle. Recommended interventional radiology to have a pigtail catheter placement and this was done shortly after I saw the patient and attempted left sided thoracentesis. Post thoracentesis attempt, I did recommend a chest x-ray which showed no increase in the said the pleural effusion, and there was no evidence of pneumothorax. Patient was sent to radiation oncology special procedures, and he underwent left sided pigtail catheter placement by interventional radiology/Dr. De Oliveira. Over 2 L of bloody effusion was removed from the left pleural space, patient became diaphoretic, and he was having some chest discomfort and the fluid was being drained. Then I went back and saw the patient in the interventional radiology procedure room, he was already feeling better, blood pressure was noted to be 118/80, heart rate was 85, and O2 satu ration was in the 90s. Patient was feeling better especially after the tube was clamped follow-up chest x-ray showed complete expansion of the left lung, and no residual effusion noted. Considering the amount of blood removed from the left pleural space, patient was admitted to the intensive care unit for further evaluation. The fluid was sent for different diagnostic studies including cultures and including cytology. Again follow-up chest x-ray showed significant improvement, and clinically the patient felt much better shortly after fluid was drained from the left chest. Review of Systems refer to the history of present illness, patient's main complaints were mostly shortness of breath, progressive over the last 6 months. Denied any chest pain, denied any palpitations, denied any syncopal episodes, denied any leg swelling. 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 History of Any Multi-Drug Resistant Organisms: None Reported Past Surgical History: Coronary Bypass/CABG, Heart Catheterization, Hernia Repair, Joint Replacement, Prostate Surgery Additional Past Surgical History / Comment(s): CABG 2 vessel (2009), coby hip replacements, prostatectomy, bilateral inguinal hernia repairs with R side done twice, colonoscopy with benign polypectomy, bilateral cataract removals. Past Anesthesia/Blood Transfusion Reactions: No Reported Reaction Additional Past Anesthesia/Blood Transfusion Reaction / Comment(s): unknown hx of blood tranfusion Past Psychological History: Depression Smoking Status: Former smoker Past Alcohol Use History: None Reported Past Drug Use History: None Reported - Past Family History Father Family Medical History: CVA/TIA Additional Family Medical History / Comment(s): Father of a cerebral hemorrhage at age 53yrs. Mother Family Medical History: CVA/TIA Additional Family Medical History / Comment(s): Mother at age 89 yrs from a CVA. Medications and Allergies Home Medications Medication Instructions Recorded Confirmed Type Multivitamins, Thera [Multivitamin 1 tab PO DAILY 12/17/13 06/05/18 History (formulary)] Simvastatin [Zocor] 40 mg PO HS 12/17/13 06/05/18 History Hydrocodone/Acetaminophen [[place] 0.5 tab PO Q3H 10/11/16 06/05/18 History 7.5-325] Aspirin 81 mg PO DAILY chew 05/14/18 06/05/18 Rx Colchicine [Colcrys] 0.6 mg PO BID #60 each 05/14/18 06/05/18 Rx Furosemide [Lasix] 20 mg PO DAILY #30 tab 05/14/18 06/05/18 Rx Indomethacin [Indocin] 25 mg PO TID #18 cap 05/14/18 06/05/18 Rx Levothyroxine Sodium [Synthroid] 25 mcg PO DAILY@0630 #30 tab 05/14/18 06/05/18 Rx Acetaminophen Tab [Tylenol Tab] 250 - 500 mg PO BID PRN 06/05/18 06/05/18 History Ibuprofen [Motrin] 600 mg PO Q8HR PRN 06/05/18 06/05/18 History Metoprolol Tartrate [Lopressor] 25 mg PO BID 06/05/18 06/05/18 History Allergies Allergy/AdvReac Type Severity Reaction Status Date / Time No Known Allergies Allergy Verified 06/05/18 10:39 Physical Exam Vitals: Vital Signs Temp Pulse Resp BP Pulse Ox 06/05/18 13:30 82 17 124/71 95 06/05/18 13:00 100 18 117/86 92 L 06/05/18 12:30 75 20 148/93 93 L 06/05/18 12:00 18 110/86 06/05/18 11:00 88 20 131/97 95 06/05/18 10:06 97.5 F L 87 20 131/87 97 Intake and Output 06/05/18 06/05/18 06/05/18 06:59 14:59 22:59 Other: Weight 79.379 kg Physical Exam:revealed an 87-year-old white male in no distress, pleasant HEENT:[Neck is supple.] [No neck masses.] [No thyromegaly.] [No JVD.]hearing aids noted in place. Moist mucous membranes. Chest: [diminished breath sounds at the bases especially at the left base, no crackles nor rhonchi no wheezes.no chest retraction, no chest wall tenderness. Symmetrical expansion noted. Cardiac Exam: [Normal S1 and S2, no S3 gallop, no murmur.] Abdomen: [Soft, nontender, no megaly, no rebound, no guarding, normal bowel sounds.] Extremities: [No clubbing, no edema, no cyanosis.] Neurological Exam: [No focal neurologic deficit.]alert oriented 3. Psychiatric: Normal mood, affect and mental status examination. Skin: No rashes. Results - Laboratory Findings CBC and BMP: 06/05/18 11:13 06/05/18 11:13 PT/INR, D-dimer PT 11.5 sec (9.0-12.0) 06/05/18 11:13 INR 1.1 (<1.2) 06/05/18 11:13 Abnormal lab findings: Abnormal Labs 06/05/18 06/05/18 11:13 11:13 RBC 4.07 L Hgb 11.3 L Hct 35.6 L RDW 16.8 H Lymphocytes # 0.7 L Sodium 133 L TSH 7.100 H - Diagnostic Findings Chest x-ray: image reviewed (chest x-ray, CT of the chest, ultrasound of the chest, were all reviewed.) Assessment and Plan Assessment: impression: 1 left-sided pleural effusion, consistent with left sided hemothorax. Exact etiology is not clear at this point, fluid was sent for different diagnostic studies. Results are pending. 2shortness of breath secondary to left sided pleural effusion/hemothorax. 3 history of coronary artery disease and previous CABG 4history of degenerative joint disease 5 history of pericarditis and pericardial effusion 6 history of congestive heart failure and diastolic dysfunction 7 history of chronic anemia 8 history of prostate cancer. 9 hypercholesterolemia 10 GERD without esophagitis. Recommendation: Patient underwent left sided pigtail catheter placement by interventional radiology based on my recommendation, and significant amount of blood was drained from the left pleural space. Fluid was sent for different diagnostic studies. Patient will be admitted to the intensive care unit, will check CBC, and closely monitor the chest tube output for any further blood loss.we'll repeat chest x-ray in a.m., and patient will be resumed on most of his previous cardiac medications. Will follow closely. Family updated on his condition Time with Patient: Greater than 30
[2018-06-05 18:03] LABS: Glucose,Whole Blood 89 mg/dL (75-99)
[2018-06-05 18:37] LABS: Anisocytosis Slight; Basophils % (A) 0 %; Eosinophils # (A) 0.1 k/uL (0-0.7); Eosinophils % (A) 1 %; HCT 33.9 % (39.0-53.0); HGB 10.7 gm/dL (13.0-17.5); Hypochromasia Moderate; Lymphocytes # (A) 0.8 k/uL (1.0-4.8); Lymphocytes % (A) 12 %; MCH 28.3 pg (25.0-35.0); MCHC 31.7 g/dL (31.0-37.0); MCV 89.1 fL (80.0-100.0); Monocytes # (A) 0.4 k/uL (0-1.0); Monocytes % (A) 6 %; Neutrophils # (A) 5.4 k/uL (1.3-7.7); Neutrophils % (A) 78 %; Platelet Count 145 k/uL (150-450); RDW 17.1 % (11.5-15.5)
[2018-06-05 18:48] LABS: Anion Gap 8 mmol/L; Blood Urea Nitrogen 16 mg/dL (9-20); Calcium 8.6 mg/dL (8.4-10.2); Carbon Dioxide 25 mmol/L (22-30); Chloride 101 mmol/L (98-107); Glucose 95 mg/dL (74-99); Potassium 4.4 mmol/L (3.5-5.1); Sodium 134 mmol/L (137-145)
[2018-06-05] MEDS: INDOMETHACIN 25 MG CAP PO SCH ×2 (18:49→22:26)
--- NOTE | 2018-06-05 20:38 | OP ---
OPERATIVE REPORT OPERATIVE PROCEDURE: Left-sided thoracentesis. PREOPERATIVE DIAGNOSIS: Left pleural effusion. POSTOPERATIVE DIAGNOSIS: Left pleural effusion. ANESTHESIA USED: Lidocaine 1%, 4 mL. PROCEDURE DESCRIPTION: Patient was placed in a sitting upright position. The area below the left scapula was prepared in a sterile fashion and drapes were applied. The area of the fluid was earlier localized by ultrasound, and that area was basically at the eighth intercostal space and tip of the scapula. The area was locally anesthetized with lidocaine, and using a 26-gauge needle, the needle was inserted at the same site and advanced into the pleural space. With difficulty I was able to get a small amount of dark bloody effusion. Then another attempt was made with the same needle at the same site, and on a couple of attempts it was difficult to get the fluid drained into the needle. Then a small tiny incision was made at the same site. I advanced the catheter and the needle together into the pleural space. As the pleural space was entered, the catheter was advanced out of the needle, and the needle was pulled out of the pleural space. No fluid was obtained; hence no further attempts were made. Ultrasound was rechecked. Chest x-ray postoperatively was rechecked. Then I decided that the fluid was probably loculated or bloody and recommended pigtail catheter placement by Interventional Radiology. I notified Dr. De Oliveira, and he will be coming back to place a pigtail catheter in the left pleural space. Chest x-ray showed no evidence of any complications after the thoracentesis attempts. MMODL / IJN: [id number] /
[2018-06-05] MEDS: ATORVASTATIN 20 MG TAB PO SCH (21:10)
[2018-06-05] MEDS: METOPROLOL TARTRATE 25 MG TAB PO SCH (21:10)
[2018-06-05 21:36] LABS: Appearance,BF Bloody; Color,BF Red; Nucleated Cells, Body Fluid 2400 /uL; RBC, Body Fluid 4081600 /uL
[2018-06-05 21:37] LABS: Mononuclear WBC,Body Fluid 11 %; Polynuclear WBC,Body Fluid 88 %
[2018-06-05] MEDS: COLCHICINE 0.6 MG EACH PO SCH (22:28)
[2018-06-06] MEDS: HYDROcodone/APAP 7.5-325MG 1 EACH TAB PO SCH ×7 (00:30→20:45)
[2018-06-06 03:32] LABS: Total Protein, Body Fluid 4658 mg/dL
[2018-06-06 04:26] LABS: Anisocytosis Slight; Basophils % (A) 0 %; Eosinophils # (A) 0.1 k/uL (0-0.7); Eosinophils % (A) 2 %; HCT 31.9 % (39.0-53.0); HGB 10.1 gm/dL (13.0-17.5); Hypochromasia Moderate; Lymphocytes # (A) 0.9 k/uL (1.0-4.8); Lymphocytes % (A) 19 %; MCH 28.2 pg (25.0-35.0); MCHC 31.6 g/dL (31.0-37.0); MCV 89.2 fL (80.0-100.0); Mean Platelet Volume 11.8; Monocytes # (A) 0.3 k/uL (0-1.0); Monocytes % (A) 7 %; Neutrophils # (A) 3.4 k/uL (1.3-7.7); Neutrophils % (A) 70 %; Platelet Count 117 k/uL (150-450); RBC 3.57 m/uL (4.30-5.90); WBC 4.9 k/uL (3.8-10.6)
[2018-06-06 06:32] LABS: ALT 25 U/L (21-72); AST 22 U/L (17-59); Albumin 2.9 g/dL (3.5-5.0); Alkaline Phosphatase 58 U/L (38-126); Anion Gap 5 mmol/L; Blood Urea Nitrogen 14 mg/dL (9-20); Calcium 8.3 mg/dL (8.4-10.2); Carbon Dioxide 28 mmol/L (22-30); Chloride 99 mmol/L (98-107); Glucose 97 mg/dL (74-99); Potassium 4.3 mmol/L (3.5-5.1); Sodium 132 mmol/L (137-145); Total Bilirubin 1.1 mg/dL (0.2-1.3); Total Protein 6.4 g/dL (6.3-8.2)
[2018-06-06] MEDS: LEVOTHYROXINE 25 MCG TAB PO SCH (06:38)
--- NOTE | 2018-06-06 07:20 | XR ---
EXAMINATION TYPE: XR chest 1V portable DATE OF EXAM: 06/06/2018 Comparison: 06/05/2018 Clinical History: 87-year-old male s/p left pig tail placement, left hemothorax Findings: The heart is mildly enlarged. Similar mild tortuosity/ectasia of the thoracic aorta. Median sternotom y wires. Increasing left basilar airspace opacity. Suspect trace effusions. Unchanged trace left apic al pneumothorax with pigtail catheter redemonstrated at the left base. Impression: 1. Left-sided pigtail pleural catheter with stable trace left apical pneumothorax. 2. Increasing airspace disease in the left base. Correlate for any clinical signs/symptoms of pneumon ia/aspiration. Atypical pulmonary edema is also a possibility. 3. Residual trace effusions are similar.
--- NOTE | 2018-06-06 08:35 | P.CRDCN ---
History of Present Illness Consult date: 06/05/18 Requesting physician: Rodolfo Bazan Reason for Consult (text): Pleural and pericardial effusion Chief complaint: Shortness of breath History of present illness: This is a pleasant 87-year-old gentleman who follows regularly with Dr. Carreon in the office. He has known history of coronary artery disease with prior bypass surgery 2, hypertension, hyperlipidemia, GERD, iron deficiency a nemia, he was recently in the hospital in April of this year, at admitted with symptoms of shortness of breath. He was found to have mild congestive heart failure at that time, it was also noted that the patient had a mild to moderate pericardial effusion, he was discharged from the hospital on Lasix and colchicine. Patient was seen and evaluated by Dr. Carreon in the office, he was feeling very weak, and significantly more short of breath. For this reason he was advised to come to the emergency room to be admitted to the hospital. CAT scan of the chest was performed on arrival here which showed evidence of a large left-sided pleural effusion confirmed by ultrasound. No evidence of any pe ricardial effusion commented. Pulmonary service was consulted, they attempted to do a thoracentesis, it was noted to be bloody dark blood in the aspiration needle, interventional radiology was then consulted and placed a pigtail catheter, over 2 L of bloody effusion was removed from the left pleural space and the patient became diaphoretic started developing chest discomfort as a fluid was being drained. Blood pressure remained stable at 118/80 with a heart rate in the 80s, O2 saturation in the 90s. Patient was feeling much better after the tube was clamped, follow-up chest x-ray showed complete expansion of the left lung with no residual effusion noted. Because of the amount of blood removed from the left pleural space the patient was admitted to the intensive care unit for further evaluation. Fluid was sent for a differential diagnosis studies including cultures and cytology. Laboratory data on admission here white blood cell count 6.4, hemoglobin 11.3, platelet count 158. Sodium 133, potassium 4.0, BUN 15 and creatinine 0.7. This morning's hemoglobin 10.1, platelets 117. Magnesium level this morning 2.0. Troponin 0.012, BNP level CCLXVII. TSH on admission 7.1. 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 History of Any Multi-Drug Resistant Organisms: None Reported Past Surgical History: Coronary Bypass/CABG, Heart Catheterization, Hernia Repair, Joint Replacement, Prostate Surgery Additional Past Surgical History / Comment(s): CABG 2 vessel (2009), coby hip replacements, prostatectomy, bilateral inguinal hernia repairs with R side done twice, colonoscopy with benign polypectomy, bilateral cataract removals. Past Anesthesia/Blood Transfusion Reactions: No Reported Reaction Additional Past Anesthesia/Blood Transfusion Reaction / Comment(s): unknown hx of blood tranfusion Past Psychological History: Depression Smoking Status: Former smoker Past Alcohol Use History: None Reported Past Drug Use History: None Reported - Past Family History Father Family Medical History: CVA/TIA Additional Family Medical History / Comment(s): Father of a cerebral hemorrhage at age 53yrs. Mother Family Medical History: CVA/TIA Additional Family Medical History / Comment(s): Mother at age 89 yrs from a CVA. Medications and Allergies Home Medications Medication Instructions Recorded Confirmed Type Multivitamins, Thera [Multivitamin 1 tab PO DAILY 12/17/13 06/05/18 History (formulary)] Simvastatin [Zocor] 40 mg PO HS 12/17/13 06/05/18 History Hydrocodone/Acetaminophen [[place] 0.5 tab PO Q3H 10/11/16 06/05/18 History 7.5-325] Aspirin 81 mg PO DAILY chew 05/14/18 06/05/18 Rx Colchicine [Colcrys] 0.6 mg PO BID #60 each 05/14/18 06/05/18 Rx Furosemide [Lasix] 20 mg PO DAILY #30 tab 05/14/18 06/05/18 Rx Indomethacin [Indocin] 25 mg PO TID #18 cap 05/14/18 06/05/18 Rx Levothyroxine Sodium [Synthroid] 25 mcg PO DAILY@0630 #30 tab 05/14/18 06/05/18 Rx Acetaminophen Tab [Tylenol Tab] 250 - 500 mg PO BID PRN 06/05/18 06/05/18 History Ibuprofen [Motrin] 600 mg PO Q8HR PRN 06/05/18 06/05/18 History Metoprolol Tartrate [Lopressor] 25 mg PO BID 06/05/18 06/05/18 History Allergies Allergy/AdvReac Type Severity Reaction Status Date / Time No Known Allergies Allergy Verified 06/05/18 10:39 Physical Exam Vitals: Vital Signs Temp Pulse Pulse Resp BP BP Pulse Ox 06/06/18 07:00 66 21 99/71 95 06/06/18 06:00 70 19 126/86 97 06/06/18 05:00 75 12 106/72 96 06/06/18 04:00 98.5 F 68 20 107/73 96 06/06/18 03:00 66 18 88/65 96 06/06/18 02:00 79 21 115/72 95 06/06/18 01:00 81 18 91/65 94 L 06/06/18 00:00 98.3 F 76 23 96/65 96 06/05/18 23:00 79 15 101/61 95 06/05/18 22:00 88 22 120/72 93 L 06/05/18 21:00 91 21 108/75 93 L 06/05/18 20:00 98.6 F 84 20 102/74 91 L 06/05/18 19:00 92 20 123/79 96 06/05/18 18:30 90 22 131/84 95 06/05/18 18:00 98.3 F 89 9 L 138/90 97 06/05/18 17:30 84 18 123/76 93 L 06/05/18 17:15 86 18 71/38 94 L 06/05/18 17:10 88 18 71/36 94 L 06/05/18 17:00 86 18 115/74 94 L 06/05/18 16:45 80 18 125/76 93 L 06/05/18 13:30 82 17 124/71 95 06/05/18 13:00 100 18 117/86 92 L 06/05/18 12:30 75 20 148/93 93 L 06/05/18 12:00 18 110/86 06/05/18 11:00 88 20 131/97 95 06/05/18 10:06 97.5 F L 87 20 131/87 97 Intake and Output 06/05/18 06/06/18 06/06/18 22:59 06:59 14:59 Intake Total 300 810 360 Output Total 320 595 Balance -20 215 360 Intake: IV 100 0.9 @ 50 100 Oral 360 Tube Feeding 200 810 Output: Chest Tube Drainage 320 20 Left Pleural Pigtail 320 20 Urine 575 Other: # Voids 1 PHYSICAL EXAMINATION: GENERAL: 87-year-old gentleman in no acute distress at the time of my examination HEENT: Head is atraumatic, normocephalic. Pupils equal, round. Sclera anict laly. Conjunctiva are clear. Mucous membranes of the mouth are moist. Neck is supple. There is no elevated jugular venous pressure. No carotid bruit is heard. HEART EXAMINATION: Heart S1 and S2 systolic murmur is heard. CHEST EXAMINATION: Jugular diminished air entry, left side greater than the right. ABDOMEN: Soft, nontender. Bowel sounds are heard. No organomegaly noted. EXTREMITIES: 2+ peripheral pulses with no evidence of peripheral edema and no calf tenderness noted. NEUROLOGIC patient is awake, alert and oriented 3 . . Results 06/06/18 04:16 06/06/18 04:16 Cardiac Enzymes 06/05/18 06/05/18 06/05/18 Range/Units 11:13 11:13 11:13 AST 24 (17-59) U/L Lactate Dehydrogenase 360 (313-618) U/L Troponin I <0.012 (0.000-0.034) ng/mL 06/06/18 Range/Units 04:16 AST 22 (17-59) U/L Lactate Dehydrogenase (313-618) U/L Troponin I (0.000-0.034) ng/mL Coagulation 06/05/18 Range/Units 11:13 PT 11.5 (9.0-12.0) sec APTT 25.5 (22.0-30.0) sec CBC 06/05/18 06/05/18 06/06/18 Range/Units 11:13 18:06 04:16 WBC 6.4 7.0 4.9 (3.8-10.6) k/uL RBC 4.07 L 3.80 L 3.57 L (4.30-5.90) m/uL Hgb 11.3 L 10.7 L 10.1 L (13.0-17.5) gm/dL Hct 35.6 L 33.9 L 31.9 L (39.0-53.0) % Plt Count 158 145 L 117 L (150-450) k/uL Comprehensive Metabolic Panel 06/05/18 06/05/18 06/05/18 Range/Units 11:13 11:13 18:06 Sodium 133 L 134 L (137-145) mmol/L Potassium 4.0 4.4 (3.5-5.1) mmol/L Chloride 99 101 (98-107) mmol/L Carbon Dioxide 26 25 (22-30) mmol/L BUN 15 16 (9-20) mg/dL Creatinine 0.77 0.74 (0.66-1.25) mg/dL Glucose 96 95 (74-99) mg/dL Calcium 8.8 8.6 (8.4-10.2) mg/dL AST 24 (17-59) U/L ALT 36 (21-72) U/L Alkaline Phosphatase 75 (38-126) U/L Total Protein 7.8 7.7 (6.3-8.2) g/dL Albumin 3.9 (3.5-5.0) g/dL 06/06/18 Range/Units 04:16 Sodium 132 L (137-145) mmol/L Potassium 4.3 (3.5-5.1) mmol/L Chloride 99 (98-107) mmol/L Carbon Dioxide 28 (22-30) mmol/L BUN 14 (9-20) mg/dL Creatinine 0.81 (0.66-1.25) mg/dL Glucose 97 (74-99) mg/dL Calcium 8.3 L (8.4-10.2) mg/dL AST 22 (17-59) U/L ALT 25 (21-72) U/L Alkaline Phosphatase 58 (38-126) U/L Total Protein 6.4 (6.3-8.2) g/dL Albumin 2.9 L (3.5-5.0) g/dL Current Medications Generic Name Dose Route Start Last Admin Trade Name Freq PRN Reason Stop Dose Admin Hydrocodone Bitart/Acetaminophen 0.5 each 06/05/18 15:00 06/06/18 06:38 [place] 7.5-325 PO 0.5 each Q3HR ELISA Administration Aspirin 81 mg 06/06/18 09:00 Aspirin PO DAILY [facility] Atorvastatin Calcium 20 mg 06/05/18 21:00 06/05/18 21:10 Lipitor PO 20 mg HS ELISA Administration Colchicine 0.6 mg 06/05/18 21:00 06/05/18 22:28 Colcrys PO 0.6 mg BID ELISA Administration Furosemide 20 mg 06/06/18 09:00 Lasix PO DAILY ELISA Indomethacin 25 mg 06/05/18 16:00 06/05/18 22:26 Indocin PO 25 mg TID ELISA Administration Levothyroxine Sodium 25 mcg 06/06/18 06:30 06/06/18 06:38 Synthroid PO 25 mcg DAILY@0630 ELISA Administration Metoprolol Tartrate 25 mg 06/05/18 21:00 06/05/18 21:10 Lopressor PO 25 mg BID ELISA Administration Multivitamins 1 each 06/06/18 12:00 Theragran PO DAILY@1200 ELISA Intake and Output 06/05/18 06/06/18 06/06/18 22:59 06:59 14:59 Intake Total 300 810 360 Output Total 320 595 Balance -20 215 360 Intake: IV 100 0.9 @ 50 100 Oral 360 Tube Feeding 200 810 Output: Chest Tube Drainage 320 20 Left Pleural Pigtail 320 20 Urine 575 Other: # Voids 1 06/06/18 04:16 06/06/18 04:16 EKG Interpretations (text) EKG on admission showed a normal sinus rhythm with a first-degree AV block. Assessment and Plan Plan: Impression and plan: #1 left-sided pleural effusion, consistent with left sided hemothorax. Exact etiology is not clear at this point, fluid was sent for different diagnostic studies. Results are pending. #2 shortness of breath secondary to left sided pleural effusion/hemothorax. #3 history of coronary artery disease and previous CABG #4 history of degenerative joint disease #5 history of pericarditis and pericardial effusion, echo performed in the o ffice showed a moderate pericardial effusion #6 history of congestive heart failure and diastolic dysfunction #7 history of chronic anemia #8 history of prostate cancer. #9 hypercholesterolemia #10 GERD without esophagitis. Plan Patient underwent left-sided pigtail catheter placement by interventional radiology, fluid has been sent for differential diagnostic studies. Continues to be in the intensive care unit at this time. Repeat chest x-ray performed this morning shows left-sided pigtail pleural catheter was stable trace left apical pneumothorax. Increasing airspace disease at the left base. Residual trace effusions. We will continue with the patient's baby aspirin, Lipitor 20 mg daily, Lasix 20 mg daily, colchicine, indomethacin, and metoprolol. Further recommendations to follow. DNP note has been reviewed, I agree with a documented findings and plan of care. Patient was seen and examined.
[2018-06-06] MEDS: METOPROLOL TARTRATE 25 MG TAB PO SCH ×2 (09:32→20:46)
[2018-06-06] MEDS: FUROSEMIDE 20 MG TAB PO SCH (09:32)
[2018-06-06] MEDS: ASPIRIN 81 MG PO SCH (09:32)
[2018-06-06] MEDS: MULTIVITAMINS, THERA 1 EACH TAB PO SCH (09:32)
[2018-06-06] MEDS: COLCHICINE 0.6 MG EACH PO SCH ×2 (09:33→20:45)
[2018-06-06] MEDS: INDOMETHACIN 25 MG CAP PO SCH ×3 (09:33→22:01)
--- NOTE | 2018-06-06 10:36 | P.PN ---
Subjective Progress Note Date: 06/06/18 Principal diagnosis: left sided hemothorax his is an 87-year-old white male with history of coronary artery disease, previous CABG, history of chronic moderate pericardial effusion, normally sees Dr. Carreon in the cardiology clinic. Patient was seen today by Dr. Carreon for progressive shortness of breath, his shortness of breath has been worse over the last 6 months. Patient had previous history of diastolic congestive heart failure, history of pericarditis, and history of pericardial effusion as well as mild diastolic congestive heart failure. He was recently discharged on multiple medications including colchicine, Indocin, Lasix. Today when he was seen by Dr. Carreon, he recommended patient to go to the ER for evaluation of shortness of breath and left-sided pleural effusion. CT of the chest clearly showed evidence of large left-sided pleural effusion, this was confirmed by ultrasound. I was asked to see the patient for evaluation of the pleural effusion. So the patient in the emergency room, attempted to drain the fluid, however the fluid was difficult to drain, and it was noted to be bloody/dark blood was noted in the aspiration needle. Recommended interventional radiology to have a pigtail catheter placement and this was done shortly after I saw the patient and attempted left sided thoracentesis. Post thoracentesis attempt, I did recommend a chest x-ray which showed no increase in the said the pleural effusion, and there was no evidence of pneumothorax. Patient was sent to radiation oncology special procedures, and he underwent left sided pigtail catheter placement by interventional radiology/Dr. De Oliveira. Over 2 L of bloody effusion was removed from the left pleural space, patient became diaphoretic, and he was having some chest discomfort and the fluid was being drained. Then I went back and saw the patient in the interventional radiology procedure room, he was already feeling better, blood pressure was noted to be 118/80, heart rate was 85, and O2 saturation was in the 90s. Patient was feeling better especially after the tube was clamped follow-up chest x-ray showed complete expansion of the left lung, and no residual effusion noted. Considering the amount of blood removed from the left pleural space, patient was admitted to the intensive care unit for further evaluation. The fluid was sent for different diagnostic studies including cultures and including cytology. Again follow-up chest x-ray showed significant improvement, and clinically the patient felt much better shortly after fluid was drained from the left chest. Patient was reevaluated today on 06/06/2018, remains in the ICU, chest tube remains in place, minimal drainage overnight, chest x-ray showed pigtail catheter in the proper position, left lower lobe atelectasis, strongly doubt infiltrate, and a trace of effusion noted, tiny apical barely noted apical pneumothorax. Patient is asymptomatic. His WBC count is 4.9 hemoglobin is 10.1 his electrolytes are normal. Again there is no evidence of any significant drainage of the left sided chest tube overnight.the fluid LDH is elevated as expected, and protein is also elevated. Clearly needs an exudative pleural effusion, grossly bloody.cultures and cytology are pending. Objective - Vital Signs Vital signs: Vital Signs Temp 98.5 F 06/06/18 08:00 Pulse 77 06/06/18 09:00 Resp 7 L 06/06/18 09:00 BP 108/73 06/06/18 08:00 Pulse Ox 92 L 06/06/18 09:00 Intake & Output 06/05/18 06/06/18 06/06/18 18:59 06:59 18:59 Intake Total 50 1060 560 Output Total 220 695 10 Balance -170 365 550 Weight 79.379 kg Intake: IV 50 50 0.9 @ 50 50 50 Oral 360 Tube Feeding 1010 200 Output: Chest Tube Drainage 220 120 10 Left Pleural Pigtail 220 120 10 Urine 575 Other: # Voids 1 1 - Exam Physical Exam: Revealed an 87-year-old white male in no distress Head: Atraumatic, normocephalic. HEENT:[Neck is supple.] [No neck masses.] [No thyromegaly.] [No JVD.] Chest: [clear breath sounds on the right side, diminished at the left side, left sided pigtail catheter was noted connected to Pleur-evac. Less than 20 mL of blood drained over the last 12 hours. Cardiac Exam: [Normal S1 and S2, no S3 gallop, 2/6 systolic murmur is noted] Abdomen: [Soft, nontender, no megaly, no rebound, no guarding, normal bowel sounds.] Extremities: [No clubbing, no edema, no cyanosis.] Neurological Exam: [No focal neurologic deficit.] psychiatric: Normal mood, affect and mental status examination. skin: No rashes. - Labs CBC & Chem 7: 06/06/18 04:16 06/06/18 04:16 Labs: Abnormal Lab Results - Last 24 Hours (Table) 06/05/18 06/05/18 06/05/18 Range/Units 11:13 11:13 18:06 RBC 4.07 L 3.80 L (4.30-5.90) m/uL Hgb 11.3 L 10.7 L (13.0-17.5) gm/dL Hct 35.6 L 33.9 L (39.0-53.0) % RDW 16.8 H 17.1 H (11.5-15.5) % Plt Count 145 L (150-450) k/uL Lymphocytes # 0.7 L 0.8 L (1.0-4.8) k/uL Sodium 133 L (137-145) mmol/L Calcium (8.4-10.2) mg/dL Albumin (3.5-5.0) g/dL TSH 7.100 H (0.465-4.680) mIU/L 06/05/18 06/06/18 06/06/18 Range/Units 18:06 04:16 04:16 RBC 3.57 L (4.30-5.90) m/uL Hgb 10.1 L (13.0-17.5) gm/dL Hct 31.9 L (39.0-53.0) % RDW 17.0 H (11.5-15.5) % Plt Count 117 L (150-450) k/uL Lymphocytes # 0.9 L (1.0-4.8) k/uL Sodium 134 L 132 L (137-145) mmol/L Calcium 8.3 L (8.4-10.2) mg/dL Albumin 2.9 L (3.5-5.0) g/dL TSH (0.465-4.680) mIU/L Microbiology - Last 24 Hours (Table) 06/05/18 18:00 Gram Stain - Preliminary Pleural Fluid Body Fluid Culture - Preliminary 06/05/18 18:00 Fungal Culture - Preliminary Lung - Left 06/05/18 18:00 Anaerobic Culture - Preliminary Pleural Fluid 06/05/18 18:00 Acid Fast Bacilli Culture - Preliminary Lung Aspirate - Left Assessment and Plan Assessment: impression: 1 left-sided pleural effusion, consistent with left sided hemothorax. Exact etiology is not clear at this point, fluid was sent for different diagnostic studies. Results are pending. 2shortness of breath secondary to left sided pleural effusion/hemothorax. 3 history of coronary artery disease and previous CABG 4history of degenerative joint disease 5 history of pericarditis and pericardial effusion 6 history of congestive heart failure and diastolic dysfunction 7 history of chronic anemia 8 history of prostate cancer. 9 hypercholesterolemia 10 GERD without esophagitis. Recommendation: continue pigtail catheter in the left pleural space, connected to Pleur-evac, no evidence of any significant drainage overnight, no evidence of air leak, will await the report on the pleural effusion cytology and cultures before we remove the pigtail catheter. This will likely be done on Friday. In the meantime we'll continue present supportive care measures, continue cardiac meds, strongly doubt need for antibiotics at this point and strongly doubt pneumonia with parapneumonic effusion. The clinical history does not suggest pneumonia or infection. At this point I see no need for antibiotics.Will transfer the patient to a monitor bed on , and we'll continue to follow. Time with Patient: Less than 30
--- NOTE | 2018-06-06 12:28 | PN ---
PROGRESS NOTE Moody is an 87-year-old gentleman who was sent to the hospital from our office yesterday because of shortness of breath and a large pleural effusion. He had a CT scan of the chest that confirmed the pleural effusion and he went on to have a chest tube placement. This morning, patient is feeling better. Has mild discomfort at the chest tube site. There is no shortness of breath. The patient had an echocardiogram at last visit that showed normal LV systolic function. On exam, afebrile. Heart rate is 77 beats per minute. Blood pressure is 110/70. Respiratory rate is 18. Chest exam reveals diminished air entry at the bases, Heart exam reveals first and second heart sounds. No gallop. Examination of extremities did not reveal any edema. Peripheral pulses are palpable. LABS: Labs showed that the hemoglobin is 10.1, potassium is 4.3 creatinine is 0.8. Pleural fluid analysis shows that it is hemorrhagic fluid. Protein level is very high. ASSESSMENT: 1. Large symptomatic hemorrhagic pleural effusion, status post thoracentesis with chest tube placement. 2. Coronary artery disease, status post coronary artery bypass grafting. 3. Dyslipidemia. PLAN: I will continue the patient on current medications including metoprolol, Lipitor, Lasix, aspirin. MMODL / IJN: [id number] /
--- NOTE | 2018-06-06 12:43 | P.PN ---
Subjective Progress Note Date: 06/06/18 Patient seen and examined at bedside family's present, reporting improved breathing shortness of breath improving as well. Has chest tube in place with minimal output, patient status post thoracentesis secondary to left pleural effusion and hemothorax. No acute events overnight Objective - Vital Signs Vital signs: Vital Signs Temp 98.5 F 06/06/18 08:00 Pulse 77 06/06/18 09:00 Resp 7 L 06/06/18 09:00 BP 108/73 06/06/18 08:00 Pulse Ox 92 L 06/06/18 09:00 Intake & Output 06/05/18 06/06/18 06/06/18 18:59 06:59 18:59 Intake Total 50 1060 560 Output Total 220 695 30 Balance -170 365 530 Weight 79.379 kg Intake: IV 50 50 0.9 @ 50 50 50 Oral 360 Tube Feeding 1010 200 Output: Chest Tube Drainage 220 120 30 Left Pleural Pigtail 220 120 30 Urine 575 Other: # Voids 1 1 - Exam Constitutional: No acute distress, conversant, pleasant Eyes: Anicteric sclerae, moist conjunctiva, no lid-lag, PERRLA ENMT: NC/AT,Oropharynx clear, no erythema, exudates Neck:Supple, FROM, no masses, or JVD, No carotid bruits; No thyromegaly Lungs: Clear on the right diminished on the left with pigtail catheter connected to Pleur-evac Normal respiratory effort, no accessory muscle use Cardiovascular: Heart regular in rate and rhythm, No murmurs, gallops, or rubs no peripheral edema Abdominal: Soft Nontender, nom distended, no guarding, no rebound or rigidity, Normoactive bowel sounds No hepatomegaly, No splenomegaly, No palpable mass No abdominal wall hernia noted Skin: Normal temperature, tone, texture, turgor, No induration No subcutaneous nodules, No rash, lesions, No ulcers Extremities:No digital cyanosis No clubbing, Pedal pulses intact and symmetrical Radial pulses intact and symmetrical Normal gait and station, No calf tenderness Psychiatric: Alert and oriented to person, place and time, Appropriate affect Intact judgement Neuro: Muscles Strength 5/5 in all 4 extremities, Sensation to light touch grossly present throughout, Cranial nerves II-XII grossly intact. No focal sensory deficits - Labs CBC & Chem 7: 06/06/18 04:16 06/06/18 04:16 Labs: Abnormal Lab Results - Last 24 Hours (Table) 06/05/18 06/05/18 06/06/18 Range/Units 18:06 18:06 04:16 RBC 3.80 L 3.57 L (4.30-5.90) m/uL Hgb 10.7 L 10.1 L (13.0-17.5) gm/dL Hct 33.9 L 31.9 L (39.0-53.0) % RDW 17.1 H 17.0 H (11.5-15.5) % Plt Count 145 L 117 L (150-450) k/uL Lymphocytes # 0.8 L 0.9 L (1.0-4.8) k/uL Sodium 134 L (137-145) mmol/L Calcium (8.4-10.2) mg/dL Albumin (3.5-5.0) g/dL 06/06/18 Range/Units 04:16 RBC (4.30-5.90) m/uL Hgb (13.0-17.5) gm/dL Hct (39.0-53.0) % RDW (11.5-15.5) % Plt Count (150-450) k/uL Lymphocytes # (1.0-4.8) k/uL Sodium 132 L (137-145) mmol/L Calcium 8.3 L (8.4-10.2) mg/dL Albumin 2.9 L (3.5-5.0) g/dL Microbiology - Last 24 Hours (Table) 06/05/18 18:00 Gram Stain - Preliminary Pleural Fluid Body Fluid Culture - Preliminary 06/05/18 18:00 Fungal Culture - Preliminary Lung - Left 06/05/18 18:00 Anaerobic Culture - Preliminary Pleural Fluid 06/05/18 18:00 Acid Fast Bacilli Culture - Preliminary Lung Aspirate - Left Assessment and Plan (1) Pleural effusion Narrative/Plan: * Left-sided pleural effusion with hemothorax * Etiology not known * Pleural fluid analysis pending * status post thoracentesis with placement of left-sided pigtail catheter and Pleur-evac Current Visit: Yes Status: Acute Code(s): J90 - PLEURAL EFFUSION, NOT ELSEWHERE CLASSIFIED SNOMED Code(s): 34316317 (2) Dyspnea on exertion Narrative/Plan: * Secondary to problem above #1 Current Visit: No Status: Acute Code(s): R06.09 - OTHER FORMS OF DYSPNEA SNOMED Code(s): 98388537 (3) Hyponatremia Narrative/Plan: * Mild likely secondary to ongoing diuretic use Current Visit: No Status: Acute Code(s): E87.1 - HYPO-OSMOLALITY AND HYPONATREMIA SNOMED Code(s): 52452352 (4) Chronic diastolic (congestive) heart failure Narrative/Plan: * Currently not in CHF exacerbation previously diastolic * Continue metoprolol and Lasix Current Visit: Yes Status: Chronic Code(s): I50.32 - CHRONIC DIASTOLIC (CONGESTIVE) HEART FAILURE SNOMED Code(s): 400598006 (5) Pericardial effusion Current Visit: Yes Status: Acute Code(s): I31.3 - PERICARDIAL EFFUSION (NONINFLAMMATORY) SNOMED Code(s): 523638508 Plan: * Appreciated pulmonary and cartilage recommendations * Follow-up pleural fluid analysis * Anticipated discharge 1-2 days Time with Patient: Greater than 30
[2018-06-06] MEDS: ATORVASTATIN 20 MG TAB PO SCH (20:45)
[2018-06-07] MEDS: HYDROcodone/APAP 7.5-325MG 1 EACH TAB PO SCH ×9 (00:31→21:17)
[2018-06-07 05:54] LABS: Anisocytosis Slight; Basophils % (A) 0 %; Eosinophils # (A) 0.2 k/uL (0-0.7); Eosinophils % (A) 3 %; HCT 31.6 % (39.0-53.0); Hypochromasia Moderate; Lymphocytes # (A) 0.7 k/uL (1.0-4.8); Lymphocytes % (A) 14 %; MCH 27.8 pg (25.0-35.0); MCHC 31.5 g/dL (31.0-37.0); MCV 88.2 fL (80.0-100.0); Monocytes # (A) 0.3 k/uL (0-1.0); Monocytes % (A) 6 %; Neutrophils # (A) 3.9 k/uL (1.3-7.7); Neutrophils % (A) 75 %; Platelet Count 131 k/uL (150-450); RBC 3.58 m/uL (4.30-5.90); RDW 17.1 % (11.5-15.5); WBC 5.3 k/uL (3.8-10.6)
[2018-06-07 06:04] LABS: ALT 25 U/L (21-72); AST 20 U/L (17-59); Albumin 2.9 g/dL (3.5-5.0); Alkaline Phosphatase 61 U/L (38-126); Anion Gap 5 mmol/L; Blood Urea Nitrogen 13 mg/dL (9-20); Calcium 8.1 mg/dL (8.4-10.2); Carbon Dioxide 27 mmol/L (22-30); Chloride 101 mmol/L (98-107); Glucose 88 mg/dL (74-99); Potassium 4.1 mmol/L (3.5-5.1); Sodium 133 mmol/L (137-145); Total Bilirubin 0.8 mg/dL (0.2-1.3); Total Protein 6.2 g/dL (6.3-8.2)
[2018-06-07] MEDS: LEVOTHYROXINE 25 MCG TAB PO SCH (06:21)
[2018-06-07] MEDS ORDERED: HYDROcodone/APAP 7.5-325MG 1 EACH TAB PO ONE (06:23)
--- NOTE | 2018-06-07 07:24 | XR ---
EXAMINATION TYPE: XR chest 1V portable DATE OF EXAM: 06/07/2018 HISTORY: Shortness of breath. COMPARISON: 06/06/2018 TECHNIQUE: Single view of the chest is submitted. FINDINGS: Demonstrated are scattered senescent parenchymal change. Patchy infiltrate left lower lobe remains essentially unchanged. Left basilar pleural catheter with t iny stable left sided pneumothorax. The heart is stable. Hilar and mediastinal structures are within normal limits. Degenerative changes are seen of the dorsal spine. IMPRESSION: 1. Patchy infiltrate left lower lobe remains essentially unchanged. Left basilar pleural catheter wi th tiny stable left sided pneumothorax.
[2018-06-07] MEDS: MULTIVITAMINS, THERA 1 EACH TAB PO SCH (09:27)
[2018-06-07] MEDS: ASPIRIN 81 MG PO SCH (09:27)
[2018-06-07] MEDS: FUROSEMIDE 20 MG TAB PO SCH (09:27)
[2018-06-07] MEDS: INDOMETHACIN 25 MG CAP PO SCH ×3 (09:28→21:18)
[2018-06-07] MEDS: COLCHICINE 0.6 MG EACH PO SCH ×2 (09:28→21:19)
[2018-06-07] MEDS: METOPROLOL TARTRATE 25 MG TAB PO SCH ×2 (09:28→21:17)
--- NOTE | 2018-06-07 10:16 | P.PN ---
Subjective Progress Note Date: 06/07/18 Patient seen and examined at bedside doing well today, denies any shortness of breath or trouble breathing today. No acute events overnight, he had a chest x- ray earlier this morning indicating patchy left lower lobe infiltrate with left basilar pleural catheter with tiny stable left-sided pneumothorax. Having normal saturations on room air. Hemoglobin holding stable at 10g. Serum sodium 133 Objective - Vital Signs Vital signs: Vital Signs Temp 97.5 F L 06/07/18 08:00 Pulse 83 06/07/18 08:00 Resp 20 06/07/18 08:00 BP 116/66 06/07/18 08:00 Pulse Ox 95 06/07/18 08:00 Intake & Output 06/06/18 06/07/18 06/07/18 18:59 06:59 18:59 Intake Total 560 800 Output Total 271 730 Balance 289 70 Weight 76.1 kg Intake: Oral 360 800 Tube Feeding 200 Output: Chest Tube Drainage 70 20 Left Pleural Pigtail 70 20 Urine 200 710 Stool 1 Other: # Voids 1 0 - Exam Constitutional: No acute distress, conversant, pleasant Eyes: Anicteric sclerae, moist conjunctiva, no lid-lag, PERRLA ENMT: NC/AT,Oropharynx clear, no erythema, exudates Neck:Supple, FROM, no masses, or JVD, No carotid bruits; No thyromegaly Lungs: Clear on the right diminished on the left with pigtail catheter connected to Pleur-evac Normal respiratory effort, no accessory muscle use Cardiovascular: Heart regular in rate and rhythm, No murmurs, gallops, or rubs no peripheral edema Abdominal: Soft Nontender, nom distended, no guarding, no rebound or rigidity, Normoactive bowel sounds No hepatomegaly, No splenomegaly, No palpable mass No abdominal wall hernia noted Skin: Normal temperature, tone, texture, turgor, No induration No subcutaneous nodules, No rash, lesions, No ulcers Extremities:No digital cyanosis No clubbing, Pedal pulses intact and symmetrical Radial pulses intact and symmetrical Normal gait and station, No c edy tenderness Psychiatric: Alert and oriented to person, place and time, Appropriate affect Intact judgement Neuro: Muscles Strength 5/5 in all 4 extremities, Sensation to light touch grossly present throughout, Cranial nerves II-XII grossly intact. No focal sensory deficits - Labs CBC & Chem 7: 06/07/18 05:01 06/07/18 05:01 Labs: Abnormal Lab Results - Last 24 Hours (Table) 06/07/18 06/07/18 Range/Units 05:01 05:01 RBC 3.58 L (4.30-5.90) m/uL Hgb 10.0 L (13.0-17.5) gm/dL Hct 31.6 L (39.0-53.0) % RDW 17.1 H (11.5-15.5) % Plt Count 131 L (150-450) k/uL Lymphocytes # 0.7 L (1.0-4.8) k/uL Sodium 133 L (137-145) mmol/L Calcium 8.1 L (8.4-10.2) mg/dL Total Protein 6.2 L (6.3-8.2) g/dL Albumin 2.9 L (3.5-5.0) g/dL Microbiology - Last 24 Hours (Table) 06/05/18 18:00 Gram Stain - Preliminary Pleural Fluid Body Fluid Culture - Preliminary 06/05/18 18:00 Acid Fast Bacilli Smear - Final Lung Aspirate - Left Acid Fast Bacilli Culture - Preliminary Assessment and Plan (1) Pleural effusion Narrative/Plan: * Left-sided pleural effusion with hemothorax * Etiology not known * Pleural fluid analysis pending * status post thoracentesis with placement of left-sided pigtail catheter and Pleur-evac Current Visit: Yes Status: Acute Code(s): J90 - PLEURAL EFFUSION, NOT ELSEWHERE CLASSIFIED SNOMED Code(s): 71864360 (2) Dyspnea on exertion Narrative/Plan: * Secondary to problem above #1 Current Visit: No Status: Acute Code(s): R06.09 - OTHER FORMS OF DYSPNEA SNOMED Code(s): 79378842 (3) Hyponatremia Narrative/Plan: * Mild likely secondary to ongoing diuretic use Current Visit: No Status: Acute Code(s): E87.1 - HYPO-OSMOLALITY AND HYPONATREMIA SNOMED Code(s): 41000527 (4) Chronic diastolic (congestive) heart failure Narrative/Plan: * Currently not in CHF exacerbation previously diastolic * Continue metoprolol and Lasix Current Visit: Yes Status: Chronic Code(s): I50.32 - CHRONIC DIASTOLIC (CONGESTIVE) HEART FAILURE SNOMED Code(s): 684606595 (5) Pericardial effusion Current Visit: Yes Status: Acute Code(s): I31.3 - PERICARDIAL EFFUSION (NONINFLAMMATORY) SNOMED Code(s): 304756874 Plan: * Appreciated pulmonary and cartilage recommendations * Follow-up pleural fluid analysis * Anticipated discharge tomorrow
--- NOTE | 2018-06-07 10:19 | CT ---
EXAMINATION TYPE: CT chest tube insertion DATE OF EXAM: 06/05/2018 COMPARISON: Ultrasound 06/05/2018 HISTORY: Left side chest tube insertion post pulmonology attempt at thoracentesis CT DLP: 836 mGycm The procedure is discussed with the patient, the risks, complications, benefits and alternatives, wer e discussed and any questions were answered. Informed consent was obtained. The patient is placed lateral position on the CT table, prepped and draped in the usual sterile fashion. Utilizing a 22-gauge Chiba needle access into the left pleural space was achieved and there is conver frank to an O.03 system. Placement O.035 guidewire and serial dilation 8 Mongolian with placement 8 Frenc h drainage catheter within the left pleural space. Repeat imaging demonstrated ideal placement cathet er. Sample sent to pathology for analysis. All elements of maximal barrier and sterile technique were utilized. Approximately 1200 cc of bloody material was aspirated. IMPRESSION: 1. Successful CT guided left-sided chest tube insertion for suspected hemothorax
--- NOTE | 2018-06-07 11:27 | P.PN ---
Subjective Progress Note Date: 06/07/18 Principal diagnosis: left sided hemothorax his is an 87-year-old white male with history of coronary artery disease, previous CABG, history of chronic moderate pericardial effusion, normally sees Dr. Carreon in the cardiology clinic. Patient was seen today by Dr. Carreon for progressive shortness of breath, his shortness of breath has been worse over the last 6 months. Patient had previous history of diastolic congestive heart failure, history of pericarditis, and history of pericardial effusion as well as mild diastolic congestive heart failure. He was recently discharged on multiple medications including colchicine, Indocin, Lasix. Today when he was seen by Dr. Carreon, he recommended patient to go to the ER for evaluation of shortness of breath and left-sided pleural effusion. CT of the chest clearly showed evidence of large left-sided pleural effusion, this was confirmed by ultrasound. I was asked to see the patient for evaluation of the pleural effusion. So the patient in the emergency room, attempted to drain the fluid, however the fluid was difficult to drain, and it was noted to be bloody/dark blood was noted in the aspiration needle. Recommended interventional radiology to have a pigtail catheter placement and this was done shortly after I saw the patient and attempted left sided thoracentesis. Post thoracentesis attempt, I did recommend a chest x-ray which showed no increase in the said the pleural effusion, and there was no evidence of pneumothorax. Patient was sent to radiation oncology special procedures, and he underwent left sided pigtail catheter placement by interventional radiology/Dr. De Oliveira. Over 2 L of bloody effusion was removed from the left pleural space, patient became diaphoretic, and he was having some chest discomfort and the fluid was being drained. Then I went back and saw the patient in the interventional radiology procedure room, he was already feeling better, blood pressure was noted to be 118/80, heart rate was 85, and O2 saturation was in the 90s. Patient was feeling better especially after the tube was clamped follow-up chest x-ray showed complete expansion of the left lung, and no residual effusion noted. Considering the amount of blood removed from the left pleural space, patient was admitted to the intensive care unit for further evaluation. The fluid was sent for different diagnostic studies including cultures and including cytology. Again follow-up chest x-ray showed significant improvement, and clinically the patient felt much better shortly after fluid was drained from the left chest. Patient was reevaluated today on 06/06/2018, remains in the ICU, chest tube remains in place, minimal drainage overnight, chest x-ray showed pigtail catheter in the proper position, left lower lobe atelectasis, strongly doubt infiltrate, and a trace of effusion noted, tiny apical barely noted apical pneumothorax. Patient is asymptomatic. His WBC count is 4.9 hemoglobin is 10.1 his electrolytes are normal. Again there is no evidence of any significant drainage of the left sided chest tube overnight.the fluid LDH is elevated as expected, and protein is also elevated. Clearly needs an exudative pleural effusion, grossly bloody.cultures and cytology are pending. Reevaluated today on 06/07/2018, patient remains in the ICU, seems to be doing fairly well. Continues to have the pigtail catheter in place, less than 20 mL of drainage overnight, hence I was seriously considering removing the catheter today, but I prefer that we see the final report including cultures on the fluid before removal of the pigtail catheter. Patient is relatively asymptomatic, his hemoglobin is holding at 10, denies any shortness of breath, no chest pain, chest x-ray was reviewed today, there is minimal atelectasis at the left base, no evidence of any pleural effusion, there may be a small tiny tiny apical pneumothorax, not considered to be clinically significant at this point. And that is definitely no air leak noted in the pleural VAC Objective - Vital Signs Vital signs: Vital Signs Temp 97.5 F L 06/07/18 08:00 Pulse 83 06/07/18 08:00 Resp 20 06/07/18 08:00 BP 116/66 06/07/18 08:00 Pulse Ox 95 06/07/18 08:00 Intake & Output 06/06/18 06/07/18 06/07/18 18:59 06:59 18:59 Intake Total 560 800 Output Total 271 730 Balance 289 70 Weight 76.1 kg Intake: Oral 360 800 Tube Feeding 200 Output: Chest Tube Drainage 70 20 Left Pleural Pigtail 70 20 Urine 200 710 Stool 1 Other: # Voids 1 0 - Exam Physical Exam: Revealed an 87-year-old white male in no distress, asymptomatic, on room air.O2 saturation is 95%. Head: Atraumatic, normocephalic. HEENT:[Neck is supple.] [No neck masses.] [No thyromegaly.] [No JVD.] Chest: [clear breath sounds on the right side, diminished at the left side, left sided pigtail catheter was noted connected to Pleur-evac. no evidence of air leak. Cardiac Exam: [Normal S1 and S2, no S3 gallop, 2/6 systolic murmur is noted] Abdomen: [Soft, nontender, no megaly, no rebound, no guarding, normal bowel sounds.] Extremities: [No clubbing, no edema, no cyanosis.] Neurological Exam: [No focal neurologic deficit.] psychiatric: Normal mood, affect and mental status examination. skin: No rashes. - Labs CBC & Chem 7: 06/07/18 05:01 06/07/18 05:01 Labs: Abnormal Lab Results - Last 24 Hours (Table) 06/07/18 06/07/18 Range/Units 05:01 05:01 RBC 3.58 L (4.30-5.90) m/uL Hgb 10.0 L (13.0-17.5) gm/dL Hct 31.6 L (39.0-53.0) % RDW 17.1 H (11.5-15.5) % Plt Count 131 L (150-450) k/uL Lymphocytes # 0.7 L (1.0-4.8) k/uL Sodium 133 L (137-145) mmol/L Calcium 8.1 L (8.4-10.2) mg/dL Total Protein 6.2 L (6.3-8.2) g/dL Albumin 2.9 L (3.5-5.0) g/dL Microbiology - Last 24 Hours (Table) 06/05/18 18:00 Gram Stain - Preliminary Pleural Fluid Body Fluid Culture - Preliminary 06/05/18 18:00 Acid Fast Bacilli Smear - Final Lung Aspirate - Left Acid Fast Bacilli Culture - Preliminary Assessment and Plan Assessment: impression: 1 left-sided pleural effusion, consistent with left sided hemothorax. Exact etiology is not clear at this point, fluid was sent for different diagnostic studies. Results are pending. 2shortness of breath secondary to left sided pleural effusion/hemothorax.resolved. 3 history of coronary artery disease and previous CABG 4history of degenerative joint disease 5 history of pericarditis and pericardial effusion 6 history of congestive heart failure and diastolic dysfunction 7 history of chronic anemia 8 history of prostate cancer. 9 hypercholesterolemia 10 GERD without esophagitis. Recommendation:patient is presently on overflow in the ICU, I reviewed and discussed with the patient his chest x-ray findings, cultures from the fluid are pending, strongly doubt infection based on the clinical presentation, and even malignancy is very unlikely but not entirely ruled out. Suggested that we'll keep that pigtail catheter until at least the final culture report comes back tomorrow, and if no evidence of infection, that pigtail catheter could be removed and he could be discharged home. Then follow-up on outpatient basis. In the meantime patient is back on his usual medications, he could be transferred out of the ICU once a bed is available, continue incentive spirometry, continue to and related the patient in the hallway, and possible discharge planning in the next 24 hours once the pigtail catheter was removed. Time with Patient: Less than 30
[2018-06-07] MEDS ORDERED: CALCIUM CARBONATE 500 MG CHEWABLE PO PRN (17:45)
[2018-06-07] MEDS: ATORVASTATIN 20 MG TAB PO SCH (21:17)
[2018-06-08] MEDS: HYDROcodone/APAP 7.5-325MG 1 EACH TAB PO SCH ×8 (01:13→21:49)
[2018-06-08 05:03] LABS: Anisocytosis Slight; Basophils % (A) 0 %; Eosinophils # (A) 0.2 k/uL (0-0.7); Eosinophils % (A) 3 %; HCT 30.5 % (39.0-53.0); HGB 9.6 gm/dL (13.0-17.5); Hypochromasia Slight; Lymphocytes # (A) 0.6 k/uL (1.0-4.8); Lymphocytes % (A) 12 %; MCH 27.7 pg (25.0-35.0); MCHC 31.6 g/dL (31.0-37.0); MCV 87.8 fL (80.0-100.0); Mean Platelet Volume 9.8; Monocytes # (A) 0.4 k/uL (0-1.0); Monocytes % (A) 8 %; Neutrophils # (A) 4.1 k/uL (1.3-7.7); Neutrophils % (A) 75 %; Platelet Count 128 k/uL (150-450); RBC 3.47 m/uL (4.30-5.90); RDW 17.1 % (11.5-15.5); WBC 5.5 k/uL (3.8-10.6)
[2018-06-08 05:15] LABS: ALT 25 U/L (21-72); AST 20 U/L (17-59); Albumin 2.8 g/dL (3.5-5.0); Alkaline Phosphatase 61 U/L (38-126); Anion Gap 5 mmol/L; Blood Urea Nitrogen 11 mg/dL (9-20); Calcium 8.3 mg/dL (8.4-10.2); Carbon Dioxide 27 mmol/L (22-30); Chloride 100 mmol/L (98-107); Glucose 92 mg/dL (74-99); Potassium 4.3 mmol/L (3.5-5.1); Sodium 132 mmol/L (137-145); Total Bilirubin 0.8 mg/dL (0.2-1.3); Total Protein 6.1 g/dL (6.3-8.2)
[2018-06-08] MEDS: LEVOTHYROXINE 25 MCG TAB PO SCH (06:29)
--- NOTE | 2018-06-08 08:03 | XR ---
EXAMINATION TYPE: XR chest 1V portable DATE OF EXAM: 06/08/2018 COMPARISON: Prior chest x-ray 06/07/2018 HISTORY: Chest tube, pneumothorax TECHNIQUE: Single frontal view of the chest is obtained. FINDINGS: Minimal left apical pneumothorax noted. Left-sided pigtail catheter is noted at the lung b ase. Heart remains enlarged, patient is post median sternotomy. Basilar increased density persists, t here are overlying cardiac leads. Aorta is dense. IMPRESSION: Basilar atelectasis and associated effusions versus pneumonia or edema
[2018-06-08] MEDS: ASPIRIN 81 MG PO SCH (09:32)
[2018-06-08] MEDS: INDOMETHACIN 25 MG CAP PO SCH ×3 (09:32→21:53)
[2018-06-08] MEDS: METOPROLOL TARTRATE 25 MG TAB PO SCH ×2 (09:34→21:48)
[2018-06-08] MEDS: COLCHICINE 0.6 MG EACH PO SCH ×2 (09:34→21:53)
[2018-06-08] MEDS: FUROSEMIDE 20 MG TAB PO SCH (09:34)
--- NOTE | 2018-06-08 09:51 | P.PN ---
Subjective Progress Note Date: 06/08/18 Principal diagnosis: Left-sided hemothorax This is an 87-year-old white male with history of coronary artery disease, previous CABG, history of chronic moderate pericardial effusion, normally sees Dr. Carreon in the cardiology clinic. Patient was seen today by Dr. Carreon for progressive shortness of breath, his shortness of breath has been worse over the last 6 months. Patient had previous history of diastolic congestive heart failure, history of pericarditis, and history of pericardial effusion as well as mild diastolic congestive heart failure. He was recently discharged on multiple medications including colchicine, Indocin, Lasix. Today when he was seen by Dr. Carreon, he recommended patient to go to the ER for evaluation of shortness of breath and left-sided pleural effusion. CT of the chest clearly showed evidence of large left-sided pleural effusion, this was confirmed by ultrasound. I was asked to see the patient for evaluation of the pleural effusion. So the patient in the emergency room, attempted to drain the fluid, however the fluid was difficult to drain, and it was noted to be bloody/dark blood was noted in the aspiration needle. Recommended interventional radiology to have a pigtail catheter placement and this was done shortly after I saw the patient and attempted left sided thoracentesis. Post thoracentesis attempt, I did recommend a chest x-ray which showed no increase in the said the pleural effusion, and there was no evidence of pneumothorax. Patient was sent to radiation oncology special procedures, and he underwent left sided pigtail catheter placement by interventional radiology/Dr. De Oliveira. Over 2 L of bloody effusion was removed from the left pleural space, patient became diaphoretic, and he was having some chest discomfort and the fluid was being drained. Then I went back and saw the patient in the interventional radiology procedure room, he was already feeling better, blood pressure was noted to be 118/80, heart rate was 85, and O2 saturation was in the 90s. Patient was feeling better especially after the tube was clamped follow-up chest x-ray showed complete expansion of the left lung, and no residual effusion noted. Considering the amount of blood removed from the left pleural space, patient was admitted to the intensive care unit for further evaluation. The fluid was sent for different diagnostic studies including cultures and including cytology. Again follow-up chest x-ray showed significant improvement, and clinically the patient felt much better shortly after fluid was drained from the left chest. Patient was reevaluated today on 06/06/2018, remains in the ICU, chest tube remains in place, minimal drainage overnight, chest x-ray showed pigtail catheter in the proper position, left lower lobe atelectasis, strongly doubt infiltrate, and a trace of effusion noted, tiny apical barely noted apical pneumothorax. Patient is asymptomatic. His WBC count is 4.9 hemoglobin is 10.1 his electrolytes are normal. Again there is no evidence of any significant drainage of the left sided chest tube overnight.the fluid LDH is elevated as expected, and protein is also elevated. Clearly needs an exudative pleural effusion, grossly bloody.cultures and cytology are pending. Reevaluated today on 06/07/2018, patient remains in the ICU, seems to be doing fairly well. Continues to have the pigtail catheter in place, less than 20 mL of drainage overnight, hence I was seriously considering removing the catheter today, but I prefer that we see the final report including cultures on the fluid before removal of the pigtail catheter. Patient is relatively asymptomatic, his hemoglobin is holding at 10, denies any shortness of breath, no chest pain, chest x-ray was reviewed today, there is minimal atelectasis at the left base, no evidence of any pleural effusion, there may be a small tiny tiny apical pneumothorax, not considered to be clinically significant at this point. And that is definitely no air leak noted in the pleural VAC On 06/08/2018 patient seen in follow-up in intensive care unit, he is awake and alert, oriented 3, he has been ambulating about the unit, tolerating activity very well, left sided pigtail chest tube is in place, and there has been only 20 mL of serosanguineous output and last 24 hours. Chest x-ray shows basilar atelectasis and associated pleural effusions. She is working on the incentive spirometry, he denies any pain. Gram stain of the pleural fluid showed no growth, cultures are pending thus far, so far negative, cytology is pending, we called the lab, and were told that they had just received a specimen because the late in the evening on Friday. Room air pulse ox is 96%, afebrile, hemodynamically stable, no complaints of chest pain, no cough or congestion. These labs have been reviewed, and showed white blood cell, 5.5, hemoglobin of 9.6, serum sodium is 132, the rest of the electrolytes and renal profile are normal Objective - Vital Signs Vital signs: Vital Signs Temp 98.2 F 06/08/18 09:00 Pulse 91 06/08/18 09:00 Resp 22 06/08/18 09:00 BP 125/83 06/08/18 09:00 Pulse Ox 96 06/08/18 09:00 Intake & Output 06/07/18 06/08/18 06/08/18 18:59 06:59 18:59 Output Total 200 1010 Balance -200 -1010 Weight 76.2 kg Output: Chest Tube Drainage 0 10 Left Pleural Pigtail 0 10 Urine 200 1000 Other: # Voids 3 1 1 # Bowel Movements 1 - Exam GENERAL EXAM: Alert, pleasant, 87-year-old white male comfortable in no apparent distress. HEAD: Normocephalic/atraumatic. EYES: Normal reaction of pupils, equal size. Conjunctiva pink, sclera white. NOSE: Clear with pink turbinates. THROAT: No erythema or exudates. NECK: No masses, no JVD, no thyroid enlargement, no adenopathy. CHEST: No chest wall deformity. Symmetrical expansion. Left-sided pigtail chest tube is in place, connected to Pleur-evac, with no air leak, has only been 20 mL of serosanguineous output in the last 24 hours. LUNGS: Equal air entry with basilar crackles CVS: Regular rate and rhythm, normal S1 and S2, no gallops, no murmurs, no rubs ABDOMEN: Soft, nontender. No hepatosplenomegaly, normal bowel sounds, no guarding or rigidity. EXTREMITIES: No clubbing, no edema, no cyanosis, 2+ pulses and upper and lower extremities. MUSCULOSKELETAL: Muscle strength and tone normal. SPINE: No scoliosis or deformity SKIN: No rashes CENTRAL NERVOUS SYSTEM: Alert and oriented -3. No focal deficits, tone is normal in all 4 extremities. PSYCHIATRIC: Alert and oriented -3. Appropriate affect. Intact judgment and insight. - Labs CBC & Chem 7: 06/08/18 04:15 06/08/18 04:15 Labs: Abnormal Lab Results - Last 24 Hours (Table) 06/08/18 06/08/18 Range/Units 04:15 04:15 RBC 3.47 L (4.30-5.90) m/uL Hgb 9.6 L (13.0-17.5) gm/dL Hct 30.5 L (39.0-53.0) % RDW 17.1 H (11.5-15.5) % Plt Count 128 L (150-450) k/uL Lymphocytes # 0.6 L (1.0-4.8) k/uL Sodium 132 L (137-145) mmol/L Calcium 8.3 L (8.4-10.2) mg/dL Total Protein 6.1 L (6.3-8.2) g/dL Albumin 2.8 L (3.5-5.0) g/dL Microbiology - Last 24 Hours (Table) 06/05/18 18:00 Gram Stain - Preliminary Pleural Fluid Body Fluid Culture - Preliminary 06/05/18 18:00 Anaerobic Culture - Preliminary Pleural Fluid Assessment and Plan Plan: Assessment: 1 left-sided pleural effusion, consistent with left sided hemothorax. Exact etiology is not clear at this point, fluid was sent for different diagnostic studies. Results are pending. 2shortness of breath secondary to left sided pleural effusion/hemothorax.resolved. 3 history of coronary artery disease and previous CABG 4history of degenerative joint disease 5 history of pericarditis and pericardial effusion 6 history of congestive heart failure and diastolic dysfunction 7 history of chronic anemia 8 history of prostate cancer. 9 hypercholesterolemia 10 GERD without esophagitis. Plan: Continue with deep breathing and coughing, ambulation, incentive spirometry use, today's chest x-ray has been reviewed, and shows bibasilar atelectasis, and small pleural effusions, who called the lab about the cytology results, and they had actually just received the specimen because the procedure was done on Friday evening. Cultures of the pleural fluid remained negative thus far, final cultures are pending, clinically patient is stable, no specific complaints. We will discontinue the pigtail catheter once we have the results of the cultures back, she is stable to go out of the intensive care unit today to regular medical surgical floor. I performed a history & physical examination of the patient and discussed their management with my nurse practitioner, Rebecca Perdomo. I reviewed the nurse practitioner's note and agree with the documented findings and plan of care. Lung sounds are positive for bibasilar rales. The findings and the impression was discussed with the patient. I attest to the documentation by the nurse practitioner. Time with Patient: Less than 30
--- NOTE | 2018-06-08 11:55 | P.PN ---
Subjective Progress Note Date: 06/08/18 Patient seen and examined at bedside, sitting up in chair. Has no complaints, has been up and ambulatory, tolerating activity very well. Minimal output of 20 mL of serosanguineous fluid from his left chest tube pigtail catheter. Chest x- ray shows bibasilar atelectasis with an associated pleural effusion. Working on his IS, no acute events overnight Objective - Vital Signs Vital signs: Vital Signs Temp 98.2 F 06/08/18 09:00 Pulse 91 06/08/18 09:00 Resp 22 06/08/18 09:00 BP 125/83 06/08/18 09:00 Pulse Ox 96 06/08/18 09:00 Intake & Output 06/07/18 06/08/18 06/08/18 18:59 06:59 18:59 Output Total 200 1010 Balance -200 -1010 Weight 76.2 kg Output: Chest Tube Drainage 0 10 Left Pleural Pigtail 0 10 Urine 200 1000 Other: # Voids 3 1 1 # Bowel Movements 1 - Exam Constitutional: No acute distress, conversant, pleasant Eyes: Anicteric sclerae, moist conjunctiva, no lid-lag, PERRLA ENMT: NC/AT,Oropharynx clear, no erythema, exudates Neck:Supple, FROM, no masses, or JVD, No carotid bruits; No thyromegaly Lungs: Clear on the right diminished on the left with pigtail catheter connected to Pleur-evac Normal respiratory effort, no accessory muscle use Cardiovascular: Heart regular in rate and rhythm, No murmurs, gallops, or rubs no peripheral edema Abdominal: Soft Nontender, nom distended, no guarding, no rebound or rigidity, Normoactive bowel sounds No hepatomegaly, No splenomegaly, No palpable mass No abdominal wall hernia noted Skin: Normal temperature, tone, texture, turgor, No induration No subcutaneous nodules, No rash, lesions, No ulcers Extremities:No digital cyanosis No clubbing, Pedal pulses intact and symmetrical Radial pulses intact and symmetrical Normal gait and station, No calf tenderness Psychiatric: Alert and oriented to person, place and time, Appropriate affect Intact judgement Neuro: Muscles Strength 5/5 in all 4 extremities, Sensation to light touch grossly present throughout, Cranial nerves II-XII grossly intact. No focal sensory deficits - Labs CBC & Chem 7: 06/08/18 04:15 06/08/18 04:15 Labs: Abnormal Lab Results - Last 24 Hours (Table) 06/08/18 06/08/18 Range/Units 04:15 04:15 RBC 3.47 L (4.30-5.90) m/uL Hgb 9.6 L (13.0-17.5) gm/dL Hct 30.5 L (39.0-53.0) % RDW 17.1 H (11.5-15.5) % Plt Count 128 L (150-450) k/uL Lymphocytes # 0.6 L (1.0-4.8) k/uL Sodium 132 L (137-145) mmol/L Calcium 8.3 L (8.4-10.2) mg/dL Total Protein 6.1 L (6.3-8.2) g/dL Albumin 2.8 L (3.5-5.0) g/dL Microbiology - Last 24 Hours (Table) 06/05/18 18:00 Gram Stain - Preliminary Pleural Fluid Body Fluid Culture - Preliminary 06/05/18 18:00 Anaerobic Culture - Preliminary Pleural Fluid Assessment and Plan (1) Pleural effusion Narrative/Plan: * Left-sided pleural effusion with hemothorax (resolved) * Etiology not known * Pleural fluid analysis and cytology pending * status post thoracentesis with placement of left-sided pigtail catheter and Pl eur-evac Current Visit: Yes Status: Acute Code(s): J90 - PLEURAL EFFUSION, NOT ELSEWHERE CLASSIFIED SNOMED Code(s): 94393805 (2) Dyspnea on exertion Narrative/Plan: * Secondary to problem above #1 Current Visit: No Status: Acute Code(s): R06.09 - OTHER FORMS OF DYSPNEA SNOMED Code(s): 14781833 (3) Hyponatremia Narrative/Plan: * Mild likely secondary to ongoing diuretic use Current Visit: No Status: Acute Code(s): E87.1 - HYPO-OSMOLALITY AND HYPONATREMIA SNOMED Code(s): 42683223 (4) Chronic diastolic (congestive) heart failure Narrative/Plan: * Currently not in CHF exacerbation previously diastolic * Continue metoprolol and Lasix Current Visit: Yes Status: Chronic Code(s): I50.32 - CHRONIC DIASTOLIC (CONGESTIVE) HEART FAILURE SNOMED Code(s): 450327467 (5) Pericardial effusion Current Visit: Yes Status: Acute Code(s): I31.3 - PERICARDIAL EFFUSION (NONINFLAMMATORY) SNOMED Code(s): 425430291 Plan: * Appreciated pulmonary and cardiology recommendations * Follow-up pleural fluid cytology pending should be back by tomorrow * Anticipated discharge tomorrow
[2018-06-08] MEDS: MULTIVITAMINS, THERA 1 EACH TAB PO SCH (13:04)
[2018-06-08] MEDS: ATORVASTATIN 20 MG TAB PO SCH (21:54)
[2018-06-09] MEDS: HYDROcodone/APAP 7.5-325MG 1 EACH TAB PO SCH ×5 (00:27→12:09)
[2018-06-09] MEDS: LEVOTHYROXINE 25 MCG TAB PO SCH (06:02)
[2018-06-09 06:09] VITALS: RESP 16; TEMP 97.9
[2018-06-09] MEDS: COLCHICINE 0.6 MG EACH PO SCH (08:03)
[2018-06-09] MEDS: ASPIRIN 81 MG PO SCH (08:03)
[2018-06-09] MEDS: METOPROLOL TARTRATE 25 MG TAB PO SCH (08:03)
[2018-06-09] MEDS: FUROSEMIDE 20 MG TAB PO SCH (08:03)
[2018-06-09] MEDS: INDOMETHACIN 25 MG CAP PO SCH (08:04)
[2018-06-09 09:35] LABS: Anisocytosis Slight; HCT 32.3 % (39.0-53.0); HGB 10.3 gm/dL (13.0-17.5); Hypochromasia Moderate; MCHC 31.8 g/dL (31.0-37.0); MCV 88.1 fL (80.0-100.0); Mean Platelet Volume 10.5; Platelet Count 156 k/uL (150-450); Poikilocytosis Slight; RBC 3.66 m/uL (4.30-5.90); RDW 16.7 % (11.5-15.5); WBC 6.7 k/uL (3.8-10.6)
[2018-06-09 09:57] LABS: Anion Gap 6 mmol/L; Blood Urea Nitrogen 13 mg/dL (9-20); Calcium 8.6 mg/dL (8.4-10.2); Carbon Dioxide 29 mmol/L (22-30); Chloride 99 mmol/L (98-107); Glucose 101 mg/dL (74-99); Potassium 4.3 mmol/L (3.5-5.1); Sodium 134 mmol/L (137-145)
--- NOTE | 2018-06-09 11:29 | P.PN ---
Subjective Progress Note Date: 06/09/18 Principal diagnosis: Left-sided hemothorax This is an 87-year-old white male with history of coronary artery disease, previous CABG, history of chronic moderate pericardial effusion, normally sees Dr. Carreon in the cardiology clinic. Patient was seen today by Dr. Carreon for progressive shortness of breath, his shortness of breath has been worse over the last 6 months. Patient had previous history of diastolic congestive heart failure, history of pericarditis, and history of pericardial effusion as well as mild diastolic congestive heart failure. He was recently discharged on multiple medications including colchicine, Indocin, Lasix. Today when he was seen by Dr. Carreon, he recommended patient to go to the ER for evaluation of shortness of breath and left-sided pleural effusion. CT of the chest clearly showed evidence of large left-sided pleural effusion, this was confirmed by ultrasound. I was asked to see the patient for evaluation of the pleural effusion. So the patient in the emergency room, attempted to drain the fluid, however the fluid was difficult to drain, and it was noted to be bloody/dark blood was noted in the aspiration needle. Recommended interventional radiology to have a pigtail catheter placement and this was done shortly after I saw the patient and attempted left sided thoracentesis. Post thoracentesis attempt, I did recommend a chest x-ray which showed no increase in the said the pleural effusion, and there was no evidence of pneumothorax. Patient was sent to radiation oncology special procedures, and he underwent left sided pigtail catheter placement by interventional radiology/Dr. De Oliveira. Over 2 L of bloody effusion was removed from the left pleural space, patient became diaphoretic, and he was having some chest discomfort and the fluid was being drained. Then I went back and saw the patient in the interventional radiology procedure room, he was already feeling better, blood pressure was noted to be 118/80, heart rate was 85, and O2 saturation was in the 90s. Patient was feeling better especially after the tube was clamped follow-up chest x-ray showed complete expansion of the left lung, and no residual effusion noted. Considering the amount of blood removed from the left pleural space, patient was admitted to the intensive care unit for further evaluation. The fluid was sent for different diagnostic studies including cultures and including cytology. Again follow-up chest x-ray showed significant improvement, and clinically the patient felt much better shortly after fluid was drained from the left chest. Patient was reevaluated today on 06/06/2018, remains in the ICU, chest tube remains in place, minimal drainage overnight, chest x-ray showed pigtail catheter in the proper position, left lower lobe atelectasis, strongly doubt infiltrate, and a trace of effusion noted, tiny apical barely noted apical pneumothorax. Patient is asymptomatic. His WBC count is 4.9 hemoglobin is 10.1 his electrolytes are normal. Again there is no evidence of any significant drainage of the left sided chest tube overnight.the fluid LDH is elevated as expected, and protein is also elevated. Clearly needs an exudative pleural effusion, grossly bloody.cultures and cytology are pending. Reevaluated today on 06/07/2018, patient remains in the ICU, seems to be doing fairly well. Continues to have the pigtail catheter in place, less than 20 mL of drainage overnight, hence I was seriously considering removing the catheter today, but I prefer that we see the final report including cultures on the fluid before removal of the pigtail catheter. Patient is relatively asymptomatic, his hemoglobin is holding at 10, denies any shortness of breath, no chest pain, chest x-ray was reviewed today, there is minimal atelectasis at the left base, no evidence of any pleural effusion, there may be a small tiny tiny apical pneumothorax, not considered to be clinically significant at this point. And that is definitely no air leak noted in the pleural VAC On 06/08/2018 patient seen in follow-up in intensive care unit, he is awake and alert, oriented 3, he has been ambulating about the unit, tolerating activity very well, left sided pigtail chest tube is in place, and there has been only 20 mL of serosanguineous output and last 24 hours. Chest x-ray shows basilar atelectasis and associated pleural effusions. She is working on the incentive spirometry, he denies any pain. Gram stain of the pleural fluid showed no growth, cultures are pending thus far, so far negative, cytology is pending, we called the lab, and were told that they had just received a specimen because the late in the evening on Friday. Room air pulse ox is 96%, afebrile, hemodynamically stable, no complaints of chest pain, no cough or congestion. These labs have been reviewed, and showed white blood cell, 5.5, hemoglobin of 9.6, serum sodium is 132, the rest of the electrolytes and renal profile are normal On 06/09/2018 patient seen in follow-up on medical surgical floor. He is awake and alert, in no acute distress. left Sided pigtail chest tube catheter is in place, and there has been no drainage from it in the last 24 hours. Pleural fluid cytology still pending, pleural fluid cultures remain negative, vital signs have been stable, no fever or chills, no complaints overnight, no acute events, we will consult interventional radiology for removal of the pigtail catheter. We'll discharge home today if he remains stable Objective - Vital Signs Vital signs: Vital Signs Temp 97.9 F 06/09/18 05:12 Pulse 80 06/09/18 05:12 Resp 16 06/09/18 05:12 BP 119/77 06/09/18 05:12 Pulse Ox 96 06/09/18 05:12 Intake & Output 06/08/18 06/09/18 06/09/18 18:59 06:59 18:59 Intake Total 240 Output Total 1 0 Balance 239 0 Weight 75.3 kg Intake: Oral 240 Output: Chest Tube Drainage 0 0 Left Pleural Pigtail 0 0 Urine 0 Stool 1 Other: # Voids 1 2 # Bowel Movements 1 - Exam GENERAL EXAM: Alert, pleasant, 87-year-old white male comfortable in no apparent distress. HEAD: Normocephalic/atraumatic. EYES: Normal reaction of pupils, equal size. Conjunctiva pink, sclera white. NOSE: Clear with pink turbinates. THROAT: No erythema or exudates. NECK: No masses, no JVD, no thyroid enlargement, no adenopathy. CHEST: No chest wall deformity. Symmetrical expansion. Left-sided pigtail chest tube is in place, connected to Pleur-evac, with no air leak, there has been no output from the chest tube in the last 24 hours. LUNGS: Equal air entry with basilar crackles CVS: Regular rate and rhythm, normal S1 and S2, no gallops, no murmurs, no rubs ABDOMEN: Soft, nontender. No hepatosplenomegaly, normal bowel sounds, no guarding or rigidity. EXTREMITIES: No clubbing, no edema, no cyanosis, 2+ pulses and upper and lower extremities. MUSCULOSKELETAL: Muscle strength and tone normal. SPINE: No scoliosis or deformity SKIN: No rashes CENTRAL NERVOUS SYSTEM: Alert and oriented -3. No focal deficits, tone is normal in all 4 extremities. PSYCHIATRIC: Alert and oriented -3. Appropriate affect. Intact judgment and insight. - Labs CBC & Chem 7: 06/09/18 09:05 06/09/18 09:05 Labs: Abnormal Lab Results - Last 24 Hours (Table) 06/09/18 06/09/18 Range/Units 09:05 09:05 RBC 3.66 L (4.30-5.90) m/uL Hgb 10.3 L (13.0-17.5) gm/dL Hct 32.3 L (39.0-53.0) % RDW 16.7 H (11.5-15.5) % Sodium 134 L (137-145) mmol/L Glucose 101 H (74-99) mg/dL Microbiology - Last 24 Hours (Table) 06/05/18 18:00 Gram Stain - Preliminary Pleural Fluid Body Fluid Culture - Preliminary Assessment and Plan Plan: Assessment: 1 left-sided pleural effusion, consistent with left sided hemothorax. Exact etiology is not clear at this point, fluid was sent for different diagnostic studies. Results are pending. 2shortness of breath secondary to left sided pleural effusion/hemothorax.resolved. 3 history of coronary artery disease and previous CABG 4history of degenerative joint disease 5 history of pericarditis and pericardial effusion 6 history of congestive heart failure and diastolic dysfunction 7 history of chronic anemia 8 history of prostate cancer. 9 hypercholesterolemia 10 GERD without esophagitis. Plan: We'll consult interventional radiology for removal of the left-sided pigtail chest tube catheter, follow-up chest x-ray in 1 hour, if chest x-ray is negative for pneumothorax or any other acute findings the patient remains stable june ischarge home today. I performed a history & physical examination of the patient and discussed their management with my nurse practitioner, Rebecca Perdomo. I reviewed the nurse practitioner's note and agree with the documented findings and plan of care. Lung sounds are positive for bibasilar rales. The findings and the impression was discussed with the patient. I attest to the documentation by the nurse practitioner. Time with Patient: Less than 30
[2018-06-09] MEDS: MULTIVITAMINS, THERA 1 EACH TAB PO SCH (12:09)
--- NOTE | 2018-06-09 14:12 | XR ---
EXAMINATION TYPE: XR chest 2V DATE OF EXAM: 06/09/2018 COMPARISON: Prior chest x-ray 06/08/2018 HISTORY: Status post chest tube removal TECHNIQUE: Frontal and lateral views of the chest are obtained. FINDINGS: There is interval improved aeration at the left lung base. Left chest tube has been remove d. No evident pneumothorax. No other significant interval change. Pleural thickening persists along t he left lateral chest margin. IMPRESSION: No evident complication status post chest tube removal.
[2018-06-09 15:15] VITALS: BP 115/70; PULSE 81
--- NOTE | 2018-06-09 15:24 | P.DS ---
Providers Date of admission: 06/05/18 12:53 Expected date of discharge: 06/09/18 Attending physician: Rodolfo Bazan MD Consults: 06/05/18 12:53 Consult Physician Urgent Consulting Provider: Marko Wood Consult Reason/Comments: pericardial effusion, pleural effusion Do you want consulting provider notified?: Yes 06/05/18 13:08 Consult Physician Urgent Consulting Provider: Gardenia Paris Consult Reason/Comments: eval for thoracentesis Do you want consulting provider notified?: Yes Primary care physician: Juwan Hadley Hospital Course: Discharge Diagnosis: Left-sided pleural effusion, Recent acute pericarditis CAD Chronic diastolic CHF Chronic anemia Hx of prostate cancer HTN GERD with esophagitis Hospital Course: Patient is an 87-year-old male patient of Dr. Hadley with a past medical history of diastolic congestive heart failure, recent acute pericarditis with pericardial effusion, coronary artery disease and CABG who was referred to the ER after a follow-up visit with Dr. Taylor. In the ER he underwent an extensive evaluation. CTA of the chest was negative for PE but showed moderate left-sided pleural effusion and a small right-sided pleural effusion. He was also found to have a sodium of 133 hemoglobin of 11.3, TSH 7.1, and T4 1.14. He was admitted for further monitoring and care. Pulmonary was consulted. They attempted a bedside thoracentesis, however there are me able to obtain a significant amount of fluid. He then had a pigtail catheter placed by interventional radiology. At that time 1200 mL of bloody material was aspirated. Cardiology was consulted and recommended continuing current care. Due to the bloody nature of the effusion he was monitored in the ICU. He was monitored in ICU for 2 days his hemoglobin remained stable and he continued to improve. He was up and walking in the hallways. He was doing well. Initial microbiology showed no signs of infection. It was determined he was stable at the pigtail catheter removed this was done at bedside on 06/09. He tolerated the procedure well and postop x-ray was normal. Cytology was reviewed which showed reactive mesothelial cells and blood favoring a reactive process. This is likely reactive to his recent acute pericarditis. He was determined stable for discharge home. He will maintain on indomethacin and culture seen. He will follow-up with Dr. Nixon in the office in the next 3-5 days. He prefers to follow with Dr. Nixon and Dr. Hadley's absence. I have asked that he ensure he received a chest x-ray within the next 7 days. His levothyroxine was increased to 50 mcg due to TSH 7.1. Patient seen and examined at bedside. No chest pain, SOB, palpitations, nausea, or vomiting. Vital signs reviewed and stable. General: non toxic, no distress, appears at stated age Derm: warm, dry Head: atraumatic, normocephalic, symmetric Eyes: EOMI, no lid lag, anicteric sclera Mouth: no lip lesion, mucus membranes moist Cardiovascular: S1S2 reg, no murmur, positive posterior tibial pulse bilateral, Lungs: CTA bilateral, no rhonchi, no rales , no accessory muscle use Abdominal: soft, nontender to palpation, no guarding, no appreciable organomegaly Ext: no gross muscle atrophy, no edema, no contractures Neuro: CN II-XI grossly intact, no focal neuro deficits Psych: Alert, oriented, appropriate affect A total of 35 minutes of time were spent preparing this complex discharge summary . Pertinent Studies: CTA chest-moderate to large left-sided pleural effusion Chest ultrasound-left pleural fluid collection Procedures: 06/05- left sided thoracentesis 06/05- left sided pig tail cath insertion Patient Condition at Discharge: Stable Plan - Discharge Summary Discharge Rx Participant: No New Discharge Prescriptions: Continue Simvastatin [Zocor] 40 mg PO HS Multivitamins, Thera [Multivitamin (formulary)] 1 tab PO DAILY Hydrocodone/Acetaminophen [Ivanhoe 7.5-325] 0.5 tab PO Q3H Aspirin 81 mg PO DAILY chew Colchicine [Colcrys] 0.6 mg PO BID #60 each Indomethacin [Indocin] 25 mg PO TID #18 cap Furosemide [Lasix] 20 mg PO DAILY #30 tab Levothyroxine Sodium [Synthroid] 25 mcg PO DAILY@0630 #30 tab Metoprolol Tartrate [Lopressor] 25 mg PO BID Acetaminophen Tab [Tylenol] 250 - 500 mg PO BID PRN PRN Reason: Pain Discontinued Ibuprofen [Motrin] 600 mg PO Q8HR PRN PRN Reason: Pain Discharge Medication List Multivitamins, Thera [Multivitamin (formulary)] 1 tab PO DAILY 12/17/13 [History] Simvastatin [Zocor] 40 mg PO HS 12/17/13 [History] Hydrocodone/Acetaminophen [[place]hoe 7.5-325] 0.5 tab PO Q3H 10/11/16 [History] Aspirin 81 mg PO DAILY chew 05/14/18 [Rx] Colchicine [Colcrys] 0.6 mg PO BID #60 each 05/14/18 [Rx] Furosemide [Lasix] 20 mg PO DAILY #30 tab 05/14/18 [Rx] Indomethacin [Indocin] 25 mg PO TID #18 cap 05/14/18 [Rx] Acetaminophen Tab [Tylenol] 250 - 500 mg PO BID PRN 06/05/18 [History] Metoprolol Tartrate [Lopressor] 25 mg PO BID 06/05/18 [History] Levothyroxine Sodium [Synthroid] 50 mcg PO DAILY #30 tab 06/09/18 [Rx] Follow up Appointment(s)/Referral(s): Gardenia Paris MD [STAFF PHYSICIAN] - 1 Week Activity/Diet/Wound Care/Special Instructions: Heart healthy diet Activity as tolerated Repeat CXR when you follow with Dr. Paris. Leave pressure dressing in place for 24 hours and then remove. If continues to drain please contact Dr. Paris's office
== END 2018-06-09 15:56 | disposition home or self-care (01) | DRG 187 ==
LOC: EC 10:00 → 3SCARD 12:53 → 2SICU 17:59 → 4MS4W 06-08 20:23
PROVIDERS: ADMIT Family Medicine; ATTEND Family Medicine
PROC: 0W9B3ZZ Drainage of Left Pleural Cavity, Percutaneous Approach (ICD-10-PCS; principal; 2018-06-05)
PROC: 0W9B30Z Drainage of Left Pleural Cavity with Drainage Device, Percutaneous Approach (ICD-10-PCS; 2018-06-05)
DX: J90 Pleural effusion, not elsewhere classified (principal); I31.3 Pericardial effusion (noninflammatory); E87.1 Hypo-osmolality and hyponatremia; I50.32 Chronic diastolic (congestive) heart failure; J98.11 Atelectasis; J94.2 Hemothorax; R06.09 Other forms of dyspnea; I48.91 Unspecified atrial fibrillation; D64.9 Anemia, unspecified; M19.90 Unspecified osteoarthritis, unspecified site; I25.10 Atherosclerotic heart disease of native coronary artery without angina pectoris; E78.5 Hyperlipidemia, unspecified; H91.91 Unspecified hearing loss, right ear; F32.9 Major depressive disorder, single episode, unspecified; I44.0 Atrioventricular block, first degree; I11.0 Hypertensive heart disease with heart failure; E78.00 Pure hypercholesterolemia, unspecified; K21.9 Gastro-esophageal reflux disease without esophagitis; D50.9 Iron deficiency anemia, unspecified; I83.91 Asymptomatic varicose veins of right lower extremity; Z79.899 Other long term (current) drug therapy; Z79.82 Long term (current) use of aspirin; Z79.890 Hormone replacement therapy; Z96.643 Presence of artificial hip joint, bilateral; Z85.46 Personal history of malignant neoplasm of prostate; Z95.1 Presence of aortocoronary bypass graft; Z98.42 Cataract extraction status, left eye; Z98.41 Cataract extraction status, right eye; Z86.010 Personal history of colon polyps; Z87.891 Personal history of nicotine dependence; Z82.3 Family history of stroke
CPT/HCPCS: 32551; 36415; 71045; 71046; 71275; 76604; 80048; 80053; 82945; 83615; 83735; 83880; 84155; 84157; 84439; 84443; 84484; 85025; 85027; 85610; 85730; 87070; 87075; 87102; 87116; 87205; 87206; 87252; 87496; 87498; 87502; 87529; 87634; 87798; 88108; 88305; 89050; 93005; 99285

== ENCOUNTER → 2018-10-13 | Outpatient (CLI) | payer MEDICARE ==
--- NOTE | 2018-10-13 08:20 | US ---
EXAMINATION TYPE: US abdomen complete DATE OF EXAM: 10/13/2018 COMPARISON: Limited abdominal ultrasound dated 05/13/2017 CLINICAL HISTORY: R16.1 Splenomegaly, not elsewhere classified. Laparoscopy/ Cholecystectomy EXAM MEASUREMENTS: Liver Length: 15.1 cm Gallbladder Wall: surgically removed CBD: 0.9 cm Spleen: 10.7 cm Right Kidney: 10.3 x 5.9 x 4.3 cm Left Kidney: 10.1 x 5.3 x 5.6 cm Pancreas: Visualized portions are within normal limits. Liver: multiple hepatic cysts with largest in right lobe measuring 3.7 x 3.1 x 1.9cm. This contains a single thin internal septation. The remainder of the hepatic cysts appear entirely simple. The larg est lesion previously measured 3.1 x 2.5 x 2.6 cm. Gallbladder: surgically absent Evidence for sonographic Ferrell's sign: no CBD: size is wnl post cholecystectomy Spleen: wnl Right Kidney: inferior pole cortical cyst = 1.0 x 0.9 x 0.9cm. This is simple and benign appearing. Left Kidney: oval, hyperechoic cortical focus = 0.5 x 0.5 x 0.5cm noted lateral lower pole, probabl e angiomyolipoma Upper IVC: wnl Abd Aorta: ectatic appearance throughout IMPRESSION: 1. Interval growth of the largest minimally complex hepatic cyst measuring 3.7 cm. This contains a si ngle thin internal septation. Remainder of the hepatic cysts appear entirely simple and benign. 2. No current splenomegaly by size criteria. 3. Bosniak 1 benign right renal cyst. 4. 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
== END | disposition home or self-care (01) ==
LOC: RADUSWWP 06:46
PROVIDERS: ATTEND Internal Medicine Hematology & Oncology
DX: K76.89 Other specified diseases of liver (principal); N28.1 Cyst of kidney, acquired
CPT/HCPCS: 76700

== ENCOUNTER → 2018-10-23 | Outpatient (CLI) | payer MEDICARE ==
--- NOTE | 2018-10-23 09:38 | XR ---
EXAMINATION TYPE: XR bone survey complete DATE OF EXAM: 10/23/2018 COMPARISON: None HISTORY: Thrombocytopenia, arthritis FINDINGS: There is a hiatal hernia, cardiomegaly, and hyperinflation suggestive of COPD. Ectasia of the thoraci c aorta noted. Aneurysm not excluded. Postsurgical changes noted. No pneumothorax. Severe multilevel degenerative disc disease of the cervical spine with retrolisthesis of C4 on C5. No definite osseous lesions. Bilateral upper extremity disease demonstrated AC joint arthropathy but no evidence of osseous lesion Calvarium demonstrates no definite focal intraosseous lesion. Postsurgical changes involving the pelvis and bilateral hip. Diffuse osteopenia noted. Degenerative c hange lower lumbar spine. Multilevel degenerative disc disease and scoliotic curvature of the thoracic and lumbar spine compati ble severe degenerative disc disease. Postsurgical change involving the right hip. Arthropathy of the bilateral knees. Postsurgical change involving the left hip. No definite intraosseous lesions. IMPRESSION: 1. Multilevel degenerative disc disease involving the cervical, thoracic and lumbar spine. 2. No definite intraosseous lesion.
== END | disposition home or self-care (01) ==
LOC: RADXRMAIN 08:54
PROVIDERS: ATTEND Internal Medicine Hematology & Oncology
DX: M51.35 Other intervertebral disc degeneration, thoracolumbar region (principal); M50.321 Other cervical disc degeneration at C4-C5 level; D69.6 Thrombocytopenia, unspecified; D64.9 Anemia, unspecified; I10 Essential (primary) hypertension
CPT/HCPCS: 77075

== ENCOUNTER → 2020-08-26 | Outpatient (CLI) | payer MEDICARE | END | disposition home or self-care (01) ==